=== PATIENT | male | born 1945 | race American Indian/Alaskan Native ===

== ENCOUNTER 2018-02-06 23:53 | Emergency (ER) | payer MEDICARE, OTHER ==
[~2018-02-06] VITALS: Ht 190.5 cm; Wt 108.9 kg
--- OUTSIDE RECORDS SUMMARY | ~2018-02-06 | XMS | Clinical Summary ---
Demographics + + + | Address | [id number] [place] [address] RD | | | [place] [address] | + + + | Home Phone | | + + + | Preferred Language | Unknown | + + + | Marital Status | Single | + + + | Scientology Affiliation | Unknown | + + + | Race | Unknown | + + + | Ethnic Group | Unknown | + + + Author + + + | Author | [employer] | + + + | Organization | [facility] [employer] | + + + | Address | Unknown | + + + | Phone | Unavailable | + + + Support + + +---------+ + | Name | Relationship | Address | Phone | + + +---------+ + | Lesli Garcia | ECON | Unknown | | + + +---------+ + Care Team Providers + +------+ + | Care Hot Knife Foxing Cutter Name | Role | Phone | + +------+ + | Clinic, [facility] | PP | Unavailable | | Community | | | + +------+ + Allergies Not on [...] | + + + Plan of Treatment Not on file Results Not on filefrom Last 3 Months"
--- OUTSIDE RECORDS SUMMARY | ~2018-02-06 | XMS | Clinical Summary ---
Demographics + + + | Address | [address] | | | [place] [address] | + + + | Home Phone | | + + + | Preferred Language | Unknown | + + + | Marital Status | Single | + + + | Pentecostal Affiliation | Unknown | + + + | Race | Unknown | + + + | Ethnic Group | Unknown | + + + Author + + + | Author | [facility] | | | and [facility] | + + + | Organization | [facility] | | | and [facility] | + + + | Address | Unknown | + + + | Phone | Unavailable | + + + Support + + + + + | Name | Relationship | Address | Phone | + + + + + | Maria T Vivas | ECON | [address] | | | | | [place], [place] | | | | | [address] | | + + + + + | Lesli Garcia | LAINA | [address] | | | | | [place], [place] | | | | | [address] | | + + + + + Care Team Providers + +------+ + | Care Asphalt Coater Name | Role | Phone | + [...] Eye Exam | | | | | (Bi-Annually) | 3 | | | + + [...] | + + + + + | COLON CANCER | | | | | SCREENING | 5 | | | | (COLONOSCOPY EVERY | | | | | 10 YEARS 50-75) | | | | + + + + + | Vaccine: | | | | | Pneumococcal 65+ | 0 | | | | Low/Medium Risk (1 | | | | | of 2 - PCV13) | | | | + + + + + | Vaccine: Influenza | | | | | (Season Ended) | 8 | | | + + [...] +--------+ +---------+ | MEDICARE | MEDICA | xxxxxxxxxx | Medica | [phone] | | | | RE | | re | [phone] | | | | PART A | | | | | | | AND B | | | | | + +--------+ +--------+ +---------+ | [facility] | IHS | xxxxxxxxx | Indemn | | | | SERVICE [...] | Self | [birth year] Home: | [address] | | | al/Fam | | 1946 | [phone] | [address] [place] | | | [place] | | | [phone] | [phone] | + +--------+ +--------+ + +
--- OUTSIDE RECORDS SUMMARY | ~2018-02-06 | XMS | Clinical Summary ---
Demographics + + + | Address | [address] | | | [place] [address] | + + + | Home Phone | | + + + | Preferred Language | Unknown | + + + | Marital Status | Single | + + + | Samaritan Affiliation | Unknown | + + + | Race | Unknown | + + + | Ethnic Group | Unknown | + + + Author + + + | Author | [facility] | | | and [facility] | + + + | Organization | [facility] | | | and [facility] | + + + | Address | Unknown | + + + | Phone | Unavailable | + + + Support + + + + + | Name | Relationship | Address | Phone | + + + + + | Maria T Vivas | ECON | [address] | | | | | [place], [place] | | | | | [address] | | + + + + + | Lesli Garcia | LAINA | [address] | | | | | [place], [place] | | | | | [address] | | + + + + + Care Team Providers + +------+ + | Care Grocery Carrier Name | Role | Phone | + [...] | | + +--------+ +--------+ +---------+ | [facility] | IHS | xxxxxxxxx | Indemn [...] | Self | [birth year] | Home: | [address] | | | al/Fam | | 1946 | [phone] | [address] [place] | | | [place] | | | [phone] | [phone] | + +--------+ +--------+ + +
--- OUTSIDE RECORDS SUMMARY | ~2018-02-06 | XMS | Clinical Summary ---
Demographics + + + | Address | [id number] [place] [address] RD | | | [place] [address] | + + + | Home Phone [...] + + + | Author | [employer] | + + + | Organization | [facility] [employer] | + + + | Address | Unknown | + + + | Phone | Unavailable | + + + Support + + +---------+ + | Name | Relationship | Address | Phone | + + +---------+ + | Lesli Garcia | ECON | Unknown | | + + +---------+ + Care Team Providers + +------+ + | Care Web Site Specialist Name | Role | Phone | + +------+ + | Clinic, [facility] | PP | Unavailable | | Community [...]
[~2018-02-06 23:53] MED LIST: AMARYL4 MG PO; ANUSOL-HC25 MG RC; ASPIR 8181 MG PO; CIALIS20 MG PO; CLINDAMYCIN HC300 MG PO; D-20002000 UNIT PO; DOXYCYCLINE HY100 MG PO; HYDROCHLOROTH12.5 M1 PO; IPRAT-ALBUT 0.5-3 ML INH; JANUMET XR 50-1 EAC1 PO; LANTUS SOL100 UNIT/1 SUB-Q; LANTUS100 UNITS/ SUB-Q; LISINOPRIL40 MG PO; METFORMIN HCL1000 MG PO; METOPROLOL SUC100 MG PO; METOPROLOL SUCC50 MG; MICRO AIR1 EACH MISC; NAPROSYN500 MG PO; PREDNISONE20 MG PO; ROSUVASTATIN CA20 MG PO; ZOFRAN ODT4 MG PO; [UNRECOGNIZED DRUG - OTHER] TOP; [UNRECOGNIZED DRUG - REMARK]
[2018-02-07] MEDS ORDERED: VITAMIN D-32000 UNIT PO (00:05)
[2018-02-07] MEDS ORDERED: JANUMET XR 50-1 EAC1 PO (00:06)
[2018-02-07] MEDS ORDERED: MEGA MULTI FOR1 EAC1 PO (00:07)
[2018-02-07] MEDS ORDERED: LANTUS SOL100 UNIT/1 SUB-Q (00:10)
== END 2018-02-07 01:27 | disposition home or self-care (01) ==
LOC: ED 23:53
DX: I10 Essential (primary) hypertension (principal); E11.9 Type 2 diabetes mellitus without complications; E78.00 Pure hypercholesterolemia, unspecified; Z87.891 Personal history of nicotine dependence; Z88.0 Allergy status to penicillin; Z88.8 Allergy status to other drugs, medicaments and biological substances; Z88.1 Allergy status to other antibiotic agents; Z79.4 Long term (current) use of insulin; Z79.82 Long term (current) use of aspirin; Z79.899 Other long term (current) drug therapy
CPT/HCPCS: 99281

== ENCOUNTER 2018-02-08 12:44 | Emergency (ER) | payer MEDICARE, OTHER ==
[~2018-02-08] VITALS: Ht 190.5 cm; Wt 108.9 kg
[~2018-02-08 12:44] MED LIST changes: +MEGA MULTI FOR1 EAC1 PO; +VITAMIN D-32000 UNIT PO
== END 2018-02-08 15:15 | disposition home or self-care (01) ==
LOC: ED 12:44
DX: I10 Essential (primary) hypertension (principal); E11.9 Type 2 diabetes mellitus without complications; E78.00 Pure hypercholesterolemia, unspecified; Z87.891 Personal history of nicotine dependence; Z88.0 Allergy status to penicillin; Z88.8 Allergy status to other drugs, medicaments and biological substances; Z88.1 Allergy status to other antibiotic agents; Z79.899 Other long term (current) drug therapy; Z79.4 Long term (current) use of insulin; Z79.82 Long term (current) use of aspirin
CPT/HCPCS: 99282

== ENCOUNTER 2018-12-23 15:55 | Emergency (ER) | payer MEDICARE, OTHER ==
[~2018-12-23] VITALS: Ht 190.5 cm; Wt 108.9 kg
--- OUTSIDE RECORDS SUMMARY | ~2018-12-23 | XMS | Clinical Summary ---
Demographics + + + | Address | [address] | | | [place] [address] | + + + | Home Phone | | + + + | Preferred Language | Unknown | + + + | Marital Status | Single | + + + | Sabianist Affiliation | Unknown | + + + | Race | Unknown | + + + | Ethnic Group | Unknown | + + + Author + + + | Author | [facility] | | | and [facility] | + + + | Organization | [facility] | | | and [facility] | + + + | Address | Unknown | + + + | Phone | Unavailable | + + + Support + + + + + | Name | Relationship | Address | Phone | + + + + + | Maria T Vivas | ECON | [address] | | | | | [place], [place] | | | | | [address] | | + + + + + | Lesli Garcia | LAINA | [address] | | | | | [place], [place] | | | | | [address] | | + + + + + Care Team Providers + +------+ + | Care River Guide Name | Role | Phone | + +------+ + | Maikol Birmingham DO | PP | | + +------+ + Allergies + + + + + + | Active Allergy | Reactions | Severity | Noted | Comments | | | | | Date | | + + + + + + | Penicillins | | | 10/01/20 | | | | | | 17 | | + + + + + + Current Medications + + +-------+---------+------+------+-------+ | Prescription | Sig. | Disp. | Refills | Star | End | Statu | | | | | | t | Date | s | | | | | | Date | | | + + +-------+---------+------+------+-------+ | aspirin 81 mg EC | Take 81 mg by mouth | | | | | Activ | | tablet | Daily. | | | | | e | + + +-------+---------+------+------+-------+ | cholecalciferol | Take 2,000 Units by | | | | | Activ | | (D3 HIGH POTENCY) | mouth Daily. | | | | | e | | 2,000 units capsule | | | | | | | + + +-------+---------+------+------+-------+ | insulin glargine | Inject under the | | | | | Activ | | (LANTUS) 100 | skin nightly. | | | | | e | | units/mL injection | | | | | | | | (vial) | | | | | | | + + +-------+---------+------+------+-------+ | glimepiride | Take 4 mg by mouth | | | | | Activ | | (AMARYL) 4 mg tablet | every morning | | | | | e | | | (before breakfast). | | | | | | + + +-------+---------+------+------+-------+ | | Take 5 mLs by mouth | | | | | Activ | | guaiFENesin-dextrome | 3 times daily as | | | | | e | | thorphan (ROBITUSSIN | needed for Cough. | | | | | | | DM) 100-10 mg/5 mL | | | | | | | | syrup | | | | | | | + + +-------+---------+------+------+-------+ | lisinopril | Take 40 mg by mouth | | | | | Activ | | (PRINIVIL,ZESTRIL) | Daily. | | | | | e | | 40 MG tablet | | | | | | | + + +-------+---------+------+------+-------+ | metoprolol | Take 100 mg by mouth | | | | | Activ | | succinate | Daily. | | | | | e | | (TOPROL-XL) 100 mg | | | | | | | | ER tablet | | | | | | | + + +-------+---------+------+------+-------+ | omeprazole | Take 20 mg by mouth | | | | | Activ | | (PRILOSEC) 20 mg | every morning | | | | | e | | capsule | (before breakfast). | | | | | | + + +-------+---------+------+------+-------+ | rosuvastatin | Take 20 mg by mouth | | | | | Activ | | (CRESTOR) 20 mg | nightly. | | | | | e | | tablet | | | | | | | + + +-------+---------+------+------+-------+ | | Take 1 tablet by | | | | | Activ | | sitagliptan-metFORMI | mouth 2 times daily | | | | | e | | N (JANUMET) 50-1000 | (with breakfast & | | | | | | | MG per tablet | dinner). | | | | | | + + +-------+---------+------+------+-------+ | tadalafil (CIALIS) | Take 20 mg by mouth | | | | | Activ | | 20 MG tablet | as needed for | | | | | e | | | Erectile | | | | | | | | Dysfunction. 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) | 10/01/2017 | + + + | Chronic hoarseness | 10/01/2017 | + + + | Cough | 10/01/2017 | + + + Social History + +-------+ [...] on file | | + + + Last Filed Vital Signs + + + + | Vital Sign | Reading | Time Taken | + + + + | Blood Pressure | 203/93 | 10/01/2017 0749 PST | + + + + | Pulse | 62 | 10/01/2017 1322 PST | + + + + | Temperature | 1 C (33.8 F) | 10/01/201749 PST | + + + [...] | Body Mass Index | 32.85 | 10/01/2017 1322 PST | + + + + Plan of Treatment + [...] + + + + | Hemoglobin A1c Q3 | | | | | Months | 3 | | | + + [...] | | | | | (#1) | 8 | | | + + + + + Results Not on filefrom Last 3 Months Insurance + +--------+ +--------+ +---------+ | Payer | Benefi | Subscriber | Type | Phone | Address | | | t Plan | ID | | | | | | / | | | | | | | Group | | | | | + +--------+ +--------+ +---------+ | MEDICARE | MEDICA | [id number] | Medica | [phone] | | | | RE | | re | [phone] | | | | PART A | | | | | | | AND B | | | | | + +--------+ +--------+ +---------+ | HEALTH | IHS | [id number] | Indemn | | | | SERVICE | YELLOW | | ity | | | | | [place] | | | | | + +--------+ +--------+ +---------+ + +--------+ +--------+ + + | Guarantor Name | Accoun | Relation to | Date | Phone | Billing Address | | | t Type | Patient | of | | | | | | | | | | + +--------+ +--------+ + + | PATRICIO VIVAS | Person | Self | [birth year] Home: | [address] | | | al/Fam | | 1946 | [phone] | [place] | | | [place] | | | [phone] | [phone] | + +--------+ +--------+ + +
--- OUTSIDE RECORDS SUMMARY | ~2018-12-23 | XMS | Clinical Summary ---
Demographics + + + | Address | [address] | | | [place] [address] | + + + | Home Phone | | + + + | Preferred Language | Unknown | + + + | Marital Status | Single | + + + | Gnosticism Affiliation | Unknown | + + + | Race | Unknown | + + + | Ethnic Group | Unknown | + + + Author + + + | Author | [facility] | | | and [facility] | + + + | Organization | [facility] | | | and [facility] | + + + | Address | Unknown | + + + | Phone | Unavailable | + + + Support + + + + + | Name | Relationship | Address | Phone | + + + + + | Maria T Vivas | ECON | [address] | | | | | [place], [place] | | | | | [address] | | + + + + + | Lesli Garcia | LAINA | [address] | | | | | [place], [place] | | | | | [address] | | + + + + + Care Team Providers + +------+ + | Care Christmas Tree Grower Name | Role | Phone | + [...] +--------+ +---------+ | MEDICARE | MEDICA | [id number] | Medica | [phone] | | | | RE | | re | [phone] | | | | PART A | | | | | | | AND B | | | | | + +--------+ +--------+ +---------+ | HEALTH | IHS | [id number] | Indemn | | | | SERVICE [...] | Self | [birth year] | Home: | [address] | | | al/Fam | | 1946 | [phone] | [place] | | | [place] | | | [phone] | [phone] | + +--------+ +--------+ + +
--- OUTSIDE RECORDS SUMMARY | ~2018-12-23 | XMS | Clinical Summary ---
Demographics + + + | Address | [address] [place] [address] RD | | | [place] [address] | + + + | Home Phone | | + + + | Preferred Language | Unknown | + + + | Marital Status | Single | + + + | Voodoo Affiliation | Unknown | + + + | Race | Unknown | + + + | Ethnic Group | Unknown | + + + Author + + + | Author | [employer] [employer] | + + + | Organization | [facility] [employer] [facility] | + + + | Address | Unknown | + + + | Phone | Unavailable | + + + Support + + +---------+ + | Name | Relationship | Address | Phone | + + +---------+ + | Lesli Garcia | ECON | Unknown | | + + +---------+ + Care Team Providers + +------+ + | Care Supervisor Phosphorus Processing Name | Role | Phone | + [...]
--- OUTSIDE RECORDS SUMMARY | ~2018-12-23 | XMS | Clinical Summary ---
Demographics + + + | Address | [address] [place] [address] RD | | | [place] [address] | + + + | Home Phone [...] + + + | Author | [employer] | + + + | Organization | [facility] [employer] | + + + | Address | Unknown | + + + | Phone | Unavailable | + + + Support + + +---------+ + | Name | Relationship | Address | Phone | + + +---------+ + | Lesli Garcia | ECON | Unknown | | + + +---------+ + Care Team Providers + +------+ + | Care Heel Scorer Name | Role | Phone | + [...]
== END 2018-12-23 17:11 | disposition home or self-care (01) ==
LOC: ED 15:55
DX: G43.109 Migraine with aura, not intractable, without status migrainosus (principal); E11.9 Type 2 diabetes mellitus without complications; I10 Essential (primary) hypertension; E78.00 Pure hypercholesterolemia, unspecified; F17.200 Nicotine dependence, unspecified, uncomplicated; Z90.49 Acquired absence of other specified parts of digestive tract; Z88.0 Allergy status to penicillin; Z88.1 Allergy status to other antibiotic agents; Z88.8 Allergy status to other drugs, medicaments and biological substances; Z79.82 Long term (current) use of aspirin; Z79.4 Long term (current) use of insulin; Z79.899 Other long term (current) drug therapy
CPT/HCPCS: 96372; 99283-25; J1885; J2550

== ENCOUNTER 2019-04-05 15:43 | Emergency (ER) | payer MEDICARE, OTHER ==
[~2019-04-05] VITALS: Ht 190.5 cm; Wt 109.8 kg
--- NOTE | 2019-04-07 11:37 | EKG ---
[facility] [address] [place], [place] [address] Signed Sinus bradycardia Right bundle branch block Abnormal ECG When compared with ECG of 13-AUG-2017 18:19, Right bundle branch block is now present Confirmed by COLT CISNEROS DO ([id number]) on 04/07/2019 11:37:21 AM Electronically Signed By: COLT CISNEROS DO 04/07/19 1137 PATIENT NAME: CLAUDETTE VIVASO [facility] Electrocardiogram DATE OF : 43 PHYSICIAN: COLT CISNEROS DO REPORT #: [id number] REPORT IS CONFIDENTIAL AND NOT TO BE RELEASED WITHOUT AUTHORIZATION
== END 2019-04-05 17:05 | disposition home or self-care (01) ==
LOC: ED 15:43
DX: I10 Essential (primary) hypertension (principal); E11.9 Type 2 diabetes mellitus without complications; Z87.891 Personal history of nicotine dependence; Z90.89 Acquired absence of other organs; Z88.0 Allergy status to penicillin; Z88.1 Allergy status to other antibiotic agents; Z88.8 Allergy status to other drugs, medicaments and biological substances; Z79.4 Long term (current) use of insulin; Z79.82 Long term (current) use of aspirin; Z79.899 Other long term (current) drug therapy
CPT/HCPCS: 80053; 85025; 93005; 93010; 99283-25

== ENCOUNTER 2019-07-13 22:23 | Emergency (ER) | payer MEDICARE, OTHER ==
[~2019-07-13] VITALS: Ht 190.5 cm; Wt 111.1 kg
--- OUTSIDE RECORDS SUMMARY | ~2019-07-13 | XMS | Clinical Summary ---
Demographics + + + | Address | [address] [place] [address] RD | | | [place] [address] | + + + | Home Phone | | + + + | Preferred Language | Unknown | + + + | Marital Status | Single | + + + | Mormonism Affiliation | Unknown | + + + | Race | Unknown | + + + | Ethnic Group | Unknown | + + + Author + + + | Author | [facility] (Historical as of | | | 05-21-19) | + + + | Organization | [facility] (Historical as of | | | 05-21-19) | + + + | Address | Unknown | + + + | Phone | Unavailable | + + + Support + + +---------+ + | Name | Relationship | Address | Phone | + + +---------+ + | Lesli Garcia | ECON | Unknown | | + + +---------+ + Care Team Providers + +------+ + | Care Health Care Law Specialist Name | Role | Phone | + +------+ + | Dr. 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; | | | | | | Chest pain, | | | | | | unspecified type | +--------+ + + + + | 04/12/ | Documentati | | Santo De La O, | | | 2019 | on Only | | MD | | +--------+ + + + + from Last 3 Months Social History + +-------+ +--------+------+ | Tobacco Use | Types | Packs/Day | Years | Date | | | | | Used | | + +-------+ +--------+------+ | Never Assessed | | | | | + +-------+ +--------+------+ + + + | Sex Assigned at | Date Recorded | | | | + + + | Not on file | | + + + Plan of Treatment + + + + + | Health Maintenance | Due Date | Last Done | Comments | + + + + + | Vaccine: | | | | | Dtap/Tdap/Td (1 - | 4 | | | | Tdap) | | | | + + + + + | Vaccine: Zoster (1 | | | | | of 2) | 5 | | | + + + + + | Vaccine: | | | | | Pneumococcal 65+ | 0 | | | | Low/Medium Risk (1 | | | | | of 2 - PCV13) | | | | + + + + + | Vaccine: Influenza | | | | | (#1) | 9 | | | + + + + + Procedures + +--------+ + + + | Procedure Name | Priori | Date/Time | Associated Diagnosis | Comments | | | ty | | | | + +--------+ + + + | ECHO OUTSIDE | Routin | 05/02/2019 | Hypertension, | Results for this | | INTERPRETATION | e | 4:47 PM | unspecified type | procedure are in the | | STANDARD | | PDT | Chest pain, | results section. | | | | | unspecified type | | + +--------+ + + + from Last 3 Months Results ECHO outside interpretation standard (05/02/2019 4:47 PM) + + + | Impressions | Performed At | + + + | 1. Overall left ventricular systolic function is normal with, an EF | [facility] | | between 60 - 65 %. 2. The right ventricle is normal in size and | [facility] | | function. 3. There is no evidence of pulmonary hypertension. 4. | | | There is no pericardial effusion. | | + + + + + + | Narrative | Performed At | + + + | Patient Name: Patricio Vivas Date of : 1945 | [facility] | | Performing Physician: Santo De La O | RADIOLOGY | | | | | INDICATIONS HTN, CP CONCLUSIONS 1. | | | Overall left ventricular systolic function is normal with, an EF | | | between 60 - 65 %. 2. The right ventricle is normal in size and | | | function. 3. There is no evidence of pulmonary hypertension. 4. | | | There is no pericardial effusion. FINDINGS -------- ECG rhythm: | | | Sinus rhythm. ECG rhythm: Resting bradycardia (HR<60bpm). Study: A | | | 2-dimensional transthoracic echocardiogram with m-mode, spectral and | | | color flow Doppler was perfomed. Study: This was a technically | | | adequate study. Left Ventricle: Overall left ventricular systolic | | | function is normal with, an EF between 60 - 65 %. Left Ventricle: | | | The left ventricle cavity size is normal. Left Ventricle: Left | | | ventricular wall thickness is normal. Left Ventricle: The diastolic | | | filling pattern indicates impaired relaxation consistent with mild | | | dysfunction (Grade I). Right Ventricle: The right ventricle is normal | | | in size and function. Left Atrium: The left atrium is mildly | | | enlarged. Right Atrium: The right atrium is mildly enlarged. Aortic | | | Valve: There is no evidence of aortic regurgitation. Aortic Valve: | | | There is no evidence of aortic stenosis. Aortic Valve: The aortic | | | valve appears to be trileaflet. Aortic Valve: Aortic valve is mildly | | | thickened. Mitral Valve: Normal appearing mitral valve. Mitral | | | Valve: There is trace mitral regurgitation. Tricuspid Valve: The | | | tricuspid valve appears structurally normal. Tricuspid Valve: Mild | | | tricuspid regurgitation present. Tricuspid Valve: There is no | | | evidence of pulmonary hypertension. Tricuspid Valve: The right | | | ventricular systolic pressure (pulmonary artery systolic pressure), as | | | measured by Doppler, is 30.33mmHg. Pulmonic Valve: Pulmonic valve | | | appears structurally normal. Pulmonic Valve: Mild pulmonic | | | regurgitation. Pericardium: There is no pericardial effusion. | | | Pericardium: No pleural effusion seen. IVC/Hepatic Veins: The | | | inferior vena cava is normal in size and collapses > 50 % with sniff, | | | indicating normal central venous pressures. 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 | | | MEASUREMENTS Ao asc: 3.81 cm Ao sinus: 3.91 | | | cm Ao st junct: 3.58 cm EDV(Teich): 93.92 ml IVSd: | | | 1.12 cm LVIDd: 4.53 cm LVPWd: 1.05 cm LVOT Area: 4.11 | | | cm2 LVOT Diam: 2.29 cm %FS: 36.56 % EF(Teich): 66.45 % | | | ESV(Teich): 31.50 ml LVIDs: 2.87 cm SV(Teich): 62.41 ml | | | RV Major: 7.28 cm RV Minor: 3.01 cm LVEF MOD A2C: | | | 63.36 % SV MOD A2C: 60.01 ml LVEF MOD A4C: 63.25 % SV MOD | | | A4C: 85.18 ml EF Biplane: 63.89 % LVEDV MOD BP: 116.54 | | | ml LVESV MOD BP: 42.07 ml LVEDV MOD A2C: 94.71 ml LVLd | | | A2C: 8.44 cm LVEDV MOD A4C: 134.67 ml LVLd A4C: 9.04 cm | | | LVESV MOD A2C: 34.69 ml LVLs A2C: 7.07 cm LVESV MOD | | | A4C: 49.48 ml LVLs A4C: 7.35 cm LAESV(A-L): 69.12 ml | | | LAESV Index (A-L): 29.41 ml/m2 LAAs A2C: 18.54 cm2 LAESV A-L | | | A2C: 55.59 ml LALs A2C: 5.24 cm LAAs A4C: 20.75 cm2 | | | LAESV A-L A4C: 77.37 ml LALs A4C: 4.72 cm RAAs: 15.78 | | | cm2 RAESV A-L: 37.51 ml RAESV MOD: 37.87 ml RALs: 5.63 | | | cm TAPSE: 2.87 cm AV maxP.33 mmHg AV meanP.31 | | | mmHg AV Vmax: 1.35 m/s AV Vmean: 0.85 m/s AV VTI: 29.14 | | | cm VICKY Vmax: 3.33 cm2 VICKY (VTI): 3.99 cm2 AVAI (Vmax): | | | 0.00 cm2/m2 AVAI (VTI): 0.00 cm2/m2 LVOT maxP.79 mmHg | | | LVOT meanP.61 mmHg LVSI Dopp: 49.56 ml/m2 LVSV Dopp: | | | 116.47 ml LVOT Vmax: 1.09 m/s LVOT Vmean: 0.75 m/s LVOT | | | VTI: 28.29 cm MV A Stephen: 1.12 m/s MV Dec [place]: 3.54 m/s2 | | | MV DecT: 268.22 ms MV E Stepehn: 0.95 m/s MV E/A Ratio: | | | 0.84 MV PHT: 77.78 ms MVA By PHT: 2.82 cm2 Septal e': | | | 0.05 m/s Septal E/e': 16.37 Lateral e': 0.06 m/s Lateral | | | E/e': 14.01 RAP: 5 mmHg RVSP: 30.32 mmHg TR maxPG: | | | 25.32 mmHg TR Vmax: 2.51 m/s RV s': 0.16 m/s | | | Line Supply: WENDY Authenticated by: Santo De La O Report | | | Date/Time: 05-02-2019 17:39:38 | | + + + + + | Procedure Note | + + | Denny Deleon Results In 05/02/2019 5:40 PM PDT Patient Name: Cassy Vivas of | | : 5Accession: [id number] Physician: Santo | | Jairon INDICATIONS------ | | -----HTN, CPCONCLUSIONS 1. Overall left ventricular systolic function is | | normal with, an EF between 60 - 65 %.2. The right ventricle is normal in size and | | function.3. There is no evidence of pulmonary hypertension.4. There is no pericardial | | effusion.FINDINGS--------ECG rhythm: Sinus rhythm. ECG rhythm: Resting bradycardia | | (HR<60bpm).Study: A 2-dimensional transthoracic echocardiogram with m-mode, spectral and | | color flow Doppler was perfomed. Study: This was a technically adequate study.Left | | Ventricle: Overall left ventricular systolic function is normal with, an EF between 60 - | | 65 %. Left Ventricle: The left ventricle cavity size is normal. Left Ventricle: Left | | ventricular wall thickness is normal. Left Ventricle: The diastolic filling pattern | | indicates impaired relaxation consistent with mild dysfunction (Grade I).Right | | Ventricle: The right ventricle is normal in size and function.Left Atrium: The left | | atrium is mildly enlarged.Right Atrium: The right atrium is mildly enlarged.Aortic | | Valve: There is no evidence of aortic regurgitation. Aortic Valve: There is no evidence | | of aortic stenosis. Aortic Valve: The aortic valve appears to be trileaflet. Aortic | | Valve: Aortic valve is mildly thickened.Mitral Valve: Normal appearing mitral valve. | | Mitral Valve: There is trace mitral regurgitation.Tricuspid Valve: The tricuspid valve | | appears structurally normal. Tricuspid Valve: Mild tricuspid regurgitation present. | | Tricuspid Valve: There is no evidence of pulmonary hypertension. Tricuspid Valve: The | | right ventricular systolic pressure (pulmonary artery systolic pressure), as measured by | | Doppler, is 30.33mmHg.Pulmonic Valve: Pulmonic valve appears structurally normal. | | Pulmonic Valve: Mild pulmonic regurgitation.Pericardium: There is no pericardial | | effusion. 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 of valsalva | | measuring up to 3.9cm.MEASUREMENTS Ao asc: 3.81 cmAo sinus: 3.[address] | | junct: 3.58 cmEDV(Teich): 93.92 mlIVSd: 1.12 cmLVIDd: 4.53 cmLVPWd: 1.05 | | cmLVOT Area: 4.11 hr9VOKA Diam: 2.29 cm%FS: 36.56 %EF(Teich): 66.45 %ESV(Teich): | | 31.50 mlLVIDs: 2.87 cmSV(Teich): 62.41 mlRV Major: 7.28 cmRV Minor: 3.01 | | cmLVEF MOD A2C: 63.36 %SV MOD A2C: 60.01 mlLVEF MOD A4C: 63.25 %SV MOD A4C: | | 85.18 mlEF Biplane: 63.89 %LVEDV MOD BP: 116.54 mlLVESV MOD BP: 42.07 mlLVEDV MOD | | A2C: 94.71 mlLVLd A2C: 8.44 cmLVEDV MOD A4C: 134.67 mlLVLd A4C: 9.04 cmLVESV MOD | | A2C: 34.69 mlLVLs A2C: 7.07 cmLVESV MOD A4C: 49.48 mlLVLs A4C: 7.35 | | cmLAESV(A-L): 69.12 mlLAESV Index (A-L): 29.41 ml/m2LAAs A2C: 18.54 [id number] A-L | | A2C: 55.59 mlLALs A2C: 5.24 cmLAAs A4C: 20.75 [id number] A-L A4C: 77.37 mlLALs | | A4C: 4.72 cmRAAs: 15.78 [id number] A-L: 37.51 mlRAESV MOD: 37.87 mlRALs: 5.63 | | cmTAPSE: 2.87 cmAV maxP.33 mmHgAV meanP.31 mmHgAV Vmax: 1.35 m/Roberto | | Vmean: 0.85 m/Roberto VTI: 29.14 cmAVA Vmax: 3.33 cm2AVA (VTI): 3.99 [id number] (Vmax): | | 0.00 cm2/m2AVAI (VTI): 0.00 cm2/m2LVOT maxP.79 mmHgLVOT meanP.61 | | mmHgLVSI Dopp: 49.56 ml/m2LVSV Dopp: 116.47 mlLVOT Vmax: 1.09 m/sLVOT Vmean: | | 0.75 m/sLVOT VTI: 28.29 cmMV A Stephen: 1.12 m/sMV Dec [place]: 3.54 m/s2MV DecT: | | 268.22 msMV E Stephen: 0.95 m/sMV E/A Ratio: 0.84 MV PHT: 77.78 msMVA By PHT: 2.82 | | [id number] e': 0.05 m/sSeptal E/e': 16.37 Lateral e': 0.06 m/sLateral E/e': 14.01 | | RAP: 5 mmHgRVSP: 30.32 mmHgTR maxP.32 mmHgTR Vmax: 2.51 m/sRV s': 0.16 | | m/sSonographer: DBSAuthenticated by: Santo [facility] Date/Time: 05-02-2019 | | 17:39:38IMPRESSION:1. Overall left ventricular systolic function is normal with, an EF | | between 60 - 65 %.2. The right ventricle is normal in size and function.3. There is no | | evidence of pulmonary hypertension.4. There is no pericardial effusion. | | | |Ao asc: 3.81 cm | |Ao sinus: 3.91 cm | |Ao st junct: 3.58 cm | |EDV(Teich): 93.92 ml | |IVSd: 1.12 cm | |LVIDd: 4.53 cm | |LVPWd: 1.05 cm | |LVOT Area: 4.11 cm2 | |LVOT Diam: 2.29 cm | |%FS: 36.56 % | |EF(Teich): 66.45 % | |ESV(Teich): 31.50 ml | |LVIDs: 2.87 cm | |SV(Teich): 62.41 ml | |RV Major: 7.28 cm | |RV Minor: 3.01 cm | |LVEF MOD A2C: 63.36 % | |SV MOD A2C: 60.01 ml | |LVEF MOD A4C: 63.25 % | |SV MOD A4C: 85.18 ml | |EF Biplane: 63.89 % | |LVEDV MOD BP: 116.54 ml | |LVESV MOD BP: 42.07 ml | |LVEDV MOD A2C: 94.71 ml | |LVLd A2C: 8.44 cm | |LVEDV MOD A4C: 134.67 ml | |LVLd A4C: 9.04 cm | |LVESV MOD A2C: 34.69 ml | |LVLs A2C: 7.07 cm | |LVESV MOD A4C: 49.48 ml | |LVLs A4C: 7.35 cm | |LAESV(A-L): 69.12 ml | |LAESV Index (A-L): 29.41 ml/m2 | |LAAs A2C: 18.54 cm2 | |LAESV A-L A2C: 55.59 ml | |LALs A2C: 5.24 cm | |LAAs A4C: 20.75 cm2 | |LAESV A-L A4C: 77.37 ml | |LALs A4C: 4.72 cm | |RAAs: 15.78 cm2 | |RAESV A-L: 37.51 ml | |RAESV MOD: 37.87 ml | |RALs: 5.63 cm | |TAPSE: 2.87 cm | |AV maxP.33 mmHg | |AV meanP.31 mmHg | |AV Vmax: 1.35 m/s | |AV Vmean: 0.85 m/s | |AV VTI: 29.14 cm | |VICKY Vmax: 3.33 cm2 | |VICKY (VTI): 3.99 cm2 | |AVAI (Vmax): 0.00 cm2/m2 | |AVAI (VTI): 0.00 cm2/m2 | |LVOT maxP.79 mmHg | |LVOT meanP.61 mmHg | |LVSI Dopp: 49.56 ml/m2 | |LVSV Dopp: 116.47 ml | |LVOT Vmax: 1.09 m/s | |LVOT Vmean: 0.75 m/s | |LVOT VTI: 28.29 cm | |MV A Stephen: 1.12 m/s | |MV Dec [place]: 3.54 m/s2 | |MV DecT: 268.22 ms | |MV E Stephen: 0.95 m/s | |MV E/A Ratio: 0.84 | |MV PHT: 77.78 ms | |MVA By PHT: 2.82 cm2 | |Septal e': 0.05 m/s | |Septal E/e': 16.37 | |Lateral e': 0.06 m/s | |Lateral E/e': 14.01 | |RAP: 5 mmHg | |RVSP: 30.32 mmHg | |TR maxP.32 mmHg | |TR Vmax: 2.51 m/s | |RV s': 0.16 m/s | | | |Line Supply: DBS | |Authenticated by: Santo De La O | |Report Date/Time: 05-02-2019 17:39:38 | | | |IMPRESSION: | |1. Overall left ventricular systolic function is normal with, an EF between 60 - 65 %. | |2. The right ventricle is normal in size and function. | |3. There is no evidence of pulmonary hypertension. | |4. There is no pericardial effusion. | + + + + + + + | Performing | Address | City/State/Zipcode | Phone Number | | Organization | | | | + + + + + | [facility] | [address] | [place] [address] | | + + + + + from Last 3 Months Insurance + +--------+ +------+-------+ + | Payer | Benefi | Subscriber | Type | Phone | Address | | | t Plan | ID | | | | | | / | | | | | | | Group | | | | | + +--------+ +------+-------+ + | MEDICARE | MEDICA | [id number] | | | [address] | | | RE | | | | [place] [phone] | | | IP-OP | | | | | + +--------+ +------+-------+ + | [employer] [facility] | YELLOW | [id number] | | | | | PLANS | [place] | | | | | + +--------+ +------+-------+ + + +--------+ +--------+ + + | Guarantor Name | Accoun | Relation to | Date | Phone | Billing Address | | | t Type | Patient | of | | | | | | | | | | + +--------+ +--------+ + + | PATRICIO VIVAS | Person | Self [birth year] Home: | [address] | | | al/Fam | | 1946 | [phone] [place] | | | [place] | | | [phone] | [phone] | + +--------+ +--------+ + +"
--- OUTSIDE RECORDS SUMMARY | ~2019-07-13 | XMS | Encounter Summary ---
Demographics + + + | Address | [address] [place] [address] RD | | | [place] [address] | + + + | Home Phone | | + + + | Preferred Language | Unknown | + + + | Marital Status | Single | + + + | Orthodox Affiliation | Unknown | + + + | Race | Unknown | + + + | Ethnic Group | Unknown | + + + Author + + + | Author | [facility] | | | and [place] | + + + | Organization | [facility] | | | and [place] | + + + | Address | Unknown | + + + | Phone | Unavailable | + + + Support + + +---------+ + | Name | Relationship | Address | Phone | + + +---------+ + | Garcia,Lesli | ECON | Unknown | | + + +---------+ + Care Team Providers + +------+ + | Care Hedis Registered Nurse Rn Name | Role | Phone | + +------+ + | Maikol Birmingham DO | PCP | | + +------+ + Encounter Details +--------+ + + + + | Date | Type | Department | Care Team | Description | +--------+ + + + + | 05/02/ | Orders Only | [facility] | Conversion | | | 2018 | | CONVERSION 888 | Transaction, | | | | | [place] | Provider Unknown | | | | | [place] | [phone] | | | | | [phone] | | | | | | [phone] | | | +--------+ + + + + Social History + +-------+ +--------+------+ | Tobacco Use | Types | Packs/Day | Years | Date | | | | | Used | | + +-------+ +--------+------+ | Smoker, Current | | | | | | Status Unknown | | | | | + +-------+ +--------+------+ + +---+---+---+ | Smokeless Tobacco: | | | | | Current User | | | | + +---+---+---+ + + + | Sex Assigned at [...] + + documented as of this encounter Plan of Treatment +--------+---------+ + + + | Date | Type | Specialty | Care Team | Description | +--------+---------+ + + + | 07/28/ | Office | Cardiology | Charlotte Lobato DO | | | 2019 | Visit | | [address] | | | | | | [place] | | | | | | [address] | | | | | | | | +--------+---------+ + + + documented as of this encounter Procedures + +--------+ + + + | Procedure Name | Priori | Date/Time | Associated Diagnosis | Comments | | | ty | | | | + +--------+ + + + | ECHO INTERPRETATION | Routin | 05/02/2019 | | Results for this | | OF OUTSIDE FILMS | e | 16:47 PDT | | procedure are in the | | | | | | results section. | + +--------+ + + + documented in this encounter Results ECHO Interpretation of Outside Films (05/02/2019 16:47 PDT) + + | Specimen | + + | | + + + + + | Impressions | Performed [...] | + + + | Patient Name: Yefri Moreno Date of : 1945 | | | Performing Physician: Santo De La O | | | | | | INDICATIONS HTN, [...] between 60 - 65 %. Left Ventricle: The | | | left ventricle cavity size is normal. Left [...] MV A Stephen: 1.12 m/s MV Dec Jackson: 3.54 m/s2 | | | MV DecT: 268.22 ms MV E Stephen: 0.95 m/s MV E/A Ratio: | | | 0.84 MV PHT: 77.78 ms MVA By PHT: 2.82 cm2 Septal e': | | | 0.05 m/s Septal E/e': 16.37 Lateral e': 0.06 m/s Lateral | | | E/e': 14.01 RAP: 5 mmHg RVSP: 30.32 mmHg TR maxPG: | | | 25.32 mmHg TR Vmax: 2.51 m/s RV s': 0.16 m/s | | | Nutritionist Public Health: WENDY Authenticated by: Santo eD La O Report | | | Date/Time: 05-02-2019 17:39:38 | | + + + + + | Procedure Note | + + | Pancho, Rad Conversion - 05/26/2019 1238 PDT Patient Name: Cassy Moreno of : | | 1945 Performing Physician: Santo | | Jairon INDICATIONS------ | | -----HTN, CP CONCLUSIONS 1. Overall left ventricular systolic function is | | normal with, an EF between 60 - 65 %.2. The right ventricle is normal in size and | | function.3. There is no evidence of pulmonary hypertension.4. There is no pericardial | | effusion. FINDINGS--------ECG rhythm: Sinus rhythm.ECG rhythm: Resting bradycardia | | (HR<60bpm).Study: A 2-dimensional transthoracic echocardiogram with m-mode, spectral and | | color flow Doppler was perfomed.Study: This was a technically adequate study.Left | | Ventricle: Overall left ventricular systolic function is normal with, an EF between 60 - | | 65 %.Left Ventricle: The left ventricle cavity size is normal.Left Ventricle: Left | | ventricular wall thickness is normal.Left Ventricle: The diastolic filling pattern | | indicates impaired relaxation consistent with mild dysfunction (Grade I).Right | | Ventricle: The right ventricle is normal in size and function.Left Atrium: The left | | atrium is mildly enlarged.Right Atrium: The right atrium is mildly enlarged.Aortic | | Valve: There is no evidence of aortic regurgitation.Aortic Valve: There is no evidence | | of aortic stenosis.Aortic Valve: The aortic valve appears to be trileaflet.Aortic Valve: | | Aortic valve is mildly thickened.Mitral Valve: Normal appearing mitral valve.Mitral | | Valve: There is trace mitral regurgitation.Tricuspid Valve: The tricuspid valve appears | | structurally normal.Tricuspid Valve: Mild tricuspid regurgitation present.Tricuspid | | Valve: There is no evidence of pulmonary hypertension.Tricuspid Valve: The right | | ventricular systolic pressure (pulmonary artery systolic pressure), as measured by | | Doppler, is 30.33mmHg.Pulmonic Valve: Pulmonic valve appears structurally | | normal.Pulmonic Valve: Mild pulmonic regurgitation.Pericardium: There is no pericardial | | effusion.Pericardium: No pleural effusion seen.IVC/Hepatic Veins: The inferior vena cava | | is normal in size and collapses > 50 % with sniff, indicating normal central venous | | pressures.Aorta: The aortic root is dilated, limited to the sinuses of valsalva | | measuring up to 3.9cm. MEASUREMENTS Ao asc: 3.81 cmAo sinus: 3.91 cmAo | | st junct: 3.58 cmEDV(Teich): 93.92 mlIVSd: 1.12 cmLVIDd: 4.53 cmLVPWd: 1.05 | | cmLVOT Area: 4.11 [id number] Diam: 2.29 cm%FS: 36.56 %EF(Teich): 66.45 %ESV(Teich): [...] mlLAESV Index (A-L): 29.41 ml/m2LAAs A2C: 18.54 [id number] A-L | | A2C: 55.59 mlLALs A2C: 5.24 cmLAAs A4C: 20.75 qf6CBOIF A-L A4C: 77.37 mlLALs | | A4C: 4.72 cmRAAs: 15.78 [id number] A-L: 37.51 mlRAESV MOD: 37.87 mlRALs: 5.63 | | cmTAPSE: 2.87 cmAV maxP.33 mmHgAV meanP.31 mmHgAV Vmax: 1.35 m/Roberto | | Vmean: 0.85 m/Roberto VTI: 29.14 cmAVA Vmax: 3.33 cm2AVA (VTI): 3.99 [id number] (Vmax): | | 0.00 cm2/m2AVAI (VTI): 0.00 cm2/m2LVOT maxP.79 mmHgLVOT meanP.61 | | mmHgLVSI Dopp: 49.56 ml/m2LVSV Dopp: 116.47 mlLVOT Vmax: 1.09 m/sLVOT Vmean: | | 0.75 m/sLVOT VTI: 28.29 cmMV A Stephen: 1.12 m/sMV Dec Jackson: 3.54 m/s2MV DecT: | | 268.22 msMV E Stephen: 0.95 m/sMV E/A Ratio: 0.84MV PHT: 77.78 msMVA By PHT: 2.82 | | [id number] e': 0.05 m/sSeptal E/e': 16.37Lateral e': 0.06 m/sLateral E/e': | | 14.01RAP: 5 mmHgRVSP: 30.32 mmHgTR maxP.32 mmHgTR Vmax: 2.51 m/sRV s': | | 0.16 m/s Nutritionist Public Health: DBSAuthenticated by: Santo Soliman Date/Time: 05-02-2019 | | 17:39:38 IMPRESSION: 1. Overall left ventricular systolic function is [...] A Stephen: 1.12 m/s | |MV Dec Jackson: 3.54 m/s2 | |MV DecT: 268.22 ms [...] |RV s': 0.16 m/s | | | |Nutritionist Public Health: DBS | |Authenticated by: Santo De La [...] is no pericardial effusion. | + + documented in this encounter Visit Diagnoses Not on filedocumented in this encounter"
--- OUTSIDE RECORDS SUMMARY | ~2019-07-13 | XMS | Encounter Summary ---
Demographics + + + | Address | [address] [place] [address] RD | | | [place] [address] | + + + | Home Phone | | + + + | Preferred Language | Unknown | + + + | Marital Status | Single | + + + | Jew Affiliation | Unknown | + + + | Race | Unknown | + + + | Ethnic Group | Unknown | + + + Author + + + | Author | [employer] (Historical as of | | | 05-21-19) | + + + | Organization | [facility] [employer] (Historical as of | | | 05-21-19) [...] Team Providers + +------+ + | Care Telecommunications Linesworker Name | Role | Phone | + +------+ + | Dr. Viktor | PCP | Unavailable | + +------+ + Encounter Details +--------+ + + + + | Date | Type | Department | Care Team | Description | +--------+ + + + + | 05/02/ | Ancillary | [facility] | Elidia Gray, | Hypertension, | | 2019 | Procedure | ECHO | CONFERENCE SERVICE COORDINATOR [address] | unspecified type; | | | | | [address] | Chest pain, | | | | | [place] [address] | unspecified type | | | | | [phone] | | | | | | | | +--------+ + + + [...] Treatment Not on fileas of this encounter Procedures + +--------+ + [...] | | + +--------+ + + + in this encounter Results ECHO outside interpretation standard (05/02/2019 4:47 [...] Yefri Moreno Date of : 1945 | [facility] | | Performing Physician: Santo De La [...] MV A Stephen: 1.12 m/s MV Dec [place]: 3.54 m/s2 | | | MV DecT: [...] RV s': 0.16 m/s | | | Laundry Agent: WENDY Authenticated by: Santo [place] Report | | | Date/Time: 05-02-2019 17:39:38 | | + + + + + | Procedure Note | + + | Pancho, Rad Results In - 05/02/2019 5:40 PM PDT Patient Name: Cassy Moreno of | | : 5Accession: [id number] Physician: Santo | | [place]sam[place] INDICATIONS------ | | -----HTN, CPCONCLUSIONS 1. Overall [...] cmLVPWd: 1.05 | | cmLVOT Area: 4.11 ce1YVCN Diam: 2.29 cm%FS: 36.56 %EF(Teich): 66.45 %ESV(Teich): [...] mlLAESV Index (A-L): 29.41 ml/m2LAAs A2C: 18.54 zh6YLNZW A-L | | A2C: 55.59 mlLALs A2C: 5.24 cmLAAs A4C: 20.75 ty8HEGFJ A-L A4C: 77.37 mlLALs | | A4C: 4.72 cmRAAs: 15.78 pr5TUKOO A-L: 37.51 mlRAESV MOD: 37.87 mlRALs: 5.63 | | cmTAPSE: 2.87 cmAV maxP.33 mmHgAV meanP.31 mmHgAV Vmax: 1.35 m/Roberto | | Vmean: 0.85 m/Roberto VTI: 29.14 cmAVA Vmax: 3.33 cm2AVA (VTI): 3.99 tz4ZHFV (Vmax): | | 0.00 cm2/m2AVAI (VTI): 0.00 cm2/m2LVOT maxP.79 mmHgLVOT meanP.61 | | mmHgLVSI Dopp: 49.56 ml/m2LVSV Dopp: 116.47 mlLVOT Vmax: 1.09 m/sLVOT Vmean: | | 0.75 m/sLVOT VTI: 28.29 cmMV A Stephen: 1.12 m/sMV Dec [place]: 3.54 m/s2MV DecT: | | 268.22 msMV E Stephen: 0.95 m/sMV E/A Ratio: 0.84 MV PHT: 77.78 msMVA By PHT: 2.82 | | ql4Yydgyv e': 0.05 m/sSeptal E/e': 16.37 Lateral e': 0.06 m/sLateral E/e': 14.01 | | RAP: 5 mmHgRVSP: 30.32 mmHgTR maxP.32 mmHgTR Vmax: 2.51 m/sRV s': 0.16 | | m/sSonographer: DBSAuthenticated by: Santo [facility] Date/Time: 05-02-2019 | | 17:39:38IMPRESSION:1. Overall left [...] A Stephen: 1.12 m/s | |MV Dec [place]: 3.54 m/s2 | |MV DecT: 268.22 ms [...] |RV s': 0.16 m/s | | | |Laundry Agent: DBS | |Authenticated by: Santo De La [...] | + + + + + | [facility] | [address] | [place] [address] | | + + + + + in this encounter Visit Diagnoses + + | Diagnosis | + + | Hypertension, unspecified type | + + | Chest pain, unspecified type | + +"
--- OUTSIDE RECORDS SUMMARY | ~2019-07-13 | XMS | Encounter Summary ---
Demographics + + + | Address | [address] [place] [address] RD | | | [place] [address] | + + + | Home Phone | | + + + | Preferred Language | Unknown | + + + | Marital Status | Single | + + + | Sikhism Affiliation | Unknown | + + + | Race | Unknown | + + + | Ethnic Group | Unknown | + + + Author + + + | Author | [employer] (Historical as of | | | 05-21-19) | + + + | Organization | [facility] [employer] (Historical as of | | | 05-21-19) [...] Team Providers + +------+ + | Care Self Propelled Hot Mix Roller Operator Name | Role | Phone | + [...] | 2019 | Procedure | ECHO | DIETARY AIDE TEACHER [address] | unspecified type; | | | | | WAY [address] | Chest pain, | | | | | [place] [address] | unspecified type | | | | | [phone] | | | | | | | [...] MV A Stephen: 1.12 m/s MV Dec [place]: 3.54 m/s2 | | | MV DecT: [...] RV s': 0.16 m/s | | | Client Service Supervisor: WENDY Authenticated by: Santo [place] Report | | | Date/Time: 05-02-2019 17:39:38 | | + + + + + | Procedure Note | + + | Pancho, Rad Results In - 05/02/2019 5:40 PM PDT Patient Name: Cassy Moreno of | | : 5Accession: [id number] Physician: Santo | | Alsamara INDICATIONS------ | [...] cmLVPWd: 1.05 | | cmLVOT Area: 4.11 [id number] Diam: 2.29 cm%FS: 36.56 %EF(Teich): 66.45 %ESV(Teich): [...] mlLAESV Index (A-L): 29.41 ml/m2LAAs A2C: 18.54 nj2BTTYR A-L | | A2C: 55.59 mlLALs A2C: 5.24 cmLAAs A4C: 20.75 kz1RTFHR A-L A4C: 77.37 mlLALs | | A4C: 4.72 cmRAAs: 15.78 pi1EBZQP A-L: 37.51 mlRAESV MOD: 37.87 mlRALs: 5.63 | | cmTAPSE: 2.87 cmAV maxP.33 mmHgAV meanP.31 mmHgAV Vmax: 1.35 m/Roberto | | Vmean: 0.85 m/Roberto VTI: 29.14 cmAVA Vmax: 3.33 cm2AVA (VTI): 3.99 sq0QIIO (Vmax): | | 0.00 cm2/m2AVAI (VTI): 0.00 cm2/m2LVOT maxP.79 mmHgLVOT meanP.61 | | mmHgLVSI Dopp: 49.56 ml/m2LVSV Dopp: 116.47 mlLVOT Vmax: 1.09 m/sLVOT Vmean: | | 0.75 m/sLVOT VTI: 28.29 cmMV A Stephen: 1.12 m/sMV Dec [place]: 3.54 m/s2MV DecT: | | 268.22 msMV E Stephen: 0.95 m/sMV E/A Ratio: 0.84 MV PHT: 77.78 msMVA By PHT: 2.82 | | vt7Hzhgid e': 0.05 m/sSeptal E/e': 16.37 Lateral e': 0.06 m/sLateral E/e': 14.01 | | RAP: 5 mmHgRVSP: 30.32 mmHgTR maxP.32 mmHgTR Vmax: 2.51 m/sRV s': 0.16 | | m/sSonographer: DBSAuthenticated by: Santo [facility] Date/Time: 05-02-2019 | | 17:39:38IMPRESSION:1. Overall left [...] A Stephen: 1.12 m/s | |MV Dec [place]: 3.54 m/s2 | |MV DecT: 268.22 ms [...] |RV s': 0.16 m/s | | | |Client Service Supervisor: DBS | |Authenticated by: Santo De La [...] HOSPITAL RADIOLOGY | [address] | [place] [address] | | + + + + + in this encounter Visit Diagnoses + + | Diagnosis | + + | Hypertension, unspecified type | + + | Chest pain, unspecified type | + +"
--- OUTSIDE RECORDS SUMMARY | ~2019-07-13 | XMS | Encounter Summary ---
Demographics + + + | Address | [address] [place] [address] RD | | | [place] [address] | + + + | Home Phone | | + + + | Preferred Language | Unknown | + + + | Marital Status | Single | + + + | Scientologist Affiliation | Unknown | + + + | Race | Unknown | + + + | Ethnic Group | Unknown | + + + Author + + + | Author | [facility] | | | and [place] | + + + | Organization | [facility] | | [...] Team Providers + +------+ + | Care Rug Renovator Name | Role | Phone | + [...] | | | | [place] | [phone] | | | | | [address] | | | | | | [phone] | | | +--------+ + + + [...] [place] | | | | | | [address] | | | | | | | [...] MV A Stephen: 1.12 m/s MV Dec [place]: 3.54 m/s2 | | | MV DecT: [...] RV s': 0.16 m/s | | | Steel Box Toe Inserter: WENDY Authenticated by: Santo De La O [...] cmLVPWd: 1.05 | | cmLVOT Area: 4.11 my9SFTM Diam: 2.29 cm%FS: 36.56 %EF(Teich): 66.45 %ESV(Teich): [...] mlLAESV Index (A-L): 29.41 ml/m2LAAs A2C: 18.54 am7KTECA A-L | | A2C: 55.59 mlLALs A2C: 5.24 cmLAAs A4C: 20.75 oy5LRXGS A-L A4C: 77.37 mlLALs | | A4C: 4.72 cmRAAs: 15.78 kj4GKJJO A-L: 37.51 mlRAESV MOD: 37.87 mlRALs: 5.63 | | cmTAPSE: 2.87 cmAV maxP.33 mmHgAV meanP.31 mmHgAV Vmax: 1.35 m/Roberto | | Vmean: 0.85 m/Roberto VTI: 29.14 cmAVA Vmax: 3.33 cm2AVA (VTI): 3.99 gs2ENYD (Vmax): | | 0.00 cm2/m2AVAI (VTI): 0.00 cm2/m2LVOT maxP.79 mmHgLVOT meanP.61 | | mmHgLVSI Dopp: 49.56 ml/m2LVSV Dopp: 116.47 mlLVOT Vmax: 1.09 m/sLVOT Vmean: | | 0.75 m/sLVOT VTI: 28.29 cmMV A Stephen: 1.12 m/sMV Dec [place]: 3.54 m/s2MV DecT: | | 268.22 msMV E Stephen: 0.95 m/sMV E/A Ratio: 0.84MV PHT: 77.78 msMVA By PHT: 2.82 | | fm1Vqgfhy e': 0.05 m/sSeptal E/e': 16.37Lateral e': 0.06 m/sLateral E/e': | | 14.01RAP: 5 mmHgRVSP: 30.32 mmHgTR maxP.32 mmHgTR Vmax: 2.51 m/sRV s': | | 0.16 m/s Steel Box Toe Inserter: DBSAuthenticated by: Santo Soliman Date/Time: 05-02-2019 | [...] A Stephen: 1.12 m/s | |MV Dec [place]: 3.54 m/s2 | |MV DecT: 268.22 ms [...] |RV s': 0.16 m/s | | | |Steel Box Toe Inserter: DBS | |Authenticated by: Santo De La [...]
--- OUTSIDE RECORDS SUMMARY | ~2019-07-13 | XMS | Clinical Summary ---
Demographics + + + | Address | [address] [place] [address] RD | | | [place] [address] | + + + | Home Phone | | + + + | Preferred Language | Unknown | + + + | Marital Status | Single | + + + | Episcopalian Affiliation | Unknown | + + + | Race | Unknown | + + + | Ethnic Group | Unknown | + + + Author + + + | Author | [facility] | | | and [place] | + + + | Organization | [facility] | | | [...] Team Providers + +------+ + | Care Collection Officer Name | Role | Phone | + [...] | | | | | [place] | | | | | | [address] | | | | | | | [...] MV A Stephen: 1.12 m/s MV Dec Emery: 3.54 m/s2 | | | MV DecT: [...] RV s': 0.16 m/s | | | Production Tech: WENDY Authenticated by: Santo De La O Report | | | Date/Time: 05-02-2019 17:39:38 | | + + + + + | Procedure Note | + + | Denny Deleon Conversion - 05/26/2019 1238 PDT Patient Name: Cassy Moreno of : | | 1945 Performing Physician: Santo | | [facility] INDICATIONS------ | | -----HTN, CP CONCLUSIONS 1. [...] cmLVPWd: 1.05 | | cmLVOT Area: 4.11 tj3UHLC Diam: 2.29 cm%FS: 36.56 %EF(Teich): 66.45 %ESV(Teich): [...] mlLAESV Index (A-L): 29.41 ml/m2LAAs A2C: 18.54 vy2UEMHV A-L | | A2C: 55.59 mlLALs A2C: 5.24 cmLAAs A4C: 20.75 lb5XXWBC A-L A4C: 77.37 mlLALs | | A4C: 4.72 cmRAAs: 15.78 mc0VCGFU A-L: 37.51 mlRAESV MOD: 37.87 mlRALs: 5.63 | | cmTAPSE: 2.87 cmAV maxP.33 mmHgAV meanP.31 mmHgAV Vmax: 1.35 m/Roberto | | Vmean: 0.85 m/Roberto VTI: 29.14 cmAVA Vmax: 3.33 cm2AVA (VTI): 3.99 ez9GXXR (Vmax): | | 0.00 cm2/m2AVAI (VTI): 0.00 cm2/m2LVOT maxP.79 mmHgLVOT meanP.61 | | mmHgLVSI Dopp: 49.56 ml/m2LVSV Dopp: 116.47 mlLVOT Vmax: 1.09 m/sLVOT Vmean: | | 0.75 m/sLVOT VTI: 28.29 cmMV A Stephen: 1.12 m/sMV Dec Emery: 3.54 m/s2MV DecT: | | 268.22 msMV E Stephen: 0.95 m/sMV E/A Ratio: 0.84MV PHT: 77.78 msMVA By PHT: 2.82 | | gj6Kftssj e': 0.05 m/sSeptal E/e': 16.37Lateral e': 0.06 m/sLateral E/e': | | 14.01RAP: 5 mmHgRVSP: 30.32 mmHgTR maxP.32 mmHgTR Vmax: 2.51 m/sRV s': | | 0.16 m/s Production Tech: DBSAuthenticated by: Santo [facility] Date/Time: 05-02-2019 | | 17:39:38 IMPRESSION: [...] A Stephen: 1.12 m/s | |MV Dec Emery: 3.54 m/s2 | |MV DecT: 268.22 ms [...] |RV s': 0.16 m/s | | | |Production Tech: DBS | |Authenticated by: Santo De La [...] +--------+ +---------+--------+ | MEDICARE | MEDICA | [id number] | 11/05/19 | [phone] | | Medica | | | RE | | 16-Pre | 5 | | re | | | PART A | | sent | | | | | | AND B | | | | | | + +--------+ +--------+ +---------+--------+ | MEDICARE | MEDICA | [id number] | 11/05/19 | [phone] | | Medica | | | RE | | 16-Pre | 5 | | re | | | PART A | | sent | | | | | | AND B | | | | | | + +--------+ +--------+ +---------+--------+ | [facility] | IHS | [id number] | | | | Indemn | | SERVICE | YELLOW | | 014-Pr | | | ity | | | HAWK | | esent | | | | + +--------+ +--------+ +---------+--------+ | [facility] | IHS | [id number] | 10/05/19 | | | Indemn | [...] Person | Self | [birth year] | [address] | | | al/Fam | | 1946 | [phone] | [place], [place] | | | [place] | | | [address] (Home) | [address] | + +--------+ +--------+ + + | Yefri Moreno | Person | Self | [birth year] | [address] | | | al/Fam | | 1946 | [phone] | [place] | | | [place] | | | [address] (Home) | [address] | + +--------+ +--------+ + + Advance Directives Patient has advance care planning documents on file. For more information, please contact:[facility] [place] [address]
--- OUTSIDE RECORDS SUMMARY | ~2019-07-13 | XMS | Encounter Summary ---
Demographics + + + | Address | [address] [place] [address] RD | | | [place] [address] | + + + | Home Phone | | + + + | Preferred Language | Unknown | + + + | Marital Status | Single | + + + | Rastafari Affiliation | Unknown | + + + | Race | Unknown | + + + | Ethnic Group | Unknown | + + + Author + + + | Author | [employer] (Historical as of | | | 05-21-19) | + + + | Organization | [facility] (Historical as of | | | 05-21-19) [...] Team Providers + +------+ + | Care Management Accounts Manager Name | Role | Phone | [...] | 2019 | Orders | ECHO | MCAT INSTRUCTOR [address] | unspecified type; | | | | | WAY [address] | Chest pain, | | | | | [place] [address] | unspecified type | | | | | [phone] | | | | | | | [...] Yefri Moreno Date of : 1945 | [facility] | | Performing Physician: Santo De La [...] MV A Stephen: 1.12 m/s MV Dec [place]: 3.54 m/s2 | | | MV DecT: [...] RV s': 0.16 m/s | | | Piston Maker: DBS Authenticated by: Santo De [place] O Report | | | Date/Time: 05-02-2019 17:39:38 | | + + + + + | Procedure Note | + + | Pancho, Rad Results In - 05/02/2019 5:40 PM PDT Patient Name: Cassy Moreno of | | : 5Accession: [id number] Physician: Santo | | [place] INDICATIONS------ | [...] cmLVPWd: 1.05 | | cmLVOT Area: 4.11 hp8HMQF Diam: 2.29 cm%FS: 36.56 %EF(Teich): 66.45 %ESV(Teich): [...] mlLAESV Index (A-L): 29.41 ml/m2LAAs A2C: 18.54 rc3MMGKK A-L | | A2C: 55.59 mlLALs A2C: 5.24 cmLAAs A4C: 20.75 fw5TUBGD A-L A4C: 77.37 mlLALs | | A4C: 4.72 cmRAAs: 15.78 yy7MXSWO A-L: 37.51 mlRAESV MOD: 37.87 mlRALs: 5.63 | | cmTAPSE: 2.87 cmAV maxP.33 mmHgAV meanP.31 mmHgAV Vmax: 1.35 m/Roberto | | Vmean: 0.85 m/Roberto VTI: 29.14 cmAVA Vmax: 3.33 cm2AVA (VTI): 3.99 bm8VCQW (Vmax): | | 0.00 cm2/m2AVAI (VTI): 0.00 cm2/m2LVOT maxP.79 mmHgLVOT meanP.61 | | mmHgLVSI Dopp: 49.56 ml/m2LVSV Dopp: 116.47 mlLVOT Vmax: 1.09 m/sLVOT Vmean: | | 0.75 m/sLVOT VTI: 28.29 cmMV A Stephen: 1.12 m/sMV Dec [place]: 3.54 m/s2MV DecT: | | 268.22 msMV E Stephen: 0.95 m/sMV E/A Ratio: 0.84 MV PHT: 77.78 msMVA By PHT: 2.82 | | xz1Elosyl e': 0.05 m/sSeptal E/e': 16.37 Lateral e': [...] A Stephen: 1.12 m/s | |MV Dec [place]: 3.54 m/s2 | |MV DecT: 268.22 ms [...] |RV s': 0.16 m/s | | | |Piston Maker: DBS | |Authenticated by: Santo De La [...] | + + + + + | [facility] | [address] | [place] [address] | | + + + + + in this encounter Visit Diagnoses + + | Diagnosis | + + | Hypertension, unspecified type | + + | Chest pain, unspecified type | + +"
--- OUTSIDE RECORDS SUMMARY | ~2019-07-13 | XMS | Encounter Summary ---
Demographics + + + | Address | [address] [place] [address] RD | | | [place] [address] | + + + | Home Phone | | + + + | Preferred Language | Unknown | + + + | Marital Status | Single | + + + | Holiness Affiliation | Unknown | + + + | Race | Unknown | + + + | Ethnic Group | Unknown | + + + Author + + + | Author | [employer] (Historical as of | | | 05-21-19) | + + + | Organization | [facility] [employer] (Historical as of | | | 05-21-19) [...] Team Providers + +------+ + | Care Driver Messenger Name | Role | Phone | + +------+ + | Dr. Viktor | PCP | Unavailable | + +------+ + Encounter Details +--------+ + + + + | Date | Type | Department | Care Team | Description | +--------+ + + + + | 04/12/ | Documentati | [facility] | Santo De La O, | | | 2019 | on Only | Cardiology David | [address] | | | | | [address] | [address] Noel, | | | | | [place] | [place] [address] | | | | | [address] | [phone] | | | | | [phone] | | | +--------+ + + + [...]
--- OUTSIDE RECORDS SUMMARY | ~2019-07-13 | XMS | Clinical Summary ---
Demographics + + + | Address | [address] [place] [address] RD | | | [place] [address] | + + + | Home Phone | | + + + | Preferred Language | Unknown | + + + | Marital Status | Single | + + + | Jew Affiliation | Unknown | + + + | Race | Unknown | + + + | Ethnic Group | Unknown | + + + Author + + + | Author | [facility] | | | and [place] | + + + | Organization | [facility] | | [...] Team Providers + +------+ + | Care Meter Repairer Name | Role | Phone | + [...] | | | | | [place] | | | | | | [address] | | | | | | | [...] | | cm VICKY Vmax: 3.33 cm2 IVCKY (VTI): 3.99 cm2 AVAI (Vmax): | | | 0.00 cm2/m2 AVAI (VTI): 0.00 cm2/m2 LVOT maxP.79 mmHg | | | LVOT meanP.61 mmHg LVSI Dopp: 49.56 ml/m2 LVSV Dopp: | | | 116.47 ml LVOT Vmax: 1.09 m/s LVOT Vmean: 0.75 m/s LVOT | | | VTI: 28.29 cm MV A Stephen: 1.12 m/s MV Dec [place]: 3.54 m/s2 | | | MV DecT: [...] RV s': 0.16 m/s | | | Pocket Operator: WENDY Authenticated by: Santo De La O Report | | | Date/Time: 05-02-2019 17:39:38 | | + + + + + | Procedure Note | + + | Denny Deleon Conversion - 05/26/2019 1238 PDT Patient Name: Cassy Moreno of : | | 1945 Performing Physician: Santo | | [facility] INDICATIONS------ | | -----HTN, CP CONCLUSIONS [...] cmLVPWd: 1.05 | | cmLVOT Area: 4.11 wj7UFNY Diam: 2.29 cm%FS: 36.56 %EF(Teich): 66.45 %ESV(Teich): [...] mlLAESV Index (A-L): 29.41 ml/m2LAAs A2C: 18.54 iu7MFVGN A-L | | A2C: 55.59 mlLALs A2C: 5.24 cmLAAs A4C: 20.75 ct6SQGUX A-L A4C: 77.37 mlLALs | | A4C: 4.72 cmRAAs: 15.78 ao6SPUDA A-L: 37.51 mlRAESV MOD: 37.87 mlRALs: 5.63 | | cmTAPSE: 2.87 cmAV maxP.33 mmHgAV meanP.31 mmHgAV Vmax: 1.35 m/Roberto | | Vmean: 0.85 m/Roberto VTI: 29.14 cmAVA Vmax: 3.33 cm2AVA (VTI): 3.99 hx6CSZJ (Vmax): | | 0.00 cm2/m2AVAI (VTI): 0.00 cm2/m2LVOT maxP.79 mmHgLVOT meanP.61 | | mmHgLVSI Dopp: 49.56 ml/m2LVSV Dopp: 116.47 mlLVOT Vmax: 1.09 m/sLVOT Vmean: | | 0.75 m/sLVOT VTI: 28.29 cmMV A Stephen: 1.12 m/sMV Dec [place]: 3.54 m/s2MV DecT: | | 268.22 msMV E Stephen: 0.95 m/sMV E/A Ratio: 0.84MV PHT: 77.78 msMVA By PHT: 2.82 | | jm8Qkupst e': 0.05 m/sSeptal E/e': 16.37Lateral e': 0.06 m/sLateral E/e': | | 14.01RAP: 5 mmHgRVSP: 30.32 mmHgTR maxP.32 mmHgTR Vmax: 2.51 m/sRV s': | | 0.16 m/s Pocket Operator: DBSAuthenticated by: Santo [facility] Date/Time: 05-02-2019 | | 17:39:38 IMPRESSION: 1. [...] A Stephen: 1.12 m/s | |MV Dec [place]: 3.54 m/s2 | |MV DecT: 268.22 ms [...] |RV s': 0.16 m/s | | | |Pocket Operator: DBS | |Authenticated by: Santo De La [...] +--------+ +---------+--------+ | MEDICARE | MEDICA | [id number] | 11/05/19 | [phone] | | Medica | | | RE | | 16-Pre | 5 | | re | | | PART A | | sent | | | | | | AND B | | | | | | + +--------+ +--------+ +---------+--------+ | MEDICARE | MEDICA | [id number] | 11/05/19 | [phone] | | Medica | | | RE | | 16-Pre | 5 | | re | | | PART A | | sent | | | | | | AND B | | | | | | + +--------+ +--------+ +---------+--------+ | [facility] | IHS | [id number] | | | | Indemn | | SERVICE | YELLOW | | 014-Pr | | | ity | | | HAWK | | esent | | | | + +--------+ +--------+ +---------+--------+ | [facility] | [facility] | [id number] | 10/05/19 | | | Indemn | [...] Person | Self | [birth year] | [address] | | | al/Fam | | 1946 | [phone] | [place], [place] | | | [place] | | | 8 (Home) | [address] | + +--------+ +--------+ + + | Yefri Moreno | Person | Self [birth year] | [address] | | | al/Fam | | 1946 | [phone] | [place] | | | [place] | | | [address] (Home) | [address] | + +--------+ +--------+ + + Advance Directives Patient has advance care planning documents on file. For more information, please contact:[facility] and [facility] [address]
--- OUTSIDE RECORDS SUMMARY | ~2019-07-13 | XMS | Encounter Summary ---
Demographics + + + | Address | [address] [place] [address] RD | | | [place] [address] | + + + | Home Phone | | + + + | Preferred Language | Unknown | + + + | Marital Status | Single | + + + | Amish Affiliation | Unknown | + + + | Race | Unknown | + + + | Ethnic Group | Unknown | + + + Author + + + | Author | [employer] (Historical as of | | | 05-21-19) | + + + | Organization | [facility] (Historical as of | | | 05-21-19) [...] Team Providers + +------+ + | Care Pinion And Wheel Truer Name | Role | Phone | + [...] | | | [place] | [place] [address] | | | | | [address] | [phone] | | | | | [phone] | | | +--------+ + + + [...]
--- OUTSIDE RECORDS SUMMARY | ~2019-07-13 | XMS | Clinical Summary ---
Demographics + + + | Address | [address] [place] [address] [address] | | | [place] [address] | + + + | Home Phone | | + + + | Preferred Language | Unknown | + + + | Marital Status | Single | + + + | Restorationism Affiliation | Unknown | + + + | Race | Unknown | + + + | Ethnic Group | Unknown | + + + Author + + + | Author | [facility] (Historical as of | | | 05-21-19) | + + + | Organization | [facility] (Historical as of | | | 05-21-19) [...] Team Providers + +------+ + | Care Die Cutter Apprentice Name | Role | Phone | + [...] | | 2019 | Procedure | | LIQUOR ESTABLISHMENT MANAGER | unspecified type; | | | | | | Chest pain, | | | | | | unspecified type | +--------+ + + + + | 05/02/ | Ancillary | | Elidia Gray, | Hypertension, | | 2019 | Orders | | LIQUOR ESTABLISHMENT MANAGER | unspecified type; | | | | [...] | + + + | Patient Name: Ptaricio Vivas Date of : 1945 | [facility] | | Performing Physician: Santo De [...] | | VTI: 28.29 cm MV A Steh[place]: 1.12 m/s MV Dec [place]: 3.54 m/s2 | | | MV DecT: [...] RV s': 0.16 m/s | | | Artificial Insemination Technician: WENDY Authenticated by: Santo De La O Report | | | Date/Time: 05-02-2019 17:39:38 | | + + + + + | Procedure Note | + + | Denny Deleon Results In 05/02/2019 5:40 PM PDT Patient Name: Cassy Vivas of | | : 5Accession: [id number] Physician: Santo | | Jairon INDICATIONS------ | [...] cmLVPWd: 1.05 | | cmLVOT Area: 4.11 [id number] Diam: 2.29 cm%FS: 36.56 %EF(Teich): 66.45 %ESV(Teich): [...] mlLAESV Index (A-L): 29.41 ml/m2LAAs A2C: 18.54 [id number] A-L | | A2C: 55.59 mlLALs A2C: 5.24 cmLAAs A4C: 20.75 [id number] A-L A4C: 77.37 mlLALs | | A4C: 4.72 cmRAAs: 15.78 [id number] A-L: 37.51 mlRAESV MOD: 37.87 mlRALs: 5.63 | | cmTAPSE: 2.87 cmAV maxP.33 mmHgAV meanP.31 mmHgAV Vmax: 1.35 m/Roberto | | Vmean: 0.85 m/Roberto VTI: 29.14 cmAVA Vmax: 3.33 cm2AVA (VTI): 3.99 tc0RTGY (Vmax): | | 0.00 cm2/m2AVAI (VTI): 0.00 cm2/m2LVOT maxP.79 mmHgLVOT meanP.61 | | mmHgLVSI Dopp: 49.56 ml/m2LVSV Dopp: 116.47 mlLVOT Vmax: 1.09 m/sLVOT Vmean: | | 0.75 m/sLVOT VTI: 28.29 cmMV A Stephen: 1.12 m/sMV Dec [place]: 3.54 m/s2MV DecT: | | 268.22 msMV E Stephen: 0.95 m/sMV E/A Ratio: 0.84 MV PHT: 77.78 msMVA By PHT: 2.82 | | [id number] e': 0.05 m/sSeptal E/e': 16.37 Lateral e': 0.06 m/sLateral E/e': 14.01 | | RAP: 5 mmHgRVSP: 30.32 mmHgTR maxP.32 mmHgTR Vmax: 2.51 m/sRV s': 0.16 | | m/sSonographer: DBSAuthenticated by: [facility]anto [facility] Date/Time: 05-02-2019 | | 17:39:38IMPRESSION:1. Overall left [...] A Stephen: 1.12 m/s | |MV Dec [place]: 3.54 m/s2 | |MV DecT: 268.22 ms [...] |RV s': 0.16 m/s | | | |Artificial Insemination Technician: DBS | |Authenticated by: Santo De La [...] | [address] | [place] [address] | | + + + + + [...] +------+-------+ + | MEDICARE | MEDICA | [id number] | | | [address] | | | RE | | | | [place] [phone] | | | IP-OP | | | | | + +--------+ +------+-------+ + | [facility] | YELLOW | [id number] | | | | | PLANS | [...] | Self [birth year] Home: | [address] | | | al/Fam | | 1946 | [phone] [place] | | | [place] | | | [phone] | + +--------+ +--------+ + +"
--- OUTSIDE RECORDS SUMMARY | ~2019-07-13 | XMS | Encounter Summary ---
Demographics + + + | Address | [address] [place] [address] RD | | | [place] [address] | + + + | Home Phone | | + + + | Preferred Language | Unknown | + + + | Marital Status | Single | + + + | Hoahaoism Affiliation | Unknown | + + + | Race | Unknown | + + + | Ethnic Group | Unknown | + + + Author + + + | Author | [employer] (Historical as of | | | 05-21-19) | + + + | Organization | [facility] [employer] (Historical as of | | | 05-21-19) [...] Team Providers + +------+ + | Care Center Line Cutter Operator Name | Role | Phone | [...] | 2019 | Orders | ECHO | [address] | unspecified type; | | | | | [address] | Chest pain, | | | | | [place] [address] | unspecified type | | | | | [phone] | | | | | | | [...] Yefri Moreno Date of : 1945 | [facility] | | Performing Physician: Santo De [...] MV A Stephen: 1.12 m/s MV Dec [place]: 3.54 m/s2 | | | MV DecT: [...] RV s': 0.16 m/s | | | Chief Quality Officer: DBS Authenticated by: Santo De La O Report | | | Date/Time: 05-02-2019 17:39:38 | | + + + + + | Procedure Note | + + | Pancho, Rad Results In - 05/02/2019 5:40 PM PDT Patient Name: Cassy Moreno of | | : 5Accession: [id number] Physician: Santo | | Alsamara INDICATIONS------ | [...] cmLVPWd: 1.05 | | cmLVOT Area: 4.11 gc2PGRK Diam: 2.29 cm%FS: 36.56 %EF(Teich): 66.45 %ESV(Teich): [...] mlLAESV Index (A-L): 29.41 ml/m2LAAs A2C: 18.54 rb4WIAKC A-L | | A2C: 55.59 mlLALs A2C: 5.24 cmLAAs A4C: 20.75 fq9ZHKNE A-L A4C: 77.37 mlLALs | | A4C: 4.72 cmRAAs: 15.78 mv8IMYPD A-L: 37.51 mlRAESV MOD: 37.87 mlRALs: 5.63 | | cmTAPSE: 2.87 cmAV maxP.33 mmHgAV meanP.31 mmHgAV Vmax: 1.35 m/Roberto | | Vmean: 0.85 m/Roberto VTI: 29.14 cmAVA Vmax: 3.33 cm2AVA (VTI): 3.99 bk6QCNT (Vmax): | | 0.00 cm2/m2AVAI (VTI): 0.00 cm2/m2LVOT maxP.79 mmHgLVOT meanP.61 | | mmHgLVSI Dopp: 49.56 ml/m2LVSV Dopp: 116.47 mlLVOT Vmax: 1.09 m/sLVOT Vmean: | | 0.75 m/sLVOT VTI: 28.29 cmMV A Stephen: 1.12 m/sMV Dec [place]: 3.54 m/s2MV DecT: | | 268.22 msMV E Stephen: 0.95 m/sMV E/A Ratio: 0.84 MV PHT: 77.78 msMVA By PHT: 2.82 | | cw3Rgxdpi e': 0.05 m/sSeptal E/e': 16.37 Lateral e': [...] A Stephen: 1.12 m/s | |MV Dec [place]: 3.54 m/s2 | |MV DecT: 268.22 ms [...] |RV s': 0.16 m/s | | | |Chief Quality Officer: DBS | |Authenticated by: Santo De La [...] | + + + + + | [facility] | [address] | [place] [address] | | + + + + + in this encounter Visit Diagnoses + + | Diagnosis | + + | Hypertension, unspecified type | + + | Chest pain, unspecified type | + +"
--- OUTSIDE RECORDS SUMMARY | ~2019-07-13 | XMS | Encounter Summary ---
Demographics + + + | Address | [address] [place] [address] RD | | | [place] [address] | + + + | Home Phone | | + + + | Preferred Language | Unknown | + + + | Marital Status | Single | + + + | Judaism Affiliation | Unknown | + + + | Race | Unknown | + + + | Ethnic Group | Unknown | + + + Author + + + | Author | [employer] (Historical as of | | | 05-21-19) | + + + | Organization | [facility] [employer] (Historical as of | | | 05-21-19) [...] Team Providers + +------+ + | Care Abrasive Mixer Name | Role | Phone | + [...] | | | [place] | [place] [address] | | | | | [address] | [phone] | | | | | [phone] | | | +--------+ + + + [...]
--- OUTSIDE RECORDS SUMMARY | ~2019-07-13 | XMS | Encounter Summary ---
Demographics + + + | Address | [address] [place] [address] RD | | | [place] [address] | + + + | Home Phone | | + + + | Preferred Language | Unknown | + + + | Marital Status | Single | + + + | Holiness Affiliation | Unknown | + + + | Race | Unknown | + + + | Ethnic Group | Unknown | + + + Author + + + | Author | [employer] (Historical as of | | | 05-21-19) | + + + | Organization | [facility] [employer] (Historical as of | | | 05-21-19) [...] Team Providers + +------+ + | Care Radiation Physicist Name | Role | Phone | + [...] | | | [place] | [place] [address] | | | | | [address] | [phone] | | | | | [phone] | | | +--------+ + + + [...]
== END 2019-07-14 00:21 | disposition home or self-care (01) ==
LOC: ED 22:23
DX: S76.012A Strain of muscle, fascia and tendon of left hip, initial encounter (principal); S90.512A Abrasion, left ankle, initial encounter; I10 Essential (primary) hypertension; E11.9 Type 2 diabetes mellitus without complications; Z88.0 Allergy status to penicillin; Z88.1 Allergy status to other antibiotic agents; Z88.8 Allergy status to other drugs, medicaments and biological substances; Z79.4 Long term (current) use of insulin; Z79.899 Other long term (current) drug therapy; Z79.82 Long term (current) use of aspirin; X50.1XXA Overexertion from prolonged static or awkward postures, initial encounter
CPT/HCPCS: 73502; 99283-25

== ENCOUNTER 2019-07-17 20:53 | Emergency (ER) | payer MEDICARE, OTHER ==
[~2019-07-17] VITALS: Ht 190.5 cm; Wt 111.1 kg
--- OUTSIDE RECORDS SUMMARY | ~2019-07-17 | XMS | Encounter Summary ---
Demographics + + + | Address | [address] [place] [address] RD | | | [place] [address] | + + + | Home Phone | | + + + | Preferred Language | Unknown | + + + | Marital Status | Single | + + + | Catholic Affiliation | Unknown | + + + | Race | Unknown | + + + | Ethnic Group | Unknown | + + + Author + + + | Author | [employer] (Historical as of | | | 05-21-19) | + + + | Organization | [facility] [employer] (Historical as of | | | 05-21-19) [...] Team Providers + +------+ + | Care Medical Billing And Coding Instructor Name | Role | Phone | + +------+ + | Dr. Viktor | PCP | Unavailable | + +------+ + Encounter Details +--------+ + + + + | Date | Type | Department | Care Team | Description | +--------+ + + + + | 05/10/ | Documentati | [facility] | Santo De La O, | | | 2019 | on Only | Cardiology David | [address] | | | | | [address] | Dr Noel, | | | | | [place] | [place] [address] | | | | | [address] | [phone] | | | | | [phone] | | | +--------+ + + + + Social History + +-------+ [...] on file | | + + + as of this encounter Plan of Treatment Not on fileas of this encounter Visit Diagnoses Not on filein this encounter"
--- OUTSIDE RECORDS SUMMARY | ~2019-07-17 | XMS | Encounter Summary ---
Demographics + + + | Address | [address] [place] [address] RD | | | [place] [address] | + + + | Home Phone | | + + + | Preferred Language | Unknown | + + + | Marital Status | Single | + + + | Adventism Affiliation | Unknown | + + + | Race | Unknown | + + + | Ethnic Group | Unknown | + + + Author + + + | Author | [employer] (Historical as of | | | 05-21-19) | + + + | Organization | [facility] [employer] (Historical as of | | | 05-21-19) [...] Team Providers + +------+ + | Care Funeral Director Name | Role | Phone | + [...] | 2019 | Procedure | ECHO | [address] | unspecified type; | | | | | WAY [address] | Chest pain, | | | | | [place] [address] | unspecified type | | | | | [phone] | | | | | | | [...] Yefri Moreno Date of : 1945 | [facility] | | Performing Physician: Santo [...] MV A Stephen: 1.12 m/s MV Dec Chambers: 3.54 m/s2 | | | MV DecT: [...] RV s': 0.16 m/s | | | Coil Winding Machines Set Up Mechanic: WENDY Authenticated by: Santo Kinglowell Report | | | Date/Time: 05-02-2019 17:39:38 | | + + + + + | Procedure Note | + + | Pancho, Rad Results In - 05/02/2019 5:40 PM PDT Patient Name: Cassy Moreno of | | : 5Accession: [id number] Physician: Santo | | Alsamara INDICATIONS------ | [...] cmLVPWd: 1.05 | | cmLVOT Area: 4.11 op5SMMR Diam: 2.29 cm%FS: 36.56 %EF(Teich): 66.45 %ESV(Teich): [...] mlLAESV Index (A-L): 29.41 ml/m2LAAs A2C: 18.54 zh4DGXKX A-L | | A2C: 55.59 mlLALs A2C: 5.24 cmLAAs A4C: 20.75 yk7HAPPD A-L A4C: 77.37 mlLALs | | A4C: 4.72 cmRAAs: 15.78 ay7ZTQKU A-L: 37.51 mlRAESV MOD: 37.87 mlRALs: 5.63 | | cmTAPSE: 2.87 cmAV maxP.33 mmHgAV meanP.31 mmHgAV Vmax: 1.35 m/Roberto | | Vmean: 0.85 m/Roberto VTI: 29.14 cmAVA Vmax: 3.33 cm2AVA (VTI): 3.99 db7IXBL (Vmax): | | 0.00 cm2/m2AVAI (VTI): 0.00 cm2/m2LVOT maxP.79 mmHgLVOT meanP.61 | | mmHgLVSI Dopp: 49.56 ml/m2LVSV Dopp: 116.47 mlLVOT Vmax: 1.09 m/sLVOT Vmean: | | 0.75 m/sLVOT VTI: 28.29 cmMV A Stephen: 1.12 m/sMV Dec [place]: 3.54 m/s2MV DecT: | | 268.22 msMV E Stephen: 0.95 m/sMV E/A Ratio: 0.84 MV PHT: 77.78 msMVA By PHT: 2.82 | | ku4Erjzzo e': 0.05 m/sSeptal E/e': 16.37 Lateral e': 0.06 m/sLateral E/e': 14.01 | | RAP: 5 mmHgRVSP: 30.32 mmHgTR maxP.32 mmHgTR Vmax: 2.51 m/sRV s': 0.16 | | m/sSonographer: DBSAuthenticated by: Santo [facility] Date/Time: 05-02-2019 | | 17:39:38IMPRESSION:1. Overall left [...] A Stephen: 1.12 m/s | |MV Dec [place]: 3.54 m/s2 | |MV DecT: 268.22 ms [...] |RV s': 0.16 m/s | | | |Coil Winding Machines Set Up Mechanic: DBS | |Authenticated by: Santo De La [...] | + + + + + | [facility] | [address] | [place] [address] | | + + + + + in this encounter Visit Diagnoses + + | Diagnosis | + + | Hypertension, unspecified type | + + | Chest pain, unspecified type | + +"
--- OUTSIDE RECORDS SUMMARY | ~2019-07-17 | XMS | Encounter Summary ---
Demographics + + + | Address | [id number] [place] [address] RD | | | [place] [address] | + + + | Home Phone | | + + + | Preferred Language | Unknown | + + + | Marital Status | Single | + + + | Holiness Affiliation | Unknown | + + + | Race | Unknown | + + + | Ethnic Group | Unknown | + + + Author + + + | Author | [employer] (Historical as of | | | 05-21-19) | + + + | Organization | [facility] [employer] (Historical as of | | | 05-21-19) [...] Team Providers + +------+ + | Care Technical Support Manager Name | Role | Phone | + [...] Hypertension, | | 2019 | Orders | ECHO | [address] | unspecified type; | | | | | WAY [address] | Chest pain, | | | | | [place] [address] | unspecified type | | | | | [phone] | | | | | | | [...] Treatment Not on fileas of this encounter Results ECHO outside interpretation standard [...] Yefri Moreno Date of : 1945 | [facility] | | Performing Physician: Santo De [...] MV A Stephen: 1.12 m/s MV Dec [place]: 3.54 m/s2 | | | MV DecT: [...] RV s': 0.16 m/s | | | Preparation Supervisor Canning: DBS Authenticated by: Santo De La O Report | | | Date/Time: 05-02-2019 17:39:38 | | + + + + + | Procedure Note | + + | Pancho, Rad Results In - 05/02/2019 5:40 PM PDT Patient Name: Cassy Moreno of | | : 5Accession: [id number] Physician: Santo | | Alsamara INDICATIONS------ | [...] cmLVPWd: 1.05 | | cmLVOT Area: 4.11 hp1KXCP Diam: 2.29 cm%FS: 36.56 %EF(Teich): 66.45 %ESV(Teich): [...] mlLAESV Index (A-L): 29.41 ml/m2LAAs A2C: 18.54 ji4LPAUJ A-L | | A2C: 55.59 mlLALs A2C: 5.24 cmLAAs A4C: 20.75 jx5RRAQR A-L A4C: 77.37 mlLALs | | A4C: 4.72 cmRAAs: 15.78 dr8SKDOK A-L: 37.51 mlRAESV MOD: 37.87 mlRALs: 5.63 | | cmTAPSE: 2.87 cmAV maxP.33 mmHgAV meanP.31 mmHgAV Vmax: 1.35 m/Roberto | | Vmean: 0.85 m/Roberto VTI: 29.14 cmAVA Vmax: 3.33 cm2AVA (VTI): 3.99 hy0ZIHE (Vmax): | | 0.00 cm2/m2AVAI (VTI): 0.00 cm2/m2LVOT maxP.79 mmHgLVOT meanP.61 | | mmHgLVSI Dopp: 49.56 ml/m2LVSV Dopp: 116.47 mlLVOT Vmax: 1.09 m/sLVOT Vmean: | | 0.75 m/sLVOT VTI: 28.29 cmMV A Stephen: 1.12 m/sMV Dec [place]: 3.54 m/s2MV DecT: | | 268.22 msMV E Stephen: 0.95 m/sMV E/A Ratio: 0.84 MV PHT: 77.78 msMVA By PHT: 2.82 | | qa6Helauh e': 0.05 m/sSeptal E/e': 16.37 Lateral e': 0.06 m/sLateral E/e': 14.01 | | RAP: 5 mmHgRVSP: 30.32 mmHgTR maxP.32 mmHgTR Vmax: 2.51 m/sRV s': 0.16 | | m/sSonographer: DBSAuthenticated by: Santo De La OReport Date/Time: 05-02-2019 | | 17:39:38IMPRESSION:1. Overall left [...] A Stephen: 1.12 m/s | |MV Dec [place]: 3.54 m/s2 | |MV DecT: 268.22 ms [...] |RV s': 0.16 m/s | | | |Preparation Supervisor Canning: DBS | |Authenticated by: Santo De La [...] | + + + + + | [facility] | [address] | [place] [address] | | + + + + + in this encounter Visit Diagnoses + + | Diagnosis | + + | Hypertension, unspecified type | + + | Chest pain, unspecified type | + +"
--- OUTSIDE RECORDS SUMMARY | ~2019-07-17 | XMS | Clinical Summary ---
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 | | Performing Physician: Santo De [...] MV A Stephen: 1.12 m/s MV Dec [place]: 3.54 m/s2 | | | MV DecT: [...] RV s': 0.16 m/s | | | Car Repairer: DBS Authenticated by: Santo De La O Report | | | Date/Time: 05-02-2019 17:39:38 | | + + + + + | Procedure Note | + + | Pancho, Rad Results In - 05/02/2019 5:40 PM PDT Patient Name: Cassy Vivas of | | : 5Accession: [id number] Physician: Santo | | Christineamara INDICATIONS------ | | -----HTN, CPCONCLUSIONS 1. Overall [...] cmLVPWd: 1.05 | | cmLVOT Area: 4.11 ws6ABAR Diam: 2.29 cm%FS: 36.56 %EF(Teich): 66.45 %ESV(Teich): [...] mlLAESV Index (A-L): 29.41 ml/m2LAAs A2C: 18.54 ka2AYVQM A-L | | A2C: 55.59 mlLALs A2C: 5.24 cmLAAs A4C: 20.75 px1QVAOG A-L A4C: 77.37 mlLALs | | A4C: 4.72 cmRAAs: 15.78 lh7JDLOG A-L: 37.51 mlRAESV MOD: 37.87 mlRALs: 5.63 | | cmTAPSE: 2.87 cmAV maxP.33 mmHgAV meanP.31 mmHgAV Vmax: 1.35 m/Roberto | | Vmean: 0.85 m/Roberto VTI: 29.14 cmAVA Vmax: 3.33 cm2AVA (VTI): 3.99 fv3BQWF (Vmax): | | 0.00 cm2/m2AVAI (VTI): 0.00 cm2/m2LVOT maxP.79 mmHgLVOT meanP.61 | | mmHgLVSI Dopp: 49.56 ml/m2LVSV Dopp: 116.47 mlLVOT Vmax: 1.09 m/sLVOT Vmean: | | 0.75 m/sLVOT VTI: 28.29 cmMV A Stephen: 1.12 m/sMV Dec [place]: 3.54 m/s2MV DecT: | | 268.22 msMV E Stephen: 0.95 m/sMV E/A Ratio: 0.84 MV PHT: 77.78 msMVA By PHT: 2.82 | | ez2Piyrck e': 0.05 m/sSeptal E/e': 16.37 Lateral e': [...] A Stephen: 1.12 m/s | |MV Dec [place]: 3.54 m/s2 | |MV DecT: 268.22 ms [...] |RV s': 0.16 m/s | | | |Car Repairer: WENDY | |Authenticated by: Santo Christinemariajose | |Report Date/Time: 05-02-2019 17:39:38 | | [...] | + + + + + | [facility] | [address] | [place] [address] | | + + + + + [...] +------+-------+ + | MEDICARE | MEDICA | [id number] | | | [address] | | | RE | | | | [place] [address] | | | IP-OP | | | | | + +--------+ +------+-------+ + | [employer] | YELLOW | [id number] | | | | | PLANS | [...] | Self [birth year] Home: | [address] | | | al/Fam | | 1946 | [phone] | [place] | | | [address] | | | [address] | [address] | + +--------+ +--------+ + +"
--- OUTSIDE RECORDS SUMMARY | ~2019-07-17 | XMS | Encounter Summary ---
Demographics + + + | Address | [address] [place] [address] RD | | | [place] [address] | + + + | Home Phone | | + + + | Preferred Language | Unknown | + + + | Marital Status | Single | + + + | Mandaeism Affiliation | Unknown | + + + | Race | Unknown | + + + | Ethnic Group | Unknown | + + + Author + + + | Author | [facility] | | | and [place] | + + + | Organization | [facility] | | | [...] Team Providers + +------+ + | Care Maintenance Department Manager Name | Role | Phone | [...] | | | | [place] | [phone] | | | | | [address] | | | | | | [phone] | | | +--------+ + + + [...] [place] | | | | | | [address] | | | | | | | [...] MV A Stephen: 1.12 m/s MV Dec [place]: 3.54 m/s2 | | | MV DecT: [...] RV s': 0.16 m/s | | | Headwaiter/Headwaitress: WENDY Authenticated by: Santo De La O [...] cmLVPWd: 1.05 | | cmLVOT Area: 4.11 cc1ETPO Diam: 2.29 cm%FS: 36.56 %EF(Teich): 66.45 %ESV(Teich): [...] mlLAESV Index (A-L): 29.41 ml/m2LAAs A2C: 18.54 lq7ODSSK A-L | | A2C: 55.59 mlLALs A2C: 5.24 cmLAAs A4C: 20.75 cz5AGWQY A-L A4C: 77.37 mlLALs | | A4C: 4.72 cmRAAs: 15.78 dx3FXMLT A-L: 37.51 mlRAESV MOD: 37.87 mlRALs: 5.63 | | cmTAPSE: 2.87 cmAV maxP.33 mmHgAV meanP.31 mmHgAV Vmax: 1.35 m/Roberto | | Vmean: 0.85 m/Roberto VTI: 29.14 cmAVA Vmax: 3.33 cm2AVA (VTI): 3.99 vt7ITKK (Vmax): | | 0.00 cm2/m2AVAI (VTI): 0.00 cm2/m2LVOT maxP.79 mmHgLVOT meanP.61 | | mmHgLVSI Dopp: 49.56 ml/m2LVSV Dopp: 116.47 mlLVOT Vmax: 1.09 m/sLVOT Vmean: | | 0.75 m/sLVOT VTI: 28.29 cmMV A Stephen: 1.12 m/sMV Dec [place]: 3.54 m/s2MV DecT: | | 268.22 msMV E Stephen: 0.95 m/sMV E/A Ratio: 0.84MV PHT: 77.78 msMVA By PHT: 2.82 | | ag3Bfhhyq e': 0.05 m/sSeptal E/e': 16.37Lateral e': 0.06 m/sLateral E/e': | | 14.01RAP: 5 mmHgRVSP: 30.32 mmHgTR maxP.32 mmHgTR Vmax: 2.51 m/sRV s': | | 0.16 m/s Headwaiter/Headwaitress: DBSAuthenticated by: Santo Soliman Date/Time: 05-02-2019 | [...] A Stephen: 1.12 m/s | |MV Dec [place]: 3.54 m/s2 | |MV DecT: 268.22 ms [...] |RV s': 0.16 m/s | | | |Headwaiter/Headwaitress: DBS | |Authenticated by: Santo De La [...]
--- OUTSIDE RECORDS SUMMARY | ~2019-07-17 | XMS | Clinical Summary ---
Demographics + + + | Address | [address] [place] [address] RD | | | [place] [address] | + + + | Home Phone | | + + + | Preferred Language | Unknown | + + + | Marital Status | Single | + + + | Church Affiliation | Unknown | + + + | Race | Unknown | + + + | Ethnic Group | Unknown | + + + Author + + + | Author | [facility] | | | and [place] | + + + | Organization | [facility] | | | and [...] Team Providers + +------+ + | Care It Risk And Assurance Senior Manager Name | Role | Phone | [...] + + + +---------+------+------+-------+ | | Take 5 mLs by mouth | | 0 | | | Activ | | guaiFENesin-dextrome | 3 times daily as | | | | | e | | thorphan (ROBITUSSIN | needed for Cough. | | | | | | | DM) 100-10 mg/5 mL | | | | | | | | syrup | | | | | | | [...] | | | e | | N (ALYSSIAEaston) 50-1000 | (with breakfast & | | | | | | | MG per tablet | dinner). | | | | | | + + + +---------+------+------+-------+ | tadalafil (CIALIS) | Take 20 mg by mouth | | 0 | | | Activ | | 20 MG tablet | as needed for | | | | | e | | | Erectile | | | | | | | | Dysfunction. | | | | | | + [...] | 10/01/2017 | + + + Encounters +--------+ + + + + | Date | Type | Specialty | Care Team | Description | +--------+ + + + + | 05/02/ | Orders Only | | Conversion | | | 2019 | | | Transaction, | | | | | | Provider Unknown | | +--------+ + + + + [...] Filed Vital Signs + + + + | Vital Sign | Reading | Time Taken | + + + + | Blood Pressure | 203/93 | 10/01/201749 PST | + + + + | Pulse | 62 | 10/01/2017 1322 PST | + + + + | Temperature | 1 C (33.8 F) | 10/01/2017748 PST | + + + + | Respiratory Rate | 16 | 10/01/20171321 PST | + + + + | Oxygen Saturation | 96% | 10/01/20171321 PST | + + + + | Inhaled Oxygen | - | - | | Concentration | | | + + + + | Weight | 112.9 kg (249 lb) | 10/01/20171321 PST | + + + + | Height | 185.4 cm (6' 1") | 10/01/20171321 PST | + + + + | Body Mass Index | 32.85 | 10/01/20171321 PST | + + + + Plan of Treatment +--------+---------+ + + + | Date | Type | Specialty | Care Team | Description | +--------+---------+ + + + | 07/28/ | Office | Cardiology | Charlotte Lobato DO | | | 2019 | Visit | | [address] | | | | | | [place] | | | | | | [address] | | | | | | | [...] + from Last 3 Months Results ECHO Interpretation of Outside Films (05/02/2019 [...] MV A Stephen: 1.12 m/s MV Dec [place]: 3.54 m/s2 | | | MV DecT: [...] RV s': 0.16 m/s | | | Costume Specialist: WENDY Authenticated by: Santo De La O Report | | | Date/Time: 05-02-2019 17:39:38 | | + + + + + | Procedure Note | + + | Denny Deleon Conversion - 05/26/2019 1238 PDT Patient Name: Cassy Moreno of : | | 1945 Performing Physician: Santo | | [facility] INDICATIONS------ | | -----HTN, CP CONCLUSIONS 1. [...] cmLVPWd: 1.05 | | cmLVOT Area: 4.11 ou8JORL Diam: 2.29 cm%FS: 36.56 %EF(Teich): 66.45 %ESV(Teich): [...] mlLAESV Index (A-L): 29.41 ml/m2LAAs A2C: 18.54 sq2IKWIL A-L | | A2C: 55.59 mlLALs A2C: 5.24 cmLAAs A4C: 20.75 yy5ACDGR A-L A4C: 77.37 mlLALs | | A4C: 4.72 cmRAAs: 15.78 ec8HYFID A-L: 37.51 mlRAESV MOD: 37.87 mlRALs: 5.63 | | cmTAPSE: 2.87 cmAV maxP.33 mmHgAV meanP.31 mmHgAV Vmax: 1.35 m/Roberto | | Vmean: 0.85 m/Roberto VTI: 29.14 cmAVA Vmax: 3.33 cm2AVA (VTI): 3.99 wn6OKKF (Vmax): | | 0.00 cm2/m2AVAI (VTI): 0.00 cm2/m2LVOT maxP.79 mmHgLVOT meanP.61 | | mmHgLVSI Dopp: 49.56 ml/m2LVSV Dopp: 116.47 mlLVOT Vmax: 1.09 m/sLVOT Vmean: | | 0.75 m/sLVOT VTI: 28.29 cmMV A Stephen: 1.12 m/sMV Dec [place]: 3.54 m/s2MV DecT: | | 268.22 msMV E Stephen: 0.95 m/sMV E/A Ratio: 0.84MV PHT: 77.78 msMVA By PHT: 2.82 | | op8Uwmbsf e': 0.05 m/sSeptal E/e': 16.37Lateral e': 0.06 m/sLateral E/e': | | 14.01RAP: 5 mmHgRVSP: 30.32 mmHgTR maxP.32 mmHgTR Vmax: 2.51 m/sRV s': | | 0.16 m/s Costume Specialist: DBSAuthenticated by: Santo [facility] Date/Time: 05-02-2019 | | 17:39:38 IMPRESSION: 1. [...] A Stephen: 1.12 m/s | |MV Dec [place]: 3.54 m/s2 | |MV DecT: 268.22 ms [...] |RV s': 0.16 m/s | | | |Costume Specialist: DBS | |Authenticated by: Santo De La [...] is no pericardial effusion. | + + from Last 3 Months Insurance [...] +--------+ +---------+--------+ | MEDICARE | MEDICA | [id number] | 11/05/19 | [phone] | | Medica | | | RE | | 16-Pre | 5 | | re | | | PART A | | sent | | | | | | AND B | | | | | | + +--------+ +--------+ +---------+--------+ | MEDICARE | MEDICA | [id number] | 11/05/19 | [phone] | | Medica | | | RE | | 16-Pre | 5 | | re | | | PART A | | sent | | | | | | AND B | | | | | | + +--------+ +--------+ +---------+--------+ | [facility] | IHS | [id number] | | | | Indemn | | SERVICE | YELLOW | | 014-Pr | | | ity | | | HAWK | | esent | | | | + +--------+ +--------+ +---------+--------+ | [facility] | IHS | [id number] | 10/05/19 | | | Indemn | [...] +--------+ +--------+ + + | Yefri Moreno S | Person | Self [birth year] | [address] | | | al/Fam | | 1946 | [phone] | [place], [place] | | | [place] | | | 8 (Home) | [address] | + +--------+ +--------+ + + | Yefri Moreno | Person | Self | [birth year] | | [address] | | | al/Fam | | 1946 | [phone] | [place] | | | [place] | | | 8 (Home) | [address] | + +--------+ +--------+ + + Advance Directives Patient has advance care planning documents on file. For more information, please contact:[facility] [place] [address]
--- OUTSIDE RECORDS SUMMARY | ~2019-07-17 | XMS | Clinical Summary ---
Demographics + + + | Address | [address] [place] [address] RD | | | [place] [address] | + + + | Home Phone | | + + + | Preferred Language | Unknown | + + + | Marital Status | Single | + + + | Uatsdin Affiliation | Unknown | + + + | Race | Unknown | + + + | Ethnic Group | Unknown | + + + Author + + + | Author | [facility] | | | and [place] | + + + | Organization | [facility] | | | [...] Team Providers + +------+ + | Care Supervisor Plate Forming Name | Role | Phone | + [...] | | | | | [place] | | | | | | [address] | | | | | | | [...] MV A Stephen: 1.12 m/s MV Dec [place]: 3.54 m/s2 | | | MV DecT: [...] RV s': 0.16 m/s | | | Soda Dispenser: WENDY Authenticated by: Santo De La O Report | | | Date/Time: 05-02-2019 17:39:38 | | + + + + + | Procedure Note | + + | Denny Deleon Conversion - 05/26/2019 1238 PDT Patient Name: Cassy Moreno of : | | 1945 Performing Physician: Santo | | [facility] INDICATIONS------ | | -----HTN, CP CONCLUSIONS [...] cmLVPWd: 1.05 | | cmLVOT Area: 4.11 uo0SDJZ Diam: 2.29 cm%FS: 36.56 %EF(Teich): 66.45 %ESV(Teich): [...] mlLAESV Index (A-L): 29.41 ml/m2LAAs A2C: 18.54 uf2DKSKR A-L | | A2C: 55.59 mlLALs A2C: 5.24 cmLAAs A4C: 20.75 hf1VVDDF A-L A4C: 77.37 mlLALs | | A4C: 4.72 cmRAAs: 15.78 ie6IVFVT A-L: 37.51 mlRAESV MOD: 37.87 mlRALs: 5.63 | | cmTAPSE: 2.87 cmAV maxP.33 mmHgAV meanP.31 mmHgAV Vmax: 1.35 m/Roberto | | Vmean: 0.85 m/Roberto VTI: 29.14 cmAVA Vmax: 3.33 cm2AVA (VTI): 3.99 sn3LGDO (Vmax): | | 0.00 cm2/m2AVAI (VTI): 0.00 cm2/m2LVOT maxP.79 mmHgLVOT meanP.61 | | mmHgLVSI Dopp: 49.56 ml/m2LVSV Dopp: 116.47 mlLVOT Vmax: 1.09 m/sLVOT Vmean: | | 0.75 m/sLVOT VTI: 28.29 cmMV A Stephen: 1.12 m/sMV Dec [place]: 3.54 m/s2MV DecT: | | 268.22 msMV E Stephen: 0.95 m/sMV E/A Ratio: 0.84MV PHT: 77.78 msMVA By PHT: 2.82 | | nm9Ehjtpn e': 0.05 m/sSeptal E/e': 16.37Lateral e': 0.06 m/sLateral E/e': | | 14.01RAP: 5 mmHgRVSP: 30.32 mmHgTR maxP.32 mmHgTR Vmax: 2.51 m/sRV s': | | 0.16 m/s Soda Dispenser: DBSAuthenticated by: Santo [facility] Date/Time: 05-02-2019 | | 17:39:38 IMPRESSION: [...] A Stephen: 1.12 m/s | |MV Dec [place]: 3.54 m/s2 | |MV DecT: 268.22 ms [...] |RV s': 0.16 m/s | | | |Soda Dispenser: DBS | |Authenticated by: Santo De La [...] +--------+ +---------+--------+ | MEDICARE | MEDICA | [id number] | 11/05/19 | [phone] | | Medica | | | RE | | 16-Pre | 5 | | re | | | PART A | | sent | | | | | | AND B | | | | | | + +--------+ +--------+ +---------+--------+ | MEDICARE | MEDICA | [id number] | 11/05/19 | [phone] | | Medica | | | RE | | 16-Pre | 5 | | re | | | PART A | | sent | | | | | | AND B | | | | | | + +--------+ +--------+ +---------+--------+ | [facility] | IHS | [id number] | | | | Indemn | | SERVICE | YELLOW | | 014-Pr | | | ity | | | HAWK | | esent | | | | + +--------+ +--------+ +---------+--------+ | [employer] | IHS | [id number] | 10/05/19 | | | Indemn | [...] Person | Self | [birth year] | | [address] | | | al/Fam | | 1946 | [phone] | [place], [place] | | | [place] | | | 8 (Home) | [address] | + +--------+ +--------+ + + | Yefri Moreno | Person | Self | [birth year] | | [address] | | | al/Fam | | 1946 | [phone] | [place] | | | [place] | | | 8 (Home) | [address] | + +--------+ +--------+ + + Advance Directives Patient has advance care planning documents on file. For more information, please contact:[facility] [place] [address]
--- OUTSIDE RECORDS SUMMARY | ~2019-07-17 | XMS | Encounter Summary ---
Demographics + + + | Address | [address] [place] [address] RD | | | [place] [address] | + + + | Home Phone | | + + + | Preferred Language | Unknown | + + + | Marital Status | Single | + + + | Advent Affiliation | Unknown | + + + | Race | Unknown | + + + | Ethnic Group | Unknown | + + + Author + + + | Author | [facility] | | | and [place] | + + + | Organization | [facility] | | | [...] Team Providers + +------+ + | Care Assistant Professor Of English Name | Role | Phone | + [...] | | | | [place] | [phone] | | | | | [address] | | | | | | [phone] | | | +--------+ + + + [...] [place] | | | | | | [address] | | | | | | | [...] MV A Stephen: 1.12 m/s MV Dec [place]: 3.54 m/s2 | | | MV DecT: [...] RV s': 0.16 m/s | | | Aws Developer: WENDY Authenticated by: Santo De La O [...] cmLVPWd: 1.05 | | cmLVOT Area: 4.11 vj2FDDZ Diam: 2.29 cm%FS: 36.56 %EF(Teich): 66.45 %ESV(Teich): [...] mlLAESV Index (A-L): 29.41 ml/m2LAAs A2C: 18.54 xl2NAESE A-L | | A2C: 55.59 mlLALs A2C: 5.24 cmLAAs A4C: 20.75 pf6FIQSP A-L A4C: 77.37 mlLALs | | A4C: 4.72 cmRAAs: 15.78 jg4FHGJU A-L: 37.51 mlRAESV MOD: 37.87 mlRALs: 5.63 | | cmTAPSE: 2.87 cmAV maxP.33 mmHgAV meanP.31 mmHgAV Vmax: 1.35 m/Roberto | | Vmean: 0.85 m/Roberto VTI: 29.14 cmAVA Vmax: 3.33 cm2AVA (VTI): 3.99 nf4DLVX (Vmax): | | 0.00 cm2/m2AVAI (VTI): 0.00 cm2/m2LVOT maxP.79 mmHgLVOT meanP.61 | | mmHgLVSI Dopp: 49.56 ml/m2LVSV Dopp: 116.47 mlLVOT Vmax: 1.09 m/sLVOT Vmean: | | 0.75 m/sLVOT VTI: 28.29 cmMV A Stephen: 1.12 m/sMV Dec [place]: 3.54 m/s2MV DecT: | | 268.22 msMV E Stephen: 0.95 m/sMV E/A Ratio: 0.84MV PHT: 77.78 msMVA By PHT: 2.82 | | sw2Zbgomb e': 0.05 m/sSeptal E/e': 16.37Lateral e': 0.06 m/sLateral E/e': | | 14.01RAP: 5 mmHgRVSP: 30.32 mmHgTR maxP.32 mmHgTR Vmax: 2.51 m/sRV s': | | 0.16 m/s Aws Developer: DBSAuthenticated by: Santo Soliman Date/Time: 05-02-2019 | [...] A Stephen: 1.12 m/s | |MV Dec [place]: 3.54 m/s2 | |MV DecT: 268.22 ms [...] |RV s': 0.16 m/s | | | |Aws Developer: DBS | |Authenticated by: Santo De La [...]
--- OUTSIDE RECORDS SUMMARY | ~2019-07-17 | XMS | Encounter Summary ---
Demographics + + + | Address | [address] [place] [address] RD | | | [place] [address] | + + + | Home Phone | | + + + | Preferred Language | Unknown | + + + | Marital Status | Single | + + + | Sabianism Affiliation | Unknown | + + + | Race | Unknown | + + + | Ethnic Group | Unknown | + + + Author + + + | Author | [facility] (Historical as of | | | 05-21-19) | + + + | Organization | [facility] (Historical as of | | | 05-21-19) [...] Team Providers + +------+ + | Care Senior Bi Developer Name | Role | Phone | + [...] | 2019 | Procedure | ECHO | [address] | unspecified type; | | | | | [address] | Chest pain, | | | | | [place] [address] | unspecified type | | | | | [phone] | | | | | | | [...] Yefri Moreno Date of : 1945 | [facility] | | Performing Physician: Santo De La [...] MV A Stephen: 1.12 m/s MV Dec [place]: 3.54 m/s2 | | | MV DecT: [...] RV s': 0.16 m/s | | | Rolfer: WENDY Authenticated by: Santo [place] Report | | | Date/Time: 05-02-2019 17:39:38 | | + + + + + | Procedure Note | + + | Pancho, Rad Results In - 05/02/2019 5:40 PM PDT Patient Name: Cassy Moreno of | | : 5Accession: [id number] Physician: Santo | | [place] INDICATIONS------ | [...] cmLVPWd: 1.05 | | cmLVOT Area: 4.11 nc1HPCS Diam: 2.29 cm%FS: 36.56 %EF(Teich): 66.45 %ESV(Teich): [...] mlLAESV Index (A-L): 29.41 ml/m2LAAs A2C: 18.54 tn6IIOBR A-L | | A2C: 55.59 mlLALs A2C: 5.24 cmLAAs A4C: 20.75 dd7RYKRF A-L A4C: 77.37 mlLALs | | A4C: 4.72 cmRAAs: 15.78 sa7LMJGS A-L: 37.51 mlRAESV MOD: 37.87 mlRALs: 5.63 | | cmTAPSE: 2.87 cmAV maxP.33 mmHgAV meanP.31 mmHgAV Vmax: 1.35 m/Roberto | | Vmean: 0.85 m/Roberto VTI: 29.14 cmAVA Vmax: 3.33 cm2AVA (VTI): 3.99 zt2YSUJ (Vmax): | | 0.00 cm2/m2AVAI (VTI): 0.00 cm2/m2LVOT maxP.79 mmHgLVOT meanP.61 | | mmHgLVSI Dopp: 49.56 ml/m2LVSV Dopp: 116.47 mlLVOT Vmax: 1.09 m/sLVOT Vmean: | | 0.75 m/sLVOT VTI: 28.29 cmMV A Stephen: 1.12 m/sMV Dec [place]: 3.54 m/s2MV DecT: | | 268.22 msMV E Stephen: 0.95 m/sMV E/A Ratio: 0.84 MV PHT: 77.78 msMVA By PHT: 2.82 | | ad4Hgbqfp e': 0.05 m/sSeptal E/e': 16.37 Lateral e': 0.06 m/sLateral E/e': 14.01 | | RAP: 5 mmHgRVSP: 30.32 mmHgTR maxP.32 mmHgTR Vmax: 2.51 m/sRV s': 0.16 | | m/sSonographer: DBSAuthenticated by: Santo [facility] Date/Time: 05-02-2019 | | 17:39:38IMPRESSION:1. [...] A Stephen: 1.12 m/s | |MV Dec [place]: 3.54 m/s2 | |MV DecT: 268.22 ms [...] |RV s': 0.16 m/s | | | |Rolfer: DBS | |Authenticated by: Santo De La [...] | + + + + + | [facility] | [address] | [place] [address] | | + + + + + in this encounter Visit Diagnoses + + | Diagnosis | + + | Hypertension, unspecified type | + + | Chest pain, unspecified type | + +"
--- OUTSIDE RECORDS SUMMARY | ~2019-07-17 | XMS | Encounter Summary ---
Demographics + + + | Address | [address] [place] [address] RD | | | [place] [address] | + + + | Home Phone | | + + + | Preferred Language | Unknown | + + + | Marital Status | Single | + + + | Temple Affiliation | Unknown | + + + | Race | Unknown | + + + | Ethnic Group | Unknown | + + + Author + + + | Author | [facility] (Historical as of | | | 05-21-19) | + + + | Organization | [facility] (Historical as of | | | 05-21-19) [...] Team Providers + +------+ + | Care Crocodile Farmer Name | Role | Phone | + [...] | 2019 | Orders | ECHO | BATTERY ENGINE[address] | unspecified type; | | | | | [address] | Chest pain, | | | | | [place] [address] | unspecified type | | | | | [phone] | | | | | | | [...] Yefri Moreno Date of : 1945 | [facility] | | Performing Physician: Santo [...] MV A Stephen: 1.12 m/s MV Dec [place]: 3.54 m/s2 | | | MV DecT: [...] RV s': 0.16 m/s | | | Senior Backup Administrator: DBS Authenticated by: Santo De La O Report | | | Date/Time: 05-02-2019 17:39:38 | | + + + + + | Procedure Note | + + | Pancho, Rad Results In - 05/02/2019 5:40 PM PDT Patient Name: Cassy Moreno of | | : 5Accession: [id number] Physician: Santo | | [place] INDICATIONS------ | [...] cmLVPWd: 1.05 | | cmLVOT Area: 4.11 vw3SKJY Diam: 2.29 cm%FS: 36.56 %EF(Teich): 66.45 %ESV(Teich): [...] mlLAESV Index (A-L): 29.41 ml/m2LAAs A2C: 18.54 tz3PZUUU A-L | | A2C: 55.59 mlLALs A2C: 5.24 cmLAAs A4C: 20.75 cx3YNZCH A-L A4C: 77.37 mlLALs | | A4C: 4.72 cmRAAs: 15.78 dw0DQKPW A-L: 37.51 mlRAESV MOD: 37.87 mlRALs: 5.63 | | cmTAPSE: 2.87 cmAV maxP.33 mmHgAV meanP.31 mmHgAV Vmax: 1.35 m/Roberto | | Vmean: 0.85 m/Roberto VTI: 29.14 cmAVA Vmax: 3.33 cm2AVA (VTI): 3.99 gd5KIEX (Vmax): | | 0.00 cm2/m2AVAI (VTI): 0.00 cm2/m2LVOT maxP.79 mmHgLVOT meanP.61 | | mmHgLVSI Dopp: 49.56 ml/m2LVSV Dopp: 116.47 mlLVOT Vmax: 1.09 m/sLVOT Vmean: | | 0.75 m/sLVOT VTI: 28.29 cmMV A Stephen: 1.12 m/sMV Dec [place]: 3.54 m/s2MV DecT: | | 268.22 msMV E Stephen: 0.95 m/sMV E/A Ratio: 0.84 MV PHT: 77.78 msMVA By PHT: 2.82 | | oc3Jkwikz e': 0.05 m/sSeptal E/e': 16.37 Lateral e': [...] A Stephen: 1.12 m/s | |MV Dec [place]: 3.54 m/s2 | |MV DecT: 268.22 ms [...] |RV s': 0.16 m/s | | | |Senior Backup Administrator: DBS | |Authenticated by: Santo De La [...] | + + + + + | [facility] | [address] | [place] [address] | | + + + + + in this encounter Visit Diagnoses + + | Diagnosis | + + | Hypertension, unspecified type | + + | Chest pain, unspecified type | + +"
--- OUTSIDE RECORDS SUMMARY | ~2019-07-17 | XMS | Encounter Summary ---
Demographics + + + | Address | [address] [place] [address] RD | | | [place] [address] | + + + | Home Phone | | + + + | Preferred Language | Unknown | + + + | Marital Status | Single | + + + | Adventism Affiliation | Unknown | + + + | Race | Unknown | + + + | Ethnic Group | Unknown | + + + Author + + + | Author | [facility] (Historical as of | | | 05-21-19) | + + + | Organization | [facility] (Historical as of | | | 05-21-19) [...] Providers + +------+ + | Care Supervisor Fabrication And Assembly Name | Role | Phone | + +------+ + | Dr. Viktor | PCP | Unavailable | + +------+ + Encounter Details +--------+ + + + + | Date | Type | Department | Care Team | Description | +--------+ + + + + | 05/10/ | Documentati | [facility] | Santo De La O, | | | 2019 | on Only | Cardiology David | [address] | | | | | [address] | [address], | | | | | [place] | [place] [address] | | | | | [address] | [phone] | | | | | [phone] | | | +--------+ + + + [...]
--- OUTSIDE RECORDS SUMMARY | ~2019-07-17 | XMS | Clinical Summary ---
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; | | | | | | Chest pain, | | | | | | unspecified type | +--------+ + + + + | 05/02/ | Ancillary | | Elidia Gray, | Hypertension, | | 2019 | Orders | | INSIDE BARREL LATHE OPERATOR | unspecified type; | | | [...] Patricio Vivas Date of : 1945 | [facility] | | Performing Physician: Santo [...] MV A Stephen: 1.12 m/s MV Dec [place]: 3.54 m/s2 | | | MV DecT: [...] RV s': 0.16 m/s | | | Media Sales Representative: DBS Authenticated by: Santo De La O Report | | | Date/Time: 05-02-2019 17:39:38 | | + + + + + | Procedure Note | + + | Pancho, Rad Results In - 05/02/2019 5:40 PM PDT Patient Name: Cassy Vivas of | | : 5Accession: [id number] Physician: Santo | | [place]am[place] INDICATIONS------ | [...] cmLVPWd: 1.05 | | cmLVOT Area: 4.11 cz5HMHE Diam: 2.29 cm%FS: 36.56 %EF(Teich): 66.45 %ESV(Teich): [...] mlLAESV Index (A-L): 29.41 ml/m2LAAs A2C: 18.54 mp0IXICB A-L | | A2C: 55.59 mlLALs A2C: 5.24 cmLAAs A4C: 20.75 ng7ETGTJ A-L A4C: 77.37 mlLALs | | A4C: 4.72 cmRAAs: 15.78 ia9TSNXI A-L: 37.51 mlRAESV MOD: 37.87 mlRALs: 5.63 | | cmTAPSE: 2.87 cmAV maxP.33 mmHgAV meanP.31 mmHgAV Vmax: 1.35 m/Roberto | | Vmean: 0.85 m/Roberto VTI: 29.14 cmAVA Vmax: 3.33 cm2AVA (VTI): 3.99 og7ELRN (Vmax): | | 0.00 cm2/m2AVAI (VTI): 0.00 cm2/m2LVOT maxP.79 mmHgLVOT meanP.61 | | mmHgLVSI Dopp: 49.56 ml/m2LVSV Dopp: 116.47 mlLVOT Vmax: 1.09 m/sLVOT Vmean: | | 0.75 m/sLVOT VTI: 28.29 cmMV A Stephen: 1.12 m/sMV Dec [place]: 3.54 m/s2MV DecT: | | 268.22 msMV E Stephen: 0.95 m/sMV E/A Ratio: 0.84 MV PHT: 77.78 msMVA By PHT: 2.82 | | hx2Yonojx e': 0.05 m/sSeptal E/e': 16.37 Lateral e': [...] A Stephen: 1.12 m/s | |MV Dec [place]: 3.54 m/s2 | |MV DecT: 268.22 ms [...] |RV s': 0.16 m/s | | | |Media Sales Representative: WENDY | |Authenticated by: Santo Christinemariajose | [...] | + + + + + | [facility] | [address] | [place] [address] | | + + + + + [...] +------+-------+ + | MEDICARE | MEDICA | [id number] | | | [address] | | | RE | | | | [place] [address] | | | IP-OP | | | | | + +--------+ +------+-------+ + | [facility] | YELLOW | [id number] | | | | | PLANS | [...] | Self [birth year] Home: | [id number] | | | al/Fam | | 1946 | [phone] | [place]TI[place] | | | [place] | | | [phone] | [phone] | + +--------+ +--------+ + +"
--- OUTSIDE RECORDS SUMMARY | 2019-07-17 20:56 | XMS ---
PreManage Notification: PATRICIO VIVAS Security Plaster Pattern Caster Events No recent Security Events currently on file CRITERIA MET - [facility] - 2 Visits in [address] ANTONETTE HORAN Primary Care Current PHONE: [phone] Perla has no Care Guidelines for this patient. E.DLake VISIT COUNT (12 MO.) [address] [place] [address] TOTAL 4 NOTE: Visits indicate total known visits. 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 - Allergy status to other antibiotic agents status - Allergy status to oth drug/meds/biol subst status 04/05/2019 15:43 [facility] [place] TYPE: Emergency COMPLAINT: - HIGH BLOOD PRESSURE DIAGNOSES: - Allergy status to penicillin - Personal history of nicotine dependence - Allergy status to other antibiotic agents status - Essential (primary) hypertension - Allergy status to oth drug/meds/biol subst status - Acquired absence of other organs - 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
[2019-07-17] MEDS ORDERED: BACTRIM DS TAB1 EACH PO (22:29)
== END 2019-07-17 22:44 | disposition home or self-care (01) ==
LOC: ED 20:53
DX: E11.622 Type 2 diabetes mellitus with other skin ulcer (principal); L97.321 Non-pressure chronic ulcer of left ankle limited to breakdown of skin; I10 Essential (primary) hypertension; Z88.0 Allergy status to penicillin; Z88.1 Allergy status to other antibiotic agents; Z88.8 Allergy status to other drugs, medicaments and biological substances; Z79.4 Long term (current) use of insulin; Z79.899 Other long term (current) drug therapy
CPT/HCPCS: 73610; 80053; 85025; 99283

== ENCOUNTER 2019-10-19 14:07 | Emergency (ER) | payer MEDICARE, OTHER ==
[~2019-10-19] VITALS: Ht 190.5 cm; Wt 111.1 kg
--- OUTSIDE RECORDS SUMMARY | ~2019-10-19 | XMS | Encounter Summary ---
Demographics + + + | Address | [id number] [place] [address] RD | | | [place] [address] | + + + | Home Phone | | + + + | Preferred Language | Unknown | + + + | Marital Status | Single | + + + | Taoist Affiliation | Unknown | + + + | Race | Unknown | + + + | Ethnic Group | Unknown | + + + Author + + + | Author | [facility] | | | and [place] | + + + | Organization | [facility] | | | and [place] | + + + | Address | Unknown | + + + | Phone | Unavailable | + + + Support + + +---------+ + | Name | Relationship | Address | Phone | + + +---------+ + | Leslijeff Garcia | ECON | Unknown | | + + +---------+ + Care Team Providers + +------+ + | Care Lisw Name | Role | Phone | + +------+ + | Maikol Birmingham DO | PCP | | + +------+ + Reason for Visit + + + | Reason | Comments | + + + | New Patient | NEW PATIENT | + + + Evaluate & Treat +--------+--------+ + + + + | Status | Reason | Specialty | Diagnoses / | Referred By | Referred To | | | | | Procedures | Contact | Contact | +--------+--------+ + + + + | Closed | | Cardiology | Diagnoses | Quaempts, | Lobato, | | | | | chest pain | Maikol M, DO | Charlotte, DO | | | | | & | [address] | [address] | | | | | [address] | [address] | [address] | | | | | htn | [place], | [place], [place] | | | | | Procedures | [place] [address] | [address] Phone: | | | | | Consult | Phone: | [phone] | | | | | | [phone] | Fax: | | | | | | Fax: | [phone] | | | | | | [phone] | | +--------+--------+ + + + + Encounter Details +--------+---------+ + + + | Date | Type | Department | Care Team | Description | +--------+---------+ + + + | 07/28/ | Office | [facility] | Charlotte Lobato DO | Chest pain, | | 2019 | Visit | CARDIOLOGY [facility] | [address] | unspecified type | | | | [address] | [place] | (Primary Dx); Benign | | | | [address] | [address] | hypertension; | | | | [place] | | Hyperlipidemia, | | | | [address] | | unspecified | | | | [phone] | | hyperlipidemia type | +--------+---------+ + + + Social History + +-------+ +--------+------+ | Tobacco Use | Types | Packs/Day | Years | Date | | | | | Used | | + +-------+ +--------+------+ | Former Smoker | | | | | + +-------+ +--------+------+ + +---+---+---+ | Smokeless Tobacco: | | | | | Never Used | | | | + +---+---+---+ + + +---------+ + | Alcohol Use | Drinks/Week | oz/Week | Comments | + + +---------+ + | Not Currently | | | | + + +---------+ + + + + | Sex Assigned at | Date Recorded | | | | + + + | Not on file | | + + + + + + + | Job Start Date | Occupation | Industry | + + + + | Not on file | Not on file | Not on file | + + + + + + + + | Travel History | Travel Start | Travel End | + + + + + + | No recent travel history available. | + + documented as of this encounter Last Filed Vital Signs + + + + + | Vital Sign | Reading | Time Taken | Comments | + + + + + | Blood Pressure | 118/66 | 07/28/2019 9:03 AM | | | | | PDT | | + + + + + | Pulse | 58 | 07/28/2019 9:03 AM | | | | | PDT | | + + + + + | Temperature | - | - | | + + + + + | Respiratory Rate | - | - | | + + + + + | Oxygen Saturation | 99% | 07/28/2019 9:03 AM | | | | | PDT | | + + + + + | Inhaled Oxygen | - | - | | | Concentration | | | | + + + + + | Weight | 114.3 kg (252 lb) | 07/28/2019 9:03 AM | | | | | PDT | | + + + + + | Height | 190.5 cm (6' 3") | 07/28/2019 9:03 AM | | | | | PDT | | + + + + + | Body Mass Index | 31.5 | 07/28/2019 9:03 AM | | | | | PDT | | + + + + + documented in this encounter Progress Notes Charlotte Lobato DO - 07/28/2019 9:00 AM PDT [facility] Cardiology Cardiology Consult Note Reason for Consultation: chest pain Requesting Physician: Provider Not, In System History Obtained From: patient HISTORY OF PRESENT ILLNESS: Cardiac Problem List Hypertension Hyperlipidemia Non Cardiac Problem List Type 2 diabetes GERD Prior tobacco habituation The patient is a very pleasant 73-year-old male, who presents to the Cardiology office for initial consultation regarding episodes of chest discomfort and hypertension. The patient r eports that he has had intermittent episodes of chest discomfort for the past year. At firs t, he thought that these were related to him quitting smoking. The chest pain is substernal and described as sharp and intermittent. It typically lasts about 1-2 minutes. He is uns ure if the pain has never radiated. It occurs primarily when he is sitting and resting. It was previously occurring maybe once every week to once every 2 weeks. He has not experienc ed an episode in the past month. The symptoms are associated with some fatigue. The pain i s rated at 5/10 in intensity when it occurs. He denies any specific triggers. He notes lucas t the pain is not associated with exertion. He is unsure if it is aggravated by inspiratio n or position. He describes himself as an active individual. He plays golf twice a week an d rides his bike and lifts weights. The last bike ride that he went on was last week when rosangela loaiza rode for 5 miles including hills. He had no replication of the pain with any of this acti vity and again has never noticed the pain when he is being physically active. He denies any recent shortness of breath, lower extremity swelling, orthopnea, PND. He denies any episo beverly of syncope, presyncope or palpitations. He recently underwent an EKG exercise stress te st, which was done on 04/20/2019, which demonstrated average exercise capacity for age and g cortez. No chest pain. He was noted to have T-wave inversions in the inferior and lateral l severiano at peak exertion, which were nondiagnostic of ischemia. His Vega treadmill score was + 6 and overall the study was felt to be a low risk. He was noted to have a hypertensive res ponse to exercise. He has not been checking his blood pressures at home. Today, his blood pressures appeared to be well controlled. He also underwent an echocardiogram on 05/02/2019 , which demonstrated an overall normal left ventricular ejection fraction at 60-65 percent. No regional wall motion, no pericardial effusion. Review of Systems Constitutional: Negative for fatigue. HENT: Negative for nosebleeds. Eyes: Negative for visual disturbance. Respiratory: Negative for cough and shortness of breath. Cardiovascular: see HPI Gastrointestinal: Negative for nausea, vomiting, abdominal pain and blood in stool. Genitourinary: Negative for hematuria or dysuria. Musculoskeletal: Negative for myalgias, back pain and arthralgias. Skin: Negative for color change. Neurological: Negative for dizziness, syncope and numbness. Hematological: Does not bruise/bleed easily. Psychiatric/Behavioral: The patient is not nervous/anxious. PAST MEDICAL & SURGICAL HISTORY Past Medical History: Diagnosis Date Angina pectoris (HCC) Diabetes mellitus (HCC) Hyperlipidemia Hypertension History reviewed. No pertinent surgical history. MEDICATIONS Home Medications Outpatient Encounter Medications as of 07/28/2019 Medication Sig Dispense Refill amLODIPine (NORVASC) 5 mg tablet Take 5 mg by mouth Daily. aspirin 81 mg EC tablet Take 81 mg by mouth Daily. cholecalciferol (D3 HIGH POTENCY) 2,000 units capsule Take 2,000 Units by mouth Daily. glimepiride (AMARYL) 4 mg tablet Take 4 mg by mouth every morning (before breakfast). [DISCONTINUED] guaiFENesin-dextromethorphan (ROBITUSSIN DM) 100-10 mg/5 mL syrup Take 5 mLs by mouth 3 times daily as needed for Cough. insulin glargine (LANTUS) 100 units/mL injection (vial) Inject under the skin nightly. lisinopril (PRINIVIL,ZESTRIL) 40 MG tablet Take 40 mg by mouth Daily. [DISCONTINUED] lisinopril (PRINIVIL,ZESTRIL) 40 MG tablet Take 40 mg by mouth Daily. metoprolol succinate (TOPROL-XL) 100 mg ER tablet Take 100 mg by mouth Daily. omeprazole (PRILOSEC) 20 mg capsule Take 20 mg by mouth every morning (before breakfast ). rosuvastatin (CRESTOR) 20 mg tablet Take 20 mg by mouth nightly. sitagliptan-metFORMIN (JANUMET) 50-1000 MG per tablet Take 1 tablet by mouth 2 times da bernard (with breakfast & dinner). [DISCONTINUED] tadalafil (CIALIS) 20 MG tablet Take 20 mg by mouth as needed for Erecti le Dysfunction. No facility-administered encounter medications on file as of 07/28/2019. Allergies Allergies Allergen Reactions Penicillins FAMILY HISTORY History reviewed. No pertinent family history. SOCIAL HISTORY Social History Socioeconomic History Marital status: Single Spouse name: Not on file Number of children: Not on file Years of education: Not on file Highest education level: Not on file Social Needs Financial resource strain: Not on file Food insecurity - worry: Not on file Food insecurity - inability: Not on file Transportation needs - medical: Not on file Transportation needs - non-medical: Not on file Occupational History Not on file Tobacco Use Smoking status: Former Smoker Smokeless tobacco: Never Used Substance and Sexual Activity Alcohol use: Not Currently Drug use: Never Sexual activity: Not on file Other Topics Concern Not on file Social History Narrative Not on file quit smoking 7 months ago PHYSICAL EXAM Vital Signs: BP 118/66 | Pulse 58 | Ht 1.905 m (6' 3") | Wt 114.3 kg (252 lb) | SpO2 99 % | BMI 31.50 kg/m Physical Exam GENERAL: Well developed, well nourished, in no distress. Appears approximately stated age . HEENT: Normocephalic, atraumatic. EYES: PERRL, sclerae anicteric, no xanthelsasmas NECK: No JVD, lymphadenopathy, thyromegaly, bruits. Carotid pulses are 2+ bilaterally LUNGS: Clear bilaterally, with no rales, rhonchi or wheezing noted, respirations unlabored HEART: Nondisplaced PMI, regular rate and rhythm, S1, S2 normal. ABDOMEN: Soft, nontender, no organomegaly, masses or bruits. Bowel sounds are normal in a ll 4 quadrants. The abdominal aortic pulsation is not palpable. EXTREMITIES: No edema. Radial pulses 2+ bilaterally. DP and PT pulses are 2+ bilaterally. SKIN: Warm and dry, capillary refill is normal, no lesions. NEUROLOGIC: Awake, alert and oriented x 3. No focal motor deficits. PSYCHIATRIC: Appropriate, affect appears normal DATA Lab Results Component Value Date WBC 5.3 09/28/2013 HGB 13.5 09/28/2013 HCT 38.5 (L) 09/28/2013 PLT 201 09/28/2013 No results found for: INR, PTT Lab Results Component Value Date NA 134 (L) 09/28/2013 K 3.8 09/28/2013 CL 100 09/28/2013 CO2 27 09/28/2013 BUN 14 09/28/2013 CREA 1.37 (H) 09/28/2013 AST 22 09/28/2013 ALT 36 09/28/2013 No results found for: CHOL, TRIG, HDL, LDL, TSH Blood work from 03/30/2019 reviewed including hemoglobin A1c 9.3, white blood cell count 6.3 , hemoglobin 14.4, hematocrit 41.1, platelet count 202, sodium 138, potassium 4.1, chloride 100, carbon dioxide 30, total protein 7.1, total bilirubin 0.7, AST 22, ALT 31, alkaline alejandrina sphatase 67, total cholesterol 115, HDL 30, LDL 40, triglycerides 233 EK07/28/2019 ordered and reviewed by myself sinus bradycardia 58 bpm, right bundle branc h block. Last Echo: 05/02/19 CONCLUSIONS 1. Overall left ventricular systolic function is normal with, an EF between 60 - 65 %. 2. The right ventricle is normal in size and function. 3. There is no evidence of pulmonary hypertension. 4. There is no pericardial effusion. Last stress test: 04/20/2019-EKG exercise stress test -Borderline EKG exercise stress test -Average exercise capacity for age and gender -No chest pain -T wave inversions in the inferior and lateral leads at peak exertion which were suggestive but nondiagnostic of ischemia - Vega Treadmill score is +6 - hypertensive response to exercise Last cath: 2007 CORONARY ANGIOGRAPHY 1. Left main was normal. 2. Left anterior descending (LAD) was normal. 3. Left circumflex was normal. 4. Right coronary artery (RCA) was nondominant and angiographically normal. Carotid US: 05/02/2019 1 to 15% diameter reduction bilaterally AAA screening: Lower extremity US: OTHERS: ASSESSMENT & PLAN 1. Atypical Chest Pain 2. Hypertension 3. Hyperlipidemia 4. Type 2 diabetes 5. GERD - The patient is a 73-year-old male, who presents to the Cardiology office for initial cons ultation regarding episodes of atypical chest pain. His chest pains are described as sharp in nature and are not associated with exertion. He had a recent EKG exercise stress test on 04/20/2019, during which the patient had average exercise capacity for age and gender. No chest pain reported. There were T-wave inversions noted in the inferior and lateral leads at peak exertion, which were suggestive, but nondiagnostic of ischemia. All in all, his Duk e treadmill score was +6 inferring a low risk stress test, he also had a hypertensive respon se to exercise. Recently, he has had no recurrence of the chest pain over the past month. He describes himself as an active individual and rode his bike up to 5 miles last week, incl uding up hills without any replication of these symptoms. At this point, I do not believe that any further cardiac testing is warranted. He was encouraged to stay physically active and to call us if any increase in the frequency of the chest pain occurs. His blood pressur e currently appears to be well controlled. -Continue amlodipine 5 mg by mouth daily, continue aspirin 81 mg by mouth daily, continue l isinopril 40 mg by mouth daily, continue metoprolol succinate 100 mg by mouth daily, continu e Crestor 20 mg by mouth daily. -Follow-up with cardiology in 3 months Thank you for allowing me to participate in the care of this patient. Primary Care Physician: DO Charlotte Gill DO 07/28/2019 documented in this enco unter Plan of Treatment +--------+---------+ + + + | Date | Type | Specialty | Care Team | Description | +--------+---------+ + + + | 12/01/ | Office | Cardiology | Charlotte Lobato DO | | | 2019 | Visit | | [address] | | | | | | [place] | | | | | | [address] | | | | | | | | +--------+---------+ + + + documented as of this encounter Procedures + +--------+ + + + | Procedure Name | Priori | Date/Time | Associated Diagnosis | Comments | | | ty | | | | + +--------+ + + + | ECG 12 LEAD | Routin | 07/28/2019 | Chest pain, | Results for this | | | e | 9:08 AM | unspecified type | procedure are in the | | | | PDT | | results section. | + +--------+ + + + documented in this encounter Results ECG 12 lead (07/28/2019 9:08 AM PDT) + + + + + + | Component | Value | Ref Range | Performed | Pathologist | | | | | At | Signature | + + + + + + | VENTRICULAR | 58 | BPM | [facility] | | | RATE EKG | | | | | + + + + + + | ATRIAL RATE | 58 | BPM | [facility] | | + + + + + + | P-R | 156 | ms | [facility] | | | INTERVAL | | | | | + + + + + + | QRS | 130 | ms | [facility] | | | DURATION | | | | | + + + + + + | Q-T | 446 | ms | [facility] | | | INTERVAL | | | | | + + + + + + | Q-T | 437 | ms | [facility] | | | INTERVAL | | | | | | (CORRECTED) | | | | | + + + + + + | P WAVE AXIS | 42 | degrees | [facility] | | + + + + + + | QRS AXIS | 87 | degrees | [facility] | | + + + + + + | T AXIS | 45 | degrees | [facility] | | + + + + + + | INTERPRETAT | Please refer to | | [facility] | | | ION TEXT | Providers office visit | | | | | | note for Providers | | | | | | Interpretation.Confirmed | | | | | | by [facility] Read Only, | | | | | | [facility]CA Anthony ([id number]), | | | | | | order editor Sinan Mo | | | | | | ([id number]) on 07/28/2019 | | | | | | 9:14:36 AM | | | | + + + + + + + + | Specimen | + + | | + + + + + | Narrative | Performed At | + + + | | | + + + + +---------+ + + | Performing | Address | City/State/Zipcode | Phone Number | | Organization | | | | + +---------+ + + | [facility] | | | | + +---------+ + + documented in this encounter Visit Diagnoses + + | Diagnosis | + + | Chest pain, unspecified type - Primary | + + | Benign hypertension Essential hypertension, benign | + + | Hyperlipidemia, unspecified hyperlipidemia type | + + documented in this encounter
--- OUTSIDE RECORDS SUMMARY | ~2019-10-19 | XMS | Clinical Summary ---
Demographics + + + | Address | [address] [place] [address] RD | | | [place] [address] | + + + | Home Phone | | + + + | Preferred Language | Unknown | + + + | Marital Status | Single | + + + | Mormon Affiliation | Unknown | + + + | Race | Unknown | + + + | Ethnic Group | Unknown | + + + Author + + + | Author | [facility] (Historical as of | | | 05-21-19) | + + + | Organization | [facility] (Historical as of | | | 05-21-19) [...] Team Providers + +------+ + | Care Central Office Worker Name | Role | Phone | + +------+ + | Dr. Viktor | PP | Unavailable | + +------+ + Allergies Not on File Current Medications Not on file Active Problems Not on file Social History + +-------+ +--------+------+ | Tobacco [...] | | + + + + + Results Not on filefrom Last 3 Months Insurance + +--------+ +------+-------+ + | Payer | Benefi | Subscriber | Type | Phone | Address | | | t Plan | ID | | | | | | / | | | | | | | Group | | | | | + +--------+ +------+-------+ + | MEDICARE | MEDICA | [id number] | | | [address] | | | RE | | | | [place] [address] | | | IP-OP | | | | | + +--------+ +------+-------+ + | [employer] | YELLOW | [id number] | | | | | PLANS | [...] | Self [birth year] Home: | [address] [facility] | | | al/Fam | | 1946 | [phone] | [place] | | | [place] | | | [phone] | [phone] | + +--------+ +--------+ + +"
--- OUTSIDE RECORDS SUMMARY | ~2019-10-19 | XMS | Clinical Summary ---
Demographics + + + | Address | [address] [place] [address] RD | | | [place] [address] | + + + | Home Phone | | + + + | Preferred Language | Unknown | + + + | Marital Status | Single | + + + | Mandaen Affiliation | Unknown | + + + | Race | Unknown | + + + | Ethnic Group | Unknown | + + + Author + + + | Author | [facility] | | | and [place] | + + + | Organization | [facility] | | | and [place] | + + + | Address | Unknown | + + + | Phone | Unavailable | + + + Support + + +---------+ + | Name | Relationship | Address | Phone | + + +---------+ + | Leslijfef Garcia | ECON | Unknown | | + + +---------+ + Care Team Providers + +------+ + | Care Procurement Forester Name | Role | Phone | + +------+ + | Maikol Birmingham DO | PCP | | + +------+ + Allergies + + + + + + | Active Allergy | Reactions | Severity | Noted | Comments | | | | | Date | | + + + + + + | Penicillins | | | 10/01/20 | | | | | | 17 | | + + + + + + Medications + + + +---------+------+------+-------+ | Medication | Sig | Dispensed | Refills | Star | End | Statu | | | | | | t | Date | s | | | | | | Date | | | + + + +---------+------+------+-------+ | aspirin 81 mg EC | Take 81 mg by mouth | | 0 | | | Activ | | tablet | Daily. | | | | | e | + + + +---------+------+------+-------+ | cholecalciferol | Take 2,000 Units by | | 0 | | | Activ | | (D3 HIGH POTENCY) | mouth Daily. | | | | | e | | 2,000 units capsule | | | | | | | + + + +---------+------+------+-------+ | insulin glargine | Inject under the | | 0 | | | Activ | | (LANTUS) 100 | skin nightly. | | | | | e | | units/mL injection | | | | | | | | (vial) | | | | | | | + + + +---------+------+------+-------+ | glimepiride | Take 4 mg by mouth | | 0 | | | Activ | | (AMARYL) 4 mg tablet | every morning | | | | | e | | | (before breakfast). | | | | | | + + + +---------+------+------+-------+ | metoprolol | Take 100 mg by mouth | | 0 | | | Activ | | succinate | Daily. | | | | | e | | (TOPROL-XL) 100 mg | | | | | | | | ER tablet | | | | | | | + + + +---------+------+------+-------+ | omeprazole | Take 20 mg by mouth | | 0 | | | Activ | | (PRILOSEC) 20 mg | every morning | | | | | e | | capsule | (before breakfast). | | | | | | + + + +---------+------+------+-------+ | rosuvastatin | Take 20 mg by mouth | | 0 | | | Activ | | (CRESTOR) 20 mg | nightly. | | | | | e | | tablet | | | | | | | + + + +---------+------+------+-------+ | | Take 1 tablet by | | 0 | | | Activ | | sitagliptan-metFORMI | mouth 2 times daily | | | | | e | | N (BHAVYA) 50-1000 | (with breakfast & | | | | | | | MG per tablet | dinner). | | | | | | + + + +---------+------+------+-------+ | amLODIPine | Take 5 mg by mouth | | 0 | | | Activ | | (NORVASC) 5 mg | Daily. | | | | | e | | tablet | | | | | | | + + + +---------+------+------+-------+ | lisinopril | Take 40 mg by mouth | | 0 | | | Activ | | (PRINIVIL,ZESTRIL) | Daily. | | | | | e | | 40 MG tablet | | | | | | | + + + +---------+------+------+-------+ Active Problems + + + | Problem | Noted Date | + + + | Dysphonia | 10/12/2017 | + + + | Fatigue | 10/01/2017 | + + + | Memory impairment | 10/01/2017 | + + + | Benign hypertension | 10/01/2017 | + + + | Vitamin D deficiency | 10/01/2017 | + + + | Hypertriglyceridemia | 10/01/2017 | + + + | Smoker | 10/01/2017 | + + + | Diabetes | 10/01/2017 | + + + | Chronic alcoholism | 10/01/2017 | + + + | Cocaine dependence in remission | 10/01/2017 | + + + | Chronic hoarseness | 10/01/2017 | + + + | Cough | 10/01/2017 | + + + Encounters +--------+---------+ + + + | Date | Type | Specialty | Care Team | Description | +--------+---------+ + + + | 07/28/ | Office | Cardiology | Charlotte Lobato DO | Chest pain, | | 2018 | Visit | | | unspecified type | | | | | | (Primary Dx); Benign | | | | | | hypertension; | | | | | | Hyperlipidemia, | | | | | | unspecified | | | | | | hyperlipidemia type | +--------+---------+ + + + from Last 3 Months Family History + +------+ + + | Relation | Name | Status | Comments | + +------+ + + | Father | | | | + +------+ + + | Mother | | | | + +------+ + + Social History + +-------+ +--------+------+ [...] recent travel history available. | + + Last Filed Vital Signs + + + [...] + + + + | Temperature | 1 C (33.8 F) | 10/01/2017 7:49 AM | | | | | PST | | + + + + + | Respiratory Rate | 16 | 10/01/2017 1:22 PM | | | | | PST | | + + + + + [...] | | + + + + + Plan of Treatment +--------+---------+ + + + | Date | Type | Specialty | Care Team | Description | +--------+---------+ + + + | 12/01/ | Office | Cardiology | Charlotte Lobato DO | | | 2019 | Visit | | [address] | | | | | | [place] | | | | | | [address] | | | | | | | | +--------+---------+ + + + + + + + + | Health Maintenance | Due Date | Last Done | Comments | + + + + + | Hepatitis C | | | | | Screening | 5 | | | + + + + + | Vaccine: | | | | | Dtap/Tdap/Td (1 - | 6 | | | | Tdap) | | | | + + + + + | Diabetic Eye Exam | | | | | | 3 | | | + + + + + | Diabetic Foot Exam | | | | | | 3 | | | + + + + + | Hemoglobin A1c | | | | | Screening | 3 | | | + + + + + | Colorectal Cancer | | | | | Screening | 5 | | | | (Colonoscopy) | | | | + + + + + | Vaccine: Zoster (1 | | | | | of 2) | 5 | | | + + + + + | AAA Screening | | | | | | 0 | | | + + + + + | Vaccine: | | | | | Pneumococcal 65+ (1 | 0 | | | | of 2 - PCV13) | | | | + + + + + | Adult Annual | | | | | Wellness Visit | 5 | | | + + [...] section. | + +--------+ + + + from Last 3 Months Results ECG 12 lead (07/28/2019 9:08 AM [...] | | | | | by [employer] Lucan Read Only, | | | | | | [employer] Kris ([id number]), | | | | | | avid editor Sinan Mo | | | | | | (088) on 07/28/2019 | | | | | [...] | | | + +---------+ + + from Last 3 Months Insurance + +--------+ +--------+ +---------+--------+ | Payer | Benefi | Subscriber | Effect | Phone | Address | Type | | | t Plan | ID | adrien | | | | | | / | | Dates | | | | | | Group | | | | | | + +--------+ +--------+ +---------+--------+ | MEDICARE | MEDICA | [id number] | 11/05/19 | [phone] | | Medica | | | RE | | 16-Pre | 5 | | re | | | PART A | | sent | | | | | | AND B | | | | | | + +--------+ +--------+ +---------+--------+ | MEDICARE | MEDICA | [id number] | 11/05/19 | [phone] | | Medica | | | RE | | 16-Pre | 5 | | re | | | PART A | | sent | | | | | | AND B | | | | | | + +--------+ +--------+ +---------+--------+ | [employer] | IHS | [id number] | | | | Indemn | | SERVICE | YELLOW | | 014-Pr | | | ity | | | HAWK | | esent | | | | + +--------+ +--------+ +---------+--------+ | [employer] | IHS | [id number] | 10/05/19 | | | Indemn | | SERVICE | YELLOW | | 19-Pre | | | ity | | | HAWK | | sent | | | | + +--------+ +--------+ +---------+--------+ + +--------+ +--------+ + + | Guarantor Name | Accoun | Relation to | Date | Phone | Billing Address | | | t Type | Patient | of | | | | | | | | | | + +--------+ +--------+ + + | Yefri Moreno | Person | Self | [birth year] | [address] | | | al/Fam | | 1946 | [phone] | [address] [place] | | | [place] | | | [address] (Home) | [address] | + +--------+ +--------+ + + | Yefri Moerno | Person | Self | [birth year] | [address] | | | al/Fam | | 1946 | [phone] | [address] [place] | | | [place] | | | [address] (Home) | [address] | + +--------+ +--------+ + + Advance Directives + + + + + | Type | Date Recorded | Patient | Explanation | | | | Financial Aid Manager | | + + + + + | Power of | | | refused | | Tree Driller | | | | + + + + + | Advance | 04/05/2014 9:29 | | | | Directive | AM | | | + + + + +
--- OUTSIDE RECORDS SUMMARY | ~2019-10-19 | XMS | Encounter Summary ---
Demographics + + + | Address | [address] [place] [address] RD | | | [place] [address] | + + + | Home Phone | | + + + | Preferred Language | Unknown | + + + | Marital Status | Single | + + + | Congregation Affiliation | Unknown | + + + | Race | Unknown | + + + | Ethnic Group | Unknown | + + + Author + + + | Author | [facility] | | | and [place] | + + + | Organization | [facility] | | [...] Team Providers + +------+ + | Care Suspect Artist Name | Role | Phone | + [...] | | | htn | [place], | [place], [place] | | | | | Procedures | [place] [address] | [address] Phone: | | | | | Consult | Phone: | [phone] | | | | | | [phone] | Fax: | | | | | | Fax: | [phone] | | | | | | [phone] | | +--------+--------+ + + + + Encounter Details +--------+---------+ + + + | Date | Type | Department | Care Team | Description | +--------+---------+ + + + | 07/28/ | Office | [facility] | Charlotte Lobato DO | Chest pain, | | 2019 | Visit | CARDIOLOGY [place] | [address] | unspecified type | | | | [address] | [place] | (Primary Dx); Benign | | | | [address] | [address] | hypertension; | | | | [place] | | Hyperlipidemia, | | | | [address] | | unspecified | | | | [phone] | | hyperlipidemia type | +--------+---------+ + [...] Lobato DO - 07/28/2019 9:00 AM PDT [facility] Cardiology Cardiology Consult Note Reason for [...] | | | | | [place] | | | | | | [address] | | | | | | | [...] | | | | | by [employer] Tebbetts Read Only, | | | | | | ICA Anthony ([id number]), | | | | | | acquisition editor Sinan Mo | | | | | | ([phone]) on 07/28/2019 | | | | | [...]
--- OUTSIDE RECORDS SUMMARY | ~2019-10-19 | XMS | Encounter Summary ---
Demographics + + + | Address | [address] [place] [address] RD | | | [place] [address] | + + + | Home Phone | | + + + | Preferred Language | Unknown | + + + | Marital Status | Single | + + + | Restorationist Affiliation | Unknown | + + + | Race | Unknown | + + + | Ethnic Group | Unknown | + + + Author + + + | Author | [facility] | | | and [place] | + + + | Organization | [facility] | | | [...] Team Providers + +------+ + | Care Tower Supervisor Name | Role | Phone | + +------+ + | Rachele Patel MD | PCP | | + +------+ + Encounter Details +--------+ + + + + | Date | Type | Department | Care Team | Description | +--------+ + + + + | 04/04/ | Transcribed | [facility] [place] | Rachele Patel MD | Other chest pain | | 2014 | Orders | CARDIOLOGY [address] | (Primary Dx); | | | | [place], | [place], [place] | Diabetes (HCC) | | | | [place] [address] | [address] | | | | | [phone] | | | +--------+ + + + [...] 12/01/ | Office | Cardiology | Charlotte Lobato, DO | | | 2020 | Visit | | [address] | | | | | | [place] | | | | | | [address] | | | | | | | | +--------+---------+ + + + documented as of this encounter Results Stress ECG (04/05/2014 4:14 PM PDT) + + + | Narrative | Performed At | + + + | Chente Medrano MD 04/05/2014 16:14 | | | TREADMILL STRESS TEST REPORT Patient Name: Yefri Moreno | | | Study Date: 04/05/2014 Primary Care Provider: Rachele Patel MD | | | : 1945 Age: 68 y.o. Gender: male | | | CLINICAL HISTORY/DIAGNOSIS: Chest pain EXERCISE TREADMILL | | | STRESS TEST Indication: chest Procedure: The patient | | | exercised using a standard Sg protocol and walked for 2 minute 0 | | | seconds into stage III achieving 10.1 METS. Total exercise | | | duration was 8 minutes 0 seconds. Heart rate increased from 67 | | | beats per minute to 135 beats per minute which is 89 % of the | | | maximal predicted heart rate. Blood pressure ping from 149/89 mmHg | | | to 193/79 mmHg. The test was stopped because of achievement of | | | targeted heart rate. Baseline EKG showed a sinus rhythm, normal | | | EKG. IMPRESSION: 1. Exercise EKG is negative. | | | 2. Blood pressure response is normal. 3. The patient | | | had Shortness of breath during the procedure. 4. There | | | is rare PVCs during procedure. 5. Exercise tolerance | | | is average for age. Signed by: Chente Medrano MD [facility] | | | 04/05/2014, 16:11 | | + + + + + | Procedure Note | + + | Chente Medrano MD - 04/05/2014 4:11 PM PDT Formatting of this note might be | | different from the original. TREADMILL STRESS TEST REPORT Patient Name: Yefri Woodward | Josh Study Date: 04/05/2014 Primary Care Provider: Rachele Patel MD MRN: | | [id number] : 1945 Age: 68 y.o. Gender: male CLINICAL HISTORY/DIAGNOSIS: | | Chest pain EXERCISE TREADMILL STRESS TESTIndication: chest Procedure: The patient | | exercised using a standard Sg protocol and walked for 2 minute 0 seconds into stage | | III achieving 10.1 METS. Total exercise duration was 8 minutes 0 seconds. Heart rate | | increased from 67 beats per minute to 135 beats per minute which is 89 % of the maximal | | predicted heart rate. Blood pressure ping from 149/89 mmHg to 193/79 mmHg. The test was | | stopped because of achievement of targeted heart rate. Baseline EKG showed a sinus | | rhythm, normal EKG. IMPRESSION: 1. Exercise EKG is negative. 2. Blood pressure | | response is normal. 3. The patient had Shortness of breath during the procedure. | | 4. There is rare PVCs during procedure. 5. Exercise tolerance is average | | for age. Signed by: Chente Medrano MD [facility] 04/05/2014, 16:11 | |Indication: | | chest | | | |Procedure: | |The patient exercised using a standard Sg protocol and walked for 2 minute 0 seconds int o stage III achieving 10.1 METS. Total exercise duration was 8 minutes 0 seconds. Heart ra te increased from 67 beats per | |minute to 135 beats per minute which is 89 % of the maximal predicted heart rate. Blood pr essure ping from 149/89 mmHg to 193/79 mmHg. The test was stopped because of achievement of targeted heart rate. Baseline EKG | |showed a sinus rhythm, normal EKG. | | | |IMPRESSION: | | | | 1. Exercise EKG is negative. | | | | 2. Blood pressure response is normal. | | | | 3. The patient had Shortness of breath during the procedure. | | | | 4. There is rare PVCs during procedure. | | | | 5. Exercise tolerance is average for age. | | | | | |Signed by: Chente Medrano MD [facility] | | 04/05/2014, 16:11 | + + documented in this encounter Visit Diagnoses + + | Diagnosis | + + | Other chest pain - Primary | + + | Diabetes (HCC) | + + documented in this encounter"
--- OUTSIDE RECORDS SUMMARY | ~2019-10-19 | XMS | Encounter Summary ---
Demographics + + + | Address | [address] [place] [address] RD | | | [place] [address] | + + + | Home Phone | | + + + | Preferred Language | Unknown | + + + | Marital Status | Single | + + + | Zoroastrian Affiliation | Unknown | + + + | Race | Unknown | + + + | Ethnic Group | Unknown | + + + Author + + + | Author | [facility] | | | and [place] | + + + | Organization | [facility] | | | [...] Team Providers + +------+ + | Care Group Underwriter Name | Role | Phone | + +------+ + | Maikol Birmingham DO | PCP | | + +------+ + Encounter Details +--------+ + + + + | Date | Type | Department | Care Team | Description | +--------+ + + + + | 10/01/ | Abstract | [facility] [place] | Feliciano Zapata MD | Memory impairment; | | 2017 | | OTOLARYNGOLOGY [address] | [address] [place] | Benign hypertension; | | | | [address] | [address] [place], | Vitamin D | | | | [place], [place] | [place] [address] | deficiency; | | | | [address] | [phone] | Hypertriglyceridemia | | | | [phone] | | ; Smoker; Chronic | | | | | | alcoholism (HCC); | | | | | | Cocaine dependence | | | | | | in remission (HCC); | | | | | | Chronic hoarseness; | | | | | | Cough | +--------+ + + + + Social [...] + | Blood Pressure | 203/93 | 10/01/2017 7:49 AM | | | | | PST | | + + + + + | Pulse | 60 | 10/01/2017 7:49 AM | | | | | PST | | + + + + + | Temperature | 1 C (33.8 F) | 10/01/2017 7:49 AM | | | | | PST | | + + + + + | Respiratory Rate | 16 | 10/01/2017 7:49 AM | | | | | PST | | + + + + + | Oxygen Saturation | 96% | 10/01/2017 7:49 AM | | | | | PST | | + + + + + | Inhaled Oxygen | - | - | | | Concentration | | | | + + + + + | Weight | 113.3 kg (249 lb | 10/01/2017 7:49 AM | | | | 13.2 oz) | PST | | + + + + + | Height | 185.4 cm (6' 1") | 10/01/2017 7:49 AM | | | | | PST | | + + + + + | Body Mass Index | 32.96 | 10/01/2017 7:49 AM | | | | | PST | | + + + + + documented in this encounter Plan of Treatment +--------+---------+ + + + | Date | Type | Specialty | Care Team | Description | +--------+---------+ + + + | 12/01/ | Office | Cardiology | Charlotte Lobato DO | | | 2019 | Visit | | [address] | | | | | | [place] | | | | | | [address] | | | | | | | | +--------+---------+ + + + documented as of this encounter Visit Diagnoses + + | Diagnosis | + + | Memory impairment Memory loss | + + | Benign hypertension Essential hypertension, benign | + + | Vitamin D deficiency Unspecified vitamin D deficiency | + + | Hypertriglyceridemia Pure hyperglyceridemia | + + | Smoker Tobacco use disorder | + + | Chronic alcoholism (HCC) Other and unspecified alcohol dependence, unspecified | | drinking behavior | + + | Cocaine dependence in remission (HCC) Cocaine dependence, in remission | + + | Chronic hoarseness Dysphonia | + + | Cough | + + documented in this encounter
--- OUTSIDE RECORDS SUMMARY | ~2019-10-19 | XMS | Encounter Summary ---
Demographics + + + | Address | [address] [place] [address] RD | | | [place] [address] | + + + | Home Phone [...] + + + | Author | [facility] | | | and [place] | + + + | Organization | [facility] | | | [...] Team Providers + +------+ + | Care Sample Selector Name | Role | Phone | + +------+ + | Rachele Patel MD | PCP | | + +------+ + Reason for Visit Diagnostic/Screening (Routine) +--------+--------+ + + + + | Status | Reason | Specialty | Diagnoses / | Referred By | Referred To | | | | | Procedures | Contact | Contact | +--------+--------+ + + + + | Closed | | Nuclear | Diagnoses | Amanda | | | | | Medicine | Other chest | MD Rachele | | | | | | pain | [address] | | | | | | Procedures | [address] [place] | | | | | | [place] CV STRS | [place] | | | | | | TST XERS&/OR | [address] | | | | | | RX CONT ECG | Phone: | | | | | | W/SI&R [place] | [phone] | | | | | | CV STRS TST | Fax: | | | | | | XERS&/OR RX | [phone] | | | | | | CONT ECG W/O | | | | | | | I&R [place] | | | | | | | CARDIAC | | | | | | | STRESS | | | | | | | TST,TRACING | | | | | | | ONLY [place] | | | | | | | CARDIAC | | | | | | | STRESS | | | | | | | TST,INTERP/R | | | | | | | EPT ONLY | | | +--------+--------+ + + + + Encounter Details +--------+ + + + + | Date | Type | Department | Care Team | Description | +--------+ + + + + | 04/05/ | Hospital | [facility] | Rachele Patel MD | Other chest pain | | 2014 | Encounter | [facility] | [address] | (Primary Dx) | | | | MEDICINE [address] | [place], [place] | | | | | [place], | [address] | | | | | [place] [address] | | | | | | [phone] | | | +--------+ + + + [...] Description | +--------+---------+ + + + | Office | Cardiology | LobatoCharlotte hui | | | 2019 | Visit | | [address] | | | | | | [place] | | | | | | [address] | | | | | | | | +--------+---------+ + + + documented as of this encounter Procedures + +--------+ + + + | Procedure Name | Priori | Date/Time | Associated Diagnosis | Comments | | | ty | | | | + +--------+ + + + | STRESS ECG | Routin | 04/05/2014 | Other chest pain | Results for this | | | e | 4:14 PM | Diabetes (HCC) | procedure are in the | | | | PDT | | results section. | + +--------+ + + + documented in this encounter Results Stress ECG (04/05/2014 4:14 [...] for age. Signed by: Chente Medrano MD [facility] | | | 04/05/2014, 16:11 | | + + + + + | Procedure Note | + + | Chente Medrano MD - 04/05/2014 4:11 PM PDT Formatting of this note might be | | different from the original. TREADMILL STRESS TEST REPORT Patient Name: Yefri Moreno Study Date: 04/05/2014 Primary Care Provider: Rachele Patel MD MRN: | | [id number] : 1945 Age: 68 y.o. Gender: male [...] for age. Signed by: Chente Medrano MD [facility] 04/05/2014, 16:11 | |Indication: | | [...] | | |Signed by: Chente Medrano MD [facility] | | 04/05/2014, 16:11 | + + documented in this encounter Visit Diagnoses + + | Diagnosis | + + | Other chest pain - Primary | + + documented in this encounter"
--- OUTSIDE RECORDS SUMMARY | ~2019-10-19 | XMS | Encounter Summary ---
Demographics + + + | Address | [address] [place] [address] RD | | | [place] [address] | + + + | Home Phone | | + + + | Preferred Language | Unknown | + + + | Marital Status | Single | + + + | Episcopalian Affiliation | Unknown | + + + | Race | Unknown | + + + | Ethnic Group | Unknown | + + + Author + + + | Author | [facility] | | | and [place] | + + + | Organization | [facility] | | | [...] Team Providers + +------+ + | Care Circus Rider Name | Role | Phone | + +------+ + | Maikol Birmingham DO | PCP | | + +------+ + Encounter Details +--------+ + + + + | Date | Type | Department | Care Team | Description | +--------+ + + + + | 05/02/ | Orders Only | [facility] | Conversion | | | 2019 | | CONVERSION 888 | Transaction, | | | | | CARTER SUTHERLAND | Provider Unknown | | | | | [place] | [phone] | | | | | [address] | | | | | | [phone] | | | +--------+ + + + [...] [place] | | | | | | [address] | | | | | | | [...] | OF OUTSIDE FILMS | e | 4:47 PM | | procedure are in the | | | | PDT | | results section. | + +--------+ + + + documented in this encounter Results ECHO Interpretation of Outside Films (05/02/2019 4:47 PM PDT) + + | Specimen | + [...] junct: 3.58 cm EDV(Teich): 93.92 ml IVSd: 1.12 cm | | | LVIDd: 4.53 cm LVPWd: 1.05 cm LVOT Area: 4.11 cm2 LVOT | | | Diam: 2.29 cm %FS: 36.56 % EF(Teich): 66.45 % ESV(Teich): | | | 31.50 ml LVIDs: 2.87 cm SV(Teich): 62.41 ml RV Major: | | | 7.28 cm RV Minor: 3.01 cm LVEF MOD A2C: 63.36 % SV MOD A2C: | | | 60.01 ml LVEF MOD A4C: 63.25 % SV MOD A4C: 85.18 ml EF | | | Biplane: 63.89 % LVEDV MOD BP: 116.54 ml LVESV MOD BP: | | | 42.07 ml LVEDV MOD A2C: 94.71 ml LVLd A2C: 8.44 cm LVEDV MOD | | | A4C: 134.67 ml LVLd A4C: 9.04 cm LVESV MOD A2C: 34.69 ml | | | LVLs A2C: 7.07 cm LVESV MOD A4C: 49.48 ml LVLs A4C: 7.35 cm | | | LAESV(A-L): 69.12 ml LAESV Index (A-L): 29.41 ml/m2 LAAs | | | A2C: 18.54 cm2 LAESV A-L A2C: 55.59 ml LALs A2C: 5.24 cm | | | LAAs A4C: 20.75 cm2 LAESV A-L A4C: 77.37 ml LALs A4C: 4.72 | | | cm RAAs: 15.78 cm2 RAESV A-L: 37.51 ml RAESV MOD: 37.87 ml | | | RALs: 5.63 cm TAPSE: 2.87 cm AV maxP.33 mmHg AV | | | meanP.31 mmHg AV Vmax: 1.35 m/s AV Vmean: 0.85 m/s AV | | | VTI: 29.14 cm VICKY Vmax: 3.33 cm2 VICKY (VTI): 3.99 cm2 AVAI | | | (Vmax): 0.00 cm2/m2 AVAI (VTI): 0.00 cm2/m2 LVOT maxPG: | | | 4.79 mmHg LVOT meanP.61 mmHg LVSI Dopp: 49.56 ml/m2 LVSV | | | Dopp: 116.47 ml LVOT Vmax: 1.09 m/s LVOT Vmean: 0.75 m/s | | | LVOT VTI: 28.29 cm MV A Stephen: 1.12 m/s MV Dec [place]: 3.54 | | | m/s2 MV DecT: 268.22 ms MV E Stephen: 0.95 m/s MV E/A Ratio: | | | 0.84 MV PHT: 77.78 ms MVA By PHT: 2.82 cm2 Septal e': 0.05 | | | m/s Septal E/e': 16.37 Lateral e': 0.06 m/s Lateral E/e': | | | 14.01 RAP: 5 mmHg RVSP: 30.32 mmHg TR maxP.32 mmHg | | | TR Vmax: 2.51 m/s RV s': 0.16 m/s Associate Professor Computer Science: WENDY | | | Authenticated by: Santo De La O Report Date/Time: 05-02-2019 | | | 17:39:38 | | + + + + + | Procedure Note | + + | Pancho, Rad Conversion - 05/26/2019 12:38 PM PDT Patient Name: Cassy Moreno of | | : 1945 Performing Physician: Santo | | Jairon [...] cmLVPWd: 1.05 | | cmLVOT Area: 4.11 [id number] Diam: 2.29 cm%FS: 36.56 %EF(Teich): 66.45 %ESV(Teich): [...] mlLAESV Index (A-L): 29.41 ml/m2LAAs A2C: 18.54 [id number] A-L | | A2C: 55.59 mlLALs A2C: 5.24 cmLAAs A4C: 20.75 xz5HNPUM A-L A4C: 77.37 mlLALs | | A4C: 4.72 cmRAAs: 15.78 [id number] A-L: 37.51 mlRAESV MOD: 37.87 mlRALs: 5.63 | | cmTAPSE: 2.87 cmAV maxP.33 mmHgAV meanP.31 mmHgAV Vmax: 1.35 m/Roberto | | Vmean: 0.85 m/Roberto VTI: 29.14 cmAVA Vmax: 3.33 cm2AVA (VTI): 3.99 [id number] (Vmax): | | 0.00 cm2/m2AVAI (VTI): 0.00 cm2/m2LVOT maxP.79 mmHgLVOT meanP.61 | | mmHgLVSI Dopp: 49.56 ml/m2LVSV Dopp: 116.47 mlLVOT Vmax: 1.09 m/sLVOT Vmean: | | 0.75 m/sLVOT VTI: 28.29 cmMV A Stephen: 1.12 m/sMV Dec [place]: 3.54 m/s2MV DecT: | | 268.22 msMV E Stephen: 0.95 m/sMV E/A Ratio: 0.84MV PHT: 77.78 msMVA By PHT: 2.82 | | aa6Waxhlr e': 0.05 m/sSeptal E/e': 16.37Lateral e': 0.06 m/sLateral E/e': | | 14.01RAP: 5 mmHgRVSP: 30.32 mmHgTR maxP.32 mmHgTR Vmax: 2.51 m/sRV s': | | 0.16 m/s Associate Professor Computer Science: DBSAuthenticated by: Santo Soliman Date/Time: 05-02-2019 | [...] A Stephen: 1.12 m/s | |MV Dec [place]: 3.54 m/s2 | |MV DecT: 268.22 ms [...] |RV s': 0.16 m/s | | | |Associate Professor Computer Science: DBS | |Authenticated by: Santo De La [...]
--- OUTSIDE RECORDS SUMMARY | ~2019-10-19 | XMS | Encounter Summary ---
Demographics + + + | Address | [id number] [place] [address] RD | | | [place] [address] | + + + | Home Phone | | + + + | Preferred Language | Unknown | + + + | Marital Status | Single | + + + | Lutheran Affiliation | Unknown | + + + | Race | Unknown | + + + | Ethnic Group | Unknown | + + + Author + + + | Author | [facility] | | | and [place] | + + + | Organization | [facility] | | | [...] Providers + +------+ + | Care Assistant Sales Director Name | Role | Phone | + +------+ + | Maikol Birmingham DO | PCP | | + +------+ + Reason for Visit + + + | Reason | Comments | + + + | New Patient | hoarseness,throat buring | + + + Evaluate & Treat (Routine) +--------+--------+ + + + + | Status | Reason | Specialty | Diagnoses / | Referred By | Referred To | | | | | Procedures | Contact | Contact | +--------+--------+ + + + + | Closed | | Otolaryngolog | Diagnoses | Qua[place], | Zapata, Feliciano | | | | y | history of | Maikol M, DO | E, MD [address] | | | | | smoking, | [address] | | | | | note | [address] | [address] | | | | | increase | [place], | [place], | | | | | hoarseness, | [place] [address] | [place] [address] | | | | | throat | Phone: | Phone: | | | | | burning | [phone] | [phone] | | | | | | Fax: | Fax: | | | | | | [phone] | [phone] | +--------+--------+ + + + + Encounter Details +--------+---------+ + + + | Date | Type | Department | Care Team | Description | +--------+---------+ + + + | 10/01/ | Office | [facility] | Feliciano Zapata MD | Dysphonia (Primary | | 2017 | Visit | OTOLARYNGOLOGY [address] | [address] | Dx) | | | | [address] | [address] [place], | | | | | [place], [place] | [place] [address] | | | | | [address] | [phone] | | | | | [phone] | | | +--------+---------+ + + + Social History [...] + + + | Blood Pressure | - | - | | + + + + + | Pulse | 62 | 10/01/2017 1:22 PM | | | | | PST | | + + + + + | Temperature | - | - | | + + + + + | Respiratory Rate | 16 | 10/01/2017 1:22 PM | | | | | PST | | + + + + + | Oxygen Saturation | 96% | 10/01/2017 1:22 PM | | | | | PST | | + + + + + | Inhaled Oxygen | - | - | | | Concentration | | | | + + + + + | Weight | 112.9 kg (249 lb) | 10/01/2017 1:22 PM | | | | | PST | | + + + + + | Height | 185.4 cm (6' 1") | 10/01/2017 1:22 PM | | | | | PST | | + + + + + | Body Mass Index | 32.85 | 10/01/2017 1:22 PM | | | | | PST | | + + + + + documented in this encounter Plan of Treatment +--------+---------+ + + + | Date | Type | Specialty | Care Team | Description | +--------+---------+ + + + | 12/01/ | Office | Cardiology | Charlotte Lobato DO | | | 2020 | Visit | | [address] | | | | | | [place] | | | | | | [address] | | | | | | | | +--------+---------+ + + + documented as of this encounter Visit Diagnoses + + | Diagnosis | + + | Dysphonia - Primary | + + documented in this encounter
--- OUTSIDE RECORDS SUMMARY | ~2019-10-19 | XMS | Encounter Summary ---
Demographics + + + | Address | [address] [place] [address] RD | | | [place] [address] | + + + | Home Phone | | + + + | Preferred Language | Unknown | + + + | Marital Status | Single | + + + | Jainism Affiliation | Unknown | + + + | Race | Unknown | + + + | Ethnic Group | Unknown | + + + Author + + + | Author | [facility] | | | and [place] | + + + | Organization | [facility] | | | [...] Team Providers + +------+ + | Care Director Transportation Name | Role | Phone | + +------+ + PCP | Unavailable | + +------+ + Encounter Details +--------+ + + + + | Date | Type | Department | Care Team | Description | +--------+ + + + + | 12/06/ | Hospital | [facility] | | | | 2009 | Encounter | MED CTR XRAY [address] | | | | | | [place] | | | | | | [place] [address] | | | | | | [phone] | | | +--------+ + + + [...] [place] | | | | | | [address] | | | | | | | | +--------+---------+ + + + documented as of this encounter Visit Diagnoses Not on filedocumented in this encounter"
--- OUTSIDE RECORDS SUMMARY | ~2019-10-19 | XMS | Encounter Summary ---
Demographics + + + | Address | [address] [place] [address] RD | | | [place] [address] | + + + | Home Phone | | + + + | Preferred Language | Unknown | + + + | Marital Status | Single | + + + | Confucianism Affiliation | Unknown | + + + | Race | Unknown | + + + | Ethnic Group | Unknown | + + + Author + + + | Author | [facility] | | | and [place] | + + + | Organization | [facility] | | | [...] Team Providers + +------+ + | Care Pasta Maker Name | Role | Phone | + [...] | Vitamin D | | | | [place], [place] | [place] [address] | deficiency; | | | | [address] | [phone] | Hypertriglyceridemia | | | | [phone] | | ; Smoker; Chronic | | [...] [place] | | | | | | [address] | | | | | | | [...]
--- OUTSIDE RECORDS SUMMARY | ~2019-10-19 | XMS | Encounter Summary ---
Demographics + + + | Address | [id number] [place] [address] RD | | | [place] [address] | + + + | Home Phone | | + + + | Preferred Language | Unknown | + + + | Marital Status | Single | + + + | Mandaen Affiliation | Unknown | + + + | Race | Unknown | + + + | Ethnic Group | Unknown | + + + Author + + + | Author | [facility] | | | and [place] | + + + | Organization | [facility] | | | and [...] Team Providers + +------+ + | Care Uniform Patrol Police Officer Name | Role | Phone | + +------+ + PCP | Unavailable | + +------+ + Encounter Details +--------+ + + + + | Date | Type | Department | Care Team | Description | +--------+ + + + + | 11/06/ | [facility] | [facility] | Gaurav Arteaga MD | | | 2005 - | Encounter | MED CTR GENERIC IP | [address] | | | | | CONV DEPT [address] | [place], [place] | | | 11/09/ | | [place], | [address] | | | 2005 | | [place] [address] | | | | | | [phone] | | | +--------+ + + + [...] | | | | | [place] [facility] | | | | | | [address] | | | | | | | | +--------+---------+ + + + documented as of this encounter Visit Diagnoses Not on filedocumented in this encounter"
--- OUTSIDE RECORDS SUMMARY | ~2019-10-19 | XMS | Encounter Summary ---
Demographics + + + | Address | [address] [place] [address] RD | | | [place] [address] | + + + | Home Phone | | + + + | Preferred Language | Unknown | + + + | Marital Status | Single | + + + | Buddhism Affiliation | Unknown | + + + | Race | Unknown | + + + | Ethnic Group | Unknown | + + + Author + + + | Author | [facility] | | | and [place] | + + + | Organization | [facility] | | [...] Team Providers + +------+ + | Care Compressor Station Engineer Name | Role | Phone | + [...] | (Primary Dx); | | | | [place], | [place], [place] | Diabetes (HCC) | | | | [place] [address] | [address] | | | | | [phone] | | | +--------+ + + + [...] [place] | | | | | | [address] | | | | | | | [...] for age. Signed by: Chente Medrano MD [facility] | | | 04/05/2014, 16:11 | | + + + + + | Procedure Note | + + | Chente Medrano MD - 04/05/2014 4:11 PM PDT Formatting of this note might be | | different from the original. TREADMILL STRESS TEST REPORT Patient Name: Yefri Woodward | Josh Study Date: 04/05/2014 Primary Care Provider: Rachele Patel MD MRN: | | [id number] : 1945 Age: 68 y.o. Gender: male [...] for age. Signed by: Chente Medrano MD [facility] 04/05/2014, 16:11 | |Indication: | | chest [...] | | |Signed by: Chente Medrano MD [facility] | | 04/05/2014, 16:11 | + + documented in this encounter Visit Diagnoses + + | Diagnosis | + + | Other chest pain - Primary | + + | Diabetes (HCC) | + + documented in this encounter"
--- OUTSIDE RECORDS SUMMARY | ~2019-10-19 | XMS | Encounter Summary ---
Demographics + + + | Address | [address] [place] [address] RD | | | [place] [address] | + + + | Home Phone | | + + + | Preferred Language | Unknown | + + + | Marital Status | Single | + + + | Yazdanism Affiliation | Unknown | + + + | Race | Unknown | + + + | Ethnic Group | Unknown | + + + Author + + + | Author | [facility] | | | and [place] | + + + | Organization | [facility] | | [...] Team Providers + +------+ + | Care Domestic Maid Name | Role | Phone | + [...] | | | | [place] | [phone] | | | | | [address] | | | | | | [phone] | | | +--------+ + + + [...] [place] | | | | | | [address] | | | | | | | [...] MV A Stephen: 1.12 m/s MV Dec [place]: 3.54 | | | m/s2 MV DecT: [...] Vmax: 2.51 m/s RV s': 0.16 m/s Human Resources Receptionist: WENDY | | | Authenticated by: Santo [...] cmLVPWd: 1.05 | | cmLVOT Area: 4.11 [id number] Diam: 2.29 cm%FS: 36.56 %EF(Teich): 66.45 %ESV(Teich): [...] mlLAESV Index (A-L): 29.41 ml/m2LAAs A2C: 18.54 [id number] A-L | | A2C: 55.59 mlLALs A2C: 5.24 cmLAAs A4C: 20.75 ax1UVNFX A-L A4C: 77.37 mlLALs | | A4C: 4.72 cmRAAs: 15.78 [id number] A-L: 37.51 mlRAESV MOD: 37.87 mlRALs: 5.63 | | cmTAPSE: 2.87 cmAV maxP.33 mmHgAV meanP.31 mmHgAV Vmax: 1.35 m/Roberto | | Vmean: 0.85 m/Roberto VTI: 29.14 cmAVA Vmax: 3.33 cm2AVA (VTI): 3.99 lk9VLFY (Vmax): | | 0.00 cm2/m2AVAI (VTI): 0.00 cm2/m2LVOT maxP.79 mmHgLVOT meanP.61 | | mmHgLVSI Dopp: 49.56 ml/m2LVSV Dopp: 116.47 mlLVOT Vmax: 1.09 m/sLVOT Vmean: | | 0.75 m/sLVOT VTI: 28.29 cmMV A Stephen: 1.12 m/sMV Dec [place]: 3.54 m/s2MV DecT: | | 268.22 msMV E Stephen: 0.95 m/sMV E/A Ratio: 0.84MV PHT: 77.78 msMVA By PHT: 2.82 | | zb3Eyjliz e': 0.05 m/sSeptal E/e': 16.37Lateral e': 0.06 m/sLateral E/e': | | 14.01RAP: 5 mmHgRVSP: 30.32 mmHgTR maxP.32 mmHgTR Vmax: 2.51 m/sRV s': | | 0.16 m/s Human Resources Receptionist: DBSAuthenticated by: Santo Soliman Date/Time: 05-02-2019 | [...] m/s | |AV VTI: 29.14 cm | |VICYK Vmax: 3.33 cm2 | |VICKY (VTI): 3.99 cm2 | |AVAI (Vmax): 0.00 cm2/m2 | |AVAI (VTI): 0.00 cm2/m2 | |LVOT maxP.79 mmHg | |LVOT meanP.61 mmHg | |LVSI Dopp: 49.56 ml/m2 | |LVSV Dopp: 116.47 ml | |LVOT Vmax: 1.09 m/s | |LVOT Vmean: 0.75 m/s | |LVOT VTI: 28.29 cm | |MV A Stephen: 1.12 m/s | |MV Dec [place]: 3.54 m/s2 | |MV DecT: 268.22 ms [...] |RV s': 0.16 m/s | | | |Human Resources Receptionist: DBS | |Authenticated by: Santo De La [...]
--- OUTSIDE RECORDS SUMMARY | ~2019-10-19 | XMS | Encounter Summary ---
Demographics + + + | Address | [address] [place] [address] RD | | | [place] [address] | + + + | Home Phone | | + + + | Preferred Language | Unknown | + + + | Marital Status | Single | + + + | Bahai Affiliation | Unknown | + + + | Race | Unknown | + + + | Ethnic Group | Unknown | + + + Author + + + | Author | [facility] | | | and [place] | + + + | Organization | [facility] | | | [...] Team Providers + +------+ + | Care Film Developer Name | Role | Phone | + +------+ + PCP | Unavailable | + +------+ + Encounter Details +--------+ + + + + | Date | Type | Department | Care Team | Description | +--------+ + + + + | 09/28/ | [facility] | [facility] | Tete Vazquez | | | 2012 | Encounter | MED CTR EMERGENCY | DO Karla Jones | | | | | TEA [address] | [facility] [place] | | | | | [place] | [address] | | | | | [address] | | | | | | [phone] | Colby Smith, | | | | | | [address] | | | | | | [place] | | | | | | [address] | | | | | | | [...] Description | +--------+---------+ + + + | 02/27/ | Office | Cardiology | LobatoCharlotte hui | | | 2020 | Visit | | [address] | | | | | | [place] | | | | | | [address] | | | | | | | | +--------+---------+ + + + documented as of this encounter Procedures + +--------+ + + + | Procedure Name | Priori | Date/Time | Associated Diagnosis | Comments | | | ty | | | | + +--------+ + + + | CBC WITH | Routin | 09/28/2013 | | Results for this | | DIFFERENTIAL | e | 10:39 PM | | procedure are in the | | | | PST | | results section. | + +--------+ + + + | LIPASE | Routin | 09/28/2013 | | Results for this | | | e | 10:39 PM | | procedure are in the | | | | PST | | results section. | + +--------+ + + + | COMPREHENSIVE | Routin | 09/28/2013 | | Results for this | | METABOLIC PANEL | e | 10:39 PM | | procedure are in the | | | | PST | | results section. | + +--------+ + + + documented in this encounter Results CBC with Differential (09/28/2013 10:39 PM PST) + + + + + + | Component | Value | Ref Range | Performed | Pathologist | | | | | At | Signature | + + + + + + | MANUAL | NO | | [facility] | | [facility] | | | [facility] | | | | | | C[facility] - | | | | | | LABORATORY | | + + + + + + | WBC | 5.3 | 4.0 - 11.0 K/uL | [facility] | | | | | | [facility] | | | | | | [facility]ICAL | | | | | | CENTER - | | | | | | LABORATORY | | + + + + + + | RBC | 4.26 (L) | 4.30 - 5.70 | [facility] | | | | | M/uL | [facility] | | | | | | MEDICAL | | | | | | CENTER - | | | | | | LABORATORY | | + + + + + + | Hemoglobin | 13.5 | 13.5 - 18.0 | [facility] | | | | | gm/dL | [facility] | | | | | | [facility]ICAL | | | | | | CENTER - | | | | | | LABORATORY | | + + + + + + | Hematocrit | 38.5 (L) | 40.0 - 51.0 % | [facility] | | | | | | [facility] | | | | | | [facility]ICAL | | | | | | CENTER - | | | | | | LABORATORY | | + + + + + + | MCV | 90.3 | 83.0 - 101.0 fL | [facility] | | | | | | [facility] | | | | | | [facility] | | | | | | CENTER - | | | | | | LABORATORY | | + + + + + + | MCH | 31.7 | 28.0 - 35.0 pg | [facility] | | | | | | [facility] | | | | | | [facility]ICAL | | | | | | CENTER - | | | | | | LABORATORY | | + + + + + + | MCHC | 35.1 | 32.0 - 36.0 | [facility] | | | | | g/dL | [facility] | | | | | | [facility] | | | | | | CENTER - | | | | | | LABORATORY | | + + + + + + | RDW-CV | 13.0 | <15.0 % | [facility] | | | | | | [facility] | | | | | | MEDICAL | | | | | | CENTER - | | | | | | LABORATORY | | + + + + + + | Platelet | 201 | 140 - 440 K/uL | [facility] | | | Count | | | [facility] | | | | | | MEDICAL | | | | | | CENTER - | | | | | | LABORATORY | | + + + + + + | % | 63.4 | 45 - 75 % | [facility] | | | Neutrophils | | | [facility] | | | | | | MEDICAL | | | | | | CENTER - | | | | | | LABORATORY | | + + + + + + | % | 25.3 | 20 - 45 % | [facility] | | | Lymphocytes | | | [facility] | | | | | | MEDICAL | | | | | | CENTER - | | | | | | LABORATORY | | + + + + + + | % Monocytes | 8.3 | 4 - 12 % | [facility] | | | | | | [facility] | | | | | | MEDICAL | | | | | | CENTER - | | | | | | LABORATORY | | + + + + + + | % | 2.6 | 0 - 5 % | [facility] | | | Eosinophils | | | [facility] | | | | | | MEDICAL | | | | | | CENTER - | | | | | | LABORATORY | | + + + + + + | % Basophils | 0.4 | 0 - 1 % | [facility] | | | | | | [facility] | | | | | | MEDICAL | | | | | | CENTER - | | | | | | LABORATORY | | + + + + + + | Absolute | 3.3 | 1.5 - 6.6 K/uL | [facility] | | | Neutrophils | | | [facility] | | | | | | MEDICAL | | | | | | CENTER - | | | | | | LABORATORY | | + + + + + + | Absolute | 1.3 | 0.6 - 3.2 K/uL | [facility] | | | Lymphocytes | | | [facility] | | | | | | MEDICAL | | | | | | CENTER - | | | | | | LABORATORY | | + + + + + + | Absolute | 0.4 | 0.0 - 1.0 K/uL | [facility] | | | Monocytes | | | [facility] | | | | | | MEDICAL | | | | | | CENTER - | | | | | | LABORATORY | | + + + + + + | Absolute | 0.1 | 0.0 - 0.4 K/uL | [facility] | | | Eosinophils | | | [facility] | | | | | | MEDICAL | | | | | | CENTER - | | | | | | LABORATORY | | + + + + + + | Absolute | 0.0 | 0.0 - 0.1 K/uL | [facility] | | | Basophils | | | [facility] | | | | | | MEDICAL | | | | | | CENTER - | | | | | | LABORATORY | | + + + + + + + + | Specimen | + + | | + + + + + + + | Performing | Address | City/State/Zipcode | Phone Number | | Organization | | | | + + + + + | [facility] | [address] | [place], [place] | [phone] | | [facility] | | [address] | | | - LABORATORY | | | | + + + + + | [facility] | [address] | [place], [place] | | | [facility] | | [address] | | | - LABORATORY | | | | + + + + + Comprehensive Metabolic Panel (09/28/2013 10:39 PM PST) + + + + + + | Component | Value | Ref Range | Performed | Pathologist | | | | | At | Signature | + + + + + + | Glucose | 377 (H) | 70 - 109 mg/dL | [facility] | | | | | | [facility] | | | | | | MEDICAL | | | | | | CENTER - | | | | | | LABORATORY | | + + + + + + | Calcium | 8.7 | 8.3 - 10.5 | [facility] | | | | | mg/dL | [facility] | | | | | | MEDICAL | | | | | | CENTER - | | | | | | LABORATORY | | + + + + + + | Alkaline | 56 | 40 - 110 IU/L | [facility] | | | Phosphatase | | | [facility] | | | | | | MEDICAL | | | | | | CENTER - | | | | | | LABORATORY | | + + + + + + | AST | 22 | 10 - 42 IU/L | [facility] | | | | | | [facility] | | | | | | MEDICAL | | | | | | CENTER - | | | | | | LABORATORY | | + + + + + + | ALT | 36 | 6 - 45 IU/L | [facility] | | | | | | [facility] | | | | | | MEDICAL | | | | | | CENTER - | | | | | | LABORATORY | | + + + + + + | Bilirubin | 0.8 | 0.2 - 1.0 mg/dL | [facility] | | | Total | | | [facility] | | | | | | MEDICAL | | | | | | CENTER - | | | | | | LABORATORY | | + + + + + + | Total | 6.1 | 6.0 - 7.8 gm/dL | [facility] | | | Protein | | | [facility] | | | | | | MEDICAL | | | | | | CENTER - | | | | | | LABORATORY | | + + + + + + | Albumin | 3.6 | 3.2 - 5.0 gm/dL | [facility] | | | | | | [facility] | | | | | | MEDICAL | | | | | | CENTER - | | | | | | LABORATORY | | + + + + + + | BUN | 14 | 7 - 18 mg/dL | [facility] | | | | | | [facility] | | | | | | MEDICAL | | | | | | CENTER - | | | | | | LABORATORY | | + + + + + + | Creatinine | 1.37 (H) | 0.60 - 1.30 | [facility] | | | | | mg/dL | [facility] | | | | | | [facility] | | | | | | CENTER - | | | | | | LABORATORY | | + + + + + + | Estimated | 52 (L)Comment: For | >60 mL/min/A | [facility] | | | GFR | -Americans, | | [facility] | | | | please multiply the | | MEDICAL | | | | result by 1.210 | | CENTER - | | | | This is an estimated | | LABORATORY | | | | GFR and is based on a | | | | | | standard adult | | | | | | body mass (A=1.73m2) and | | | | | | serum creatinine | | | | + + + + + + | BUN/Creatin | 10.2 (L) | 12 - 20 | [facility] | | | ine Ratio | | | [facility] | | | | | | MEDICAL | | | | | | CENTER - | | | | | | LABORATORY | | + + + + + + | Na | 134 (L) | 136 - 149 mEq/L | [facility] | | | | | | [facility] | | | | | | MEDICAL | | | | | | CENTER - | | | | | | LABORATORY | | + + + + + + | K | 3.8 | 3.5 - 5.1 mEq/l | [facility] | | | | | | [facility] | | | | | | MEDICAL | | | | | | CENTER - | | | | | | LABORATORY | | + + + + + + | Cl | 100 | 98 - 109 mEq/l | [facility] | | | | | | [facility] | | | | | | MEDICAL | | | | | | CENTER - | | | | | | LABORATORY | | + + + + + + | CO2 | 27 | 24 - 31 mEq/L | [facility] | | | | | | [facility] | | | | | | MEDICAL | | | | | | CENTER - | | | | | | LABORATORY | | + + + + + + | Anion Gap | 10.8 | 6.0 - 17.0 | [facility] | | | | | | [facility] | | | | | | MEDICAL | | | | | | CENTER - | | | | | | LABORATORY | | + + + + + + + + | Specimen | + + | | + + + + + + + | Performing | Address | City/State/Zipcode | Phone Number | | Organization | | | | + + + + + | [facility] | [address] | [place], [place] | [phone] | | [facility] | | [address] | | | - LABORATORY | | | | + + + + + | [facility] | [address] | [place] | | | [facility] | | [address] | | | - LABORATORY | | | | + + + + + Lipase (09/28/2013 10:39 PM PST) + +-------+ + + + | Component | Value | Ref Range | Performed | Pathologist | | | | | At | Signature | + +-------+ + + + | Lipase | 20 | 0 - 60 U/L | [facility] | | | | | | [facility] | | | | | | MEDICAL | | | | | | CENTER - | | | | | | LABORATORY | | + +-------+ + + + + + | Specimen | + + | | + + + + + + + | Performing | Address | City/State/Zipcode | Phone Number | | Organization | | | | + + + + + | [facility] | [address] | [place] | [phone] | | [facility] | | [address] | | | - LABORATORY | | | | + + + + + | [facility] | [address] | [place] | | | [facility] | | [address] | | | - LABORATORY | | | | + + + + + documented in this encounter Visit Diagnoses Not on filedocumented in this encounter"
--- OUTSIDE RECORDS SUMMARY | ~2019-10-19 | XMS | Clinical Summary ---
Demographics + + + | Address | [address] [place] [address] RD | | | [place] [address] | + + + | Home Phone | | + + + | Preferred Language | Unknown | + + + | Marital Status | Single | + + + | Episcopal Affiliation | Unknown | + + + | Race | Unknown | + + + | Ethnic Group | Unknown | + + + Author + + + | Author | [facility] | | | and [place] | + + + | Organization | [facility] | | | and [...] Team Providers + +------+ + | Care China Painter Name | Role | Phone | + [...] [place] | | | | | | [address] | | | | | | | [...] | | | | | by [facility] [place] Read Only, | | | | | | [facility] Kris ([phone]), | | | | | | rewrite editor Sinan Mo | | | | | | ([phone]) on 07/28/2019 | | | | | [...] +--------+ +---------+--------+ | MEDICARE | MEDICA | [id number] | 11/05/19 | [phone] | | Medica | | | RE | | 16-Pre | 5 | | re | | | PART A | | sent | | | | | | AND B | | | | | | + +--------+ +--------+ +---------+--------+ | MEDICARE | MEDICA | [id number] | 11/05/19 | [phone] | | Medica | | | RE | | 16-Pre | 5 | | re | | | PART A | | sent | | | | | | AND B | | | | | | + +--------+ +--------+ +---------+--------+ | [facility] | IHS | [id number] | | | | Indemn | | SERVICE | YELLOW | | 014-Pr | | | ity | | | HAWK | | esent | | | | + +--------+ +--------+ +---------+--------+ | [facility] | IHS | [id number] | 10/05/19 | | | Indemn | [...] Person | Self | [birth year] | [address] | | | al/Fam | | 1946 | [phone] | [address] [place] | | | [place] | | | 8 (Home) | [address] | + +--------+ +--------+ + + | Yefri Moreno | Person | Self | [birth year] | [address] | | | al/Fam | | 1946 | [phone] | [address] [place] | | | [place] | | | [address] (Home) | [address] | + +--------+ +--------+ + + Advance Directives + + + + + | Type | Date Recorded | Patient | Explanation | | | | Textbook Associate | | + + + + + | Power of | | | refused | | Waste Disposal Plant Operator | | | | + + + + + | Advance | 04/05/2014 9:29 | | | | Directive | AM | | | + + + + +
--- OUTSIDE RECORDS SUMMARY | ~2019-10-19 | XMS | Encounter Summary ---
Demographics + + + | Address | [address] [place] [address] RD | | | [place] [address] | + + + | Home Phone | | + + + | Preferred Language | Unknown | + + + | Marital Status | Single | + + + | Sabianist Affiliation | Unknown | + + + | Race | Unknown | + + + | Ethnic Group | Unknown | + + + Author + + + | Author | [facility] | | | and [place] | + + + | Organization | [facility] | | | and [...] Team Providers + +------+ + | Care Melt Helper Name | Role | Phone | + +------+ + PCP | Unavailable | + +------+ + Encounter Details +--------+ + + + + | Date | Type | Department | Care Team | Description | +--------+ + + + + | 06/06/ | Hospital | [facility] | Hansel Davis MD | | | 2007 | Encounter | [facility] | | | | | | CLINICAL DECISION | | | | | | [address] | | | | | | [place] | | | | | | [address] | | | | | | [phone] | | | +--------+ + + + [...] [place] | | | | | | [address] | | | | | | | | +--------+---------+ + + + documented as of this encounter Visit Diagnoses Not on filedocumented in this encounter"
--- OUTSIDE RECORDS SUMMARY | ~2019-10-19 | XMS | Encounter Summary ---
Demographics + + + | Address | [address] [place] [address] RD | | | [place] [address] | + + + | Home Phone | | + + + | Preferred Language | Unknown | + + + | Marital Status | Single | + + + | Latter Day Affiliation | Unknown | + + + | Race | Unknown | + + + | Ethnic Group | Unknown | + + + Author + + + | Author | [facility] | | | and [place] | + + + | Organization | [facility] | | [...] Team Providers + +------+ + | Care Sheriff'S Officer Name | Role | Phone | [...] [place] | | | | | | [place] CV STRS | [place] | | | | | | TST XERS&/OR | [address] | | | | | | RX CONT ECG | Phone: | | | | | | W/SI&R [place] | [phone] | | | | | | CV STRS TST | Fax: | | | | | | XERS&/OR RX | [phone] | | | | | | CONT ECG W/O | | | | | | | I&R [place] | | | | | | | CARDIAC | | | | | | | STRESS | | | | | | | TST,TRACING | | | | | | | ONLY NV | | | | | | | [...] + + | 04/05/ | Hospital | [facility] | Rachele Patel MD | Other chest pain | | 2014 | Encounter | MED CTR NUCLEAR | [address] | (Primary Dx) | | | | MEDICINE [address] | [place], [place] | | | | | [place], | [address] | | | | | [place] [address] | | | | | | [phone] | | | +--------+ + + + [...] [place] | | | | | | [address] | | | | | | | [...] for age. Signed by: Chente Medrano MD [facility] | | | 04/05/2014, 16:11 | | + + + + + | Procedure Note | + + | Chente Medrano MD - 04/05/2014 4:11 PM PDT Formatting of this note might be | | different from the original. TREADMILL STRESS TEST REPORT Patient Name: Yefri Moreno Study Date: 04/05/2014 Primary Care Provider: Rachele Patel MD MRN: | | [id number] : 1945 Age: 68 y.o. Gender: male [...] for age. Signed by: Chente Medrano MD [facility] 04/05/2014, 16:11 | |Indication: | | [...] | | |Signed by: Chente Medrano MD [facility] | | 04/05/2014, 16:11 | + + documented in this encounter Visit Diagnoses + + | Diagnosis | + + | Other chest pain - Primary | + + documented in this encounter"
--- OUTSIDE RECORDS SUMMARY | ~2019-10-19 | XMS | Encounter Summary ---
Demographics + + + | Address | [address] [place] [address] RD | | | [place] [address] | + + + | Home Phone | | + + + | Preferred Language | Unknown | + + + | Marital Status | Single | + + + | Anabaptism Affiliation | Unknown | + + + [...] Team Providers + +------+ + | Care Family Practice Doctor Name | Role | Phone | + +------+ + PCP | Unavailable | + +------+ + Encounter Details +--------+ + + + + | Date | Type | Department | Care Team | Description | +--------+ + + + + | 11/06/ | [facility] | [facility] | Gaurav Arteaga MD | | | 2005 - | Encounter | MED CTR GENERIC IP | [address] | | | | | CONV DEPT [address] | [place], [place] | | | 11/09/ | | [place], | [address] | | | 2005 | | [place] [address] | | | | | | [phone] | | | +--------+ + + + [...] | | | [facility] | | | | | | [address] | | | | | | | | +--------+---------+ + + + documented as of this encounter Visit Diagnoses Not on filedocumented in this encounter"
--- OUTSIDE RECORDS SUMMARY | ~2019-10-19 | XMS | Encounter Summary ---
Demographics + + + | Address | [address] [place] [address] RD | | | [place] [address] | + + + | Home Phone | | + + + | Preferred Language | Unknown | + + + | Marital Status | Single | + + + | Synagogue Affiliation | Unknown | + + + | Race | Unknown | + + + | Ethnic Group | Unknown | + + + Author + + + | Author | [facility] | | | and [place] | + + + | Organization | [facility] | | | [...] Team Providers + +------+ + | Care Switch Foreman Name | Role | Phone | + +------+ + PCP | Unavailable | + +------+ + Encounter Details +--------+ + + + + | Date | Type | Department | Care Team | Description | +--------+ + + + + | 06/06/ | Hospital | [facility] | Hansel Davis MD | | | 2007 | Encounter | [facility] | | | | | | CLINICAL DECISION | | | | | | [address] | | | | | | [place] | | | | | | [address] | | | | | | [phone] | | | +--------+ + + + [...] [place] | | | | | | [address] | | | | | | | | +--------+---------+ + + + documented as of this encounter Visit Diagnoses Not on filedocumented in this encounter"
--- OUTSIDE RECORDS SUMMARY | ~2019-10-19 | XMS | Encounter Summary ---
Demographics + + + | Address | [address] [place] [address] RD | | | [place] [address] | + + + | Home Phone | | + + + | Preferred Language | Unknown | + + + | Marital Status | Single | + + + | Anglican Affiliation | Unknown | + + + | Race | Unknown | + + + | Ethnic Group | Unknown | + + + Author + + + | Author | [facility] | | | and [place] | + + + | Organization | [facility] | | | and [...] Team Providers + +------+ + | Care Parts Runner Name | Role | Phone | + +------+ + PCP | Unavailable | + +------+ + Encounter Details +--------+ + + + + | Date | Type | Department | Care Team | Description | +--------+ + + + + | 09/28/ | [facility] | [facility] | Tete Vazquez | | | 2012 | Encounter | MED CTR EMERGENCY | DO Karla Jones | | | | | WHEELER [address] | [facility] [place] | | | | | [place] | [address] | | | | | [address] | | | | | | [phone] | [place], | | | | | | [address] | | | | | | [place] | | | | | | [address] | | | | | | | [...] [place] | | | | | | [address] | | | | | | | [...] + | [facility] | [address] | [place], [place] | [phone] | | [facility] | | [address] | | | - LABORATORY | | | | + + + + + | [facility] | [address] | [place], [place] | | | [facility] | | [address] | | | - LABORATORY | | [...] + | [facility] | [address] | [place], [place] | [phone] | | [facility] | | [address] | | | - LABORATORY | | | | + + + + + | [facility] | [address] | [place] | | | [facility] | | [address] | | | - LABORATORY | | [...] + | [facility] | [address] | [place] | [phone] | | [facility] | | [address] | | | - LABORATORY | | | | + + + + + | [facility] | [address] | [place] | | | [facility] | | [address] | | | - LABORATORY | | | | + + + + + documented in this encounter Visit Diagnoses Not on filedocumented in this encounter"
--- OUTSIDE RECORDS SUMMARY | ~2019-10-19 | XMS | Encounter Summary ---
Demographics + + + | Address | [address] [place] [address] RD | | | [place] [address] | + + + | Home Phone | | + + + | Preferred Language | Unknown | + + + | Marital Status | Single | + + + | Yazidism Affiliation | Unknown | + + + | Race | Unknown | + + + | Ethnic Group | Unknown | + + + Author + + + | Author | [facility] | | | and [place] | + + + | Organization | [facility] | | | [...] Team Providers + +------+ + | Care Job Service Consultant Name | Role | Phone | + [...] | | y | history of | Maiklo M, DO | E, MD [address] | | | | | smoking, | [address] | | | | | note | RD | [address] | | | | | increase | [place], | [place], | | | | | hoarseness, | [place] [address] | [place] [address] | | | | | throat | Phone: | Phone: | | | | | burning | [phone] | [phone] | | | | | | Fax: | Fax: | | | | | | [phone] | [phone] | +--------+--------+ + + + + Encounter Details +--------+---------+ + + + | Date | Type | Department | Care Team | Description | +--------+---------+ + + + | 10/01/ | Office | [facility] | Feliciano Zapata MD | Dysphonia (Primary | | 2017 | Visit | OTOLARYNGOLOGY [address] | [address] [place] | Dx) | | | | [address] | [address] [place], | | | | | [place], [place] | [place] [address] | | | | | [address] | [phone] | | | | | [phone] | | | +--------+---------+ + + + [...] [place] | | | | | | [address] | | | | | | | | +--------+---------+ + + + documented as of this encounter Visit Diagnoses + + | Diagnosis | + + | Dysphonia - Primary | + + documented in this encounter
--- OUTSIDE RECORDS SUMMARY | ~2019-10-19 | XMS | Encounter Summary ---
Demographics + + + | Address | [address] [place] [address] RD | | | [place] [address] | + + + | Home Phone [...] Team Providers + +------+ + | Care Floor Helper Name | Role | Phone | + +------+ + PCP | Unavailable | + +------+ + Encounter Details +--------+ + + + + | Date | Type | Department | Care Team | Description | +--------+ + + + + | 12/06/ | Hospital | [facility] | | | | 2009 | Encounter | MED CTR XRAY [address] | | | | | | [place] | | | | | | [place] [address] | | | | | | [phone] | | | +--------+ + + + [...] [place] | | | | | | [address] | | | | | | | | +--------+---------+ + + + documented as of this encounter Visit Diagnoses Not on filedocumented in this encounter"
--- OUTSIDE RECORDS SUMMARY | ~2019-10-19 | XMS | Clinical Summary ---
Demographics + + + | Address | [address] [place] [address] RD | | | [place] [address] | + + + | Home Phone | | + + + | Preferred Language | Unknown | + + + | Marital Status | Single | + + + | Taoism Affiliation | Unknown | + + + | Race | Unknown | + + + | Ethnic Group | Unknown | + + + Author + + + | Author | [employer] [facility] (Historical as of | | | 05-21-19) | + + + | Organization | [facility] (Historical as of | | | 05-21-19) [...] Team Providers + +------+ + | Care Toe Trimmer Name | Role | Phone | + [...] +------+-------+ + | MEDICARE | MEDICA | [id number] | | | [address] | | | RE | | | | [place] [address] | | | IP-OP | | | | | + +--------+ +------+-------+ + | [place] [employer]/[employer] | YELLOW | [id number] | | | | | PLANS | [...] | Self | [birth year] Home: | [address] [facility] | | | al/Fam | | 1946 | [phone] | [place] | | | [place] | | | [phone] | [phone] | + +--------+ +--------+ + +"
[~2019-10-19 14:07] MED LIST changes: +BACTRIM DS TAB1 EACH PO
[2019-10-19] MEDS ORDERED: TIZANIDINE HCL4 M1 PO (14:30)
--- NOTE | 2019-10-19 19:28 | EKG ---
[facility] [address] [place] [address] Signed Sinus bradycardia Right bundle branch block Abnormal ECG When compared with ECG of 05-APR-2019 16:12, No significant change was found Confirmed by FELICITY SMYTH MD ([id number]) on 10/19/2019 7:28:39 PM Electronically Signed By: FELICITY SMYTH MD 10/19/19 1928 PATIENT NAME: PATRICIO VIVAS [facility] Electrocardiogram DATE OF : 43 PHYSICIAN: FELICITY SMYTH MD REPORT #: [id number] REPORT IS CONFIDENTIAL AND NOT TO BE RELEASED WITHOUT AUTHORIZATION
== END 2019-10-19 16:46 | disposition home or self-care (01) ==
LOC: ED 14:07
DX: R40.0 Somnolence (principal); T42.8X5A Adverse effect of antiparkinsonism drugs and other central muscle-tone depressants, initial encounter; E11.9 Type 2 diabetes mellitus without complications; I10 Essential (primary) hypertension; Z88.0 Allergy status to penicillin; Z88.8 Allergy status to other drugs, medicaments and biological substances; Z88.1 Allergy status to other antibiotic agents; Z79.899 Other long term (current) drug therapy; Z79.4 Long term (current) use of insulin; Z79.82 Long term (current) use of aspirin
CPT/HCPCS: 80053; 85025; 93005; 93010; 99285-25; J7030

== ENCOUNTER 2021-03-21 03:33 | Emergency (ER) | payer MEDICARE, OTHER ==
[~2021-03-21] VITALS: Ht 190.5 cm; Wt 111.1 kg
[~2021-03-21 03:33] MED LIST changes: +TIZANIDINE HCL4 M1 PO
[2021-03-21] MEDS ORDERED: TAMSULOSIN HCL0.4 MG PO (03:46)
[2021-03-21] MEDS ORDERED: GLIMEPIRIDE4 MG PO (03:46)
[2021-03-21] MEDS ORDERED: IRBESARTAN300 MG PO (03:46)
[2021-03-21] MEDS ORDERED: AMLODIPINE BESY10 MG PO (03:46)
== END 2021-03-21 04:38 | disposition home or self-care (01) ==
LOC: ED 03:33
DX: J06.9 Acute upper respiratory infection, unspecified (principal); E11.9 Type 2 diabetes mellitus without complications; I10 Essential (primary) hypertension; E78.00 Pure hypercholesterolemia, unspecified; Z88.0 Allergy status to penicillin; Z88.8 Allergy status to other drugs, medicaments and biological substances; Z88.1 Allergy status to other antibiotic agents; Z79.899 Other long term (current) drug therapy; Z79.4 Long term (current) use of insulin; Z79.82 Long term (current) use of aspirin
CPT/HCPCS: 71046; 99283-25

== ENCOUNTER 2021-03-26 17:19 | Emergency (ER) | payer MEDICARE, OTHER ==
[~2021-03-26] VITALS: Ht 190.5 cm; Wt 111.1 kg
[~2021-03-26 17:19] MED LIST changes: +AMLODIPINE BESY10 MG PO; +GLIMEPIRIDE4 MG PO; +IRBESARTAN300 MG PO; +TAMSULOSIN HCL0.4 MG PO
--- OUTSIDE RECORDS SUMMARY | 2021-03-26 17:24 | XMS ---
PreManage Notification: PATRICIO VIVAS Security Business Associate Events No recent Security Events currently on file CRITERIA MET - [facility] - 2 Visits in 30 Days CARE PROVIDERS [facility] 07/18/2019-[facility] PHONE: [phone] Perla has no Care Guidelines for this patient. Care History Medical/Surgical 07/18/2019 [facility] \T\middot;\T\nbsp; PATIENT- [facility] ELIGIBLE \T\middot;\T\nbsp; PLEASE REFER PATIENT TO [facility] FOR NON EMERGENT MEDICAL NEEDS. \T\middot;\ T\nbsp; [facility] CAN SEE PATIENTS SAME DAY FOR APTS IF PATIENT CALLS FIRST THING IN THE MORNING. E.D. VISIT COUNT (12 MO.) [address] TOTAL 3 NOTE: Visits indicate total known visits. ED/C VISIT TRACKING (12 MO.) 03/26/2021 17:20 [facility] TYPE: Emergency COMPLAINT: - HEADACHE/SOB [facility] DIAGNOSES: - Hypotension, unspecified - Hypomagnesemia - Dehydration - Hypotension - Anemia, unspecified - Chronic kidney disease, stage 3 unspecified 03/21/2021 03:[address] [facility] [place] TYPE: Emergency COMPLAINT: - SORE THROAT, CHEST PAIN DIAGNOSES: - Essential (primary) hypertension - Allergy status to other antibiotic agents - Allergy status to penicillin - Cough - Pure hypercholesterolemia, unspecified - Other longterm (current) drug therapy - manager intermediate (current) use of aspirin - manager intermediate (current) use of insulin - Allergy status to other drugs, medicaments and biological substances - Type 2 diabetes mellitus without complications - Acute upper respiratory infection, unspecified INPATIENT VISIT TRACKING (12 MO.) No inpatient visits to display in this time frame [email or web address]
--- NOTE | 2021-03-28 18:31 | EKG ---
[facility] [address] [facility] [place] [address] Signed Normal sinus rhythm Right bundle branch block Abnormal ECG When compared with ECG of 19-OCT-2019 14:16, No significant change was found Confirmed by FELICITY SMYTH MD ([id number]) on 03/28/2021 6:30:53 PM Electronically Signed By: FELICITY SMYTH MD 03/28/211830 PATIENT NAME: PATRICIO VIVAS [facility] Electrocardiogram DATE OF : 43 PHYSICIAN: FELICITY SMYTH MD REPORT #: [id number] REPORT IS CONFIDENTIAL AND NOT TO BE RELEASED WITHOUT AUTHORIZATION
== END 2021-03-26 22:12 | disposition home or self-care (01) ==
LOC: ED 17:19
DX: U07.1 COVID-19 (principal); E11.9 Type 2 diabetes mellitus without complications; I10 Essential (primary) hypertension; E78.00 Pure hypercholesterolemia, unspecified; Z87.891 Personal history of nicotine dependence; Z88.0 Allergy status to penicillin; Z88.8 Allergy status to other drugs, medicaments and biological substances; Z88.1 Allergy status to other antibiotic agents; Z79.899 Other long term (current) drug therapy; Z79.82 Long term (current) use of aspirin
CPT/HCPCS: 71045; 80053; 81001; 83735; 84484; 85025; 93005; 93010; 99285-25; M0245

== ENCOUNTER 2021-05-17 04:36 | Emergency (ER) | payer MEDICARE, OTHER ==
[~2021-05-17] VITALS: Ht 190.5 cm; Wt 115.7 kg
[2021-05-17] MEDS ORDERED: METFORMIN HCL500 M1 PO (04:47)
[2021-05-17] MEDS ORDERED: GLIMEPIRIDE4 MG PO (04:48)
[2021-05-17] MEDS ORDERED: CYCLOBENZAPRINE10 MG PO (05:07)
== END 2021-05-17 06:49 | disposition home or self-care (01) ==
LOC: ED 04:36
DX: M54.42 Lumbago with sciatica, left side (principal); E11.9 Type 2 diabetes mellitus without complications; I10 Essential (primary) hypertension; E78.00 Pure hypercholesterolemia, unspecified; Z87.891 Personal history of nicotine dependence; Z88.0 Allergy status to penicillin; Z88.8 Allergy status to other drugs, medicaments and biological substances; Z88.1 Allergy status to other antibiotic agents; Z79.899 Other long term (current) drug therapy; Z79.84 Long term (current) use of oral hypoglycemic drugs; Z79.82 Long term (current) use of aspirin
CPT/HCPCS: 99283

== ENCOUNTER 2021-06-03 11:57 | Emergency (ER) | payer MEDICARE, OTHER ==
[~2021-06-03] VITALS: Ht 190.5 cm; Wt 115.7 kg
[~2021-06-03 11:57] MED LIST changes: +CYCLOBENZAPRINE10 MG PO; +METFORMIN HCL500 M1 PO
--- OUTSIDE RECORDS SUMMARY | 2021-06-03 12:02 | XMS ---
PreManage Notification: PATRICIO VIVAS Security Hair Cutter Events No recent Security Events currently on file CRITERIA MET - [facility] - 2 Visits in 30 Days CARE PROVIDERS [facility] 07/18/2019-[facility] PHONE: [phone] Perla has no Care Guidelines for this patient. Care History Medical/Surgical 07/18/2019 [facility] \T\middot;\T\nbsp; PATIENT- [facility] ELIGIBLE \T\middot;\T\nbsp; PLEASE REFER PATIENT TO [facility] FOR NON EMERGENT MEDICAL NEEDS. \T\middot;\ T\nbsp; [facility] CAN SEE PATIENTS SAME DAY FOR APTS IF PATIENT CALLS FIRST THING IN THE MORNING. E.D. VISIT COUNT (12 MO.) [address] TOTAL 5 NOTE: Visits indicate total known visits. 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 hypoglycemic drugs - penitentiary (current) use of aspirin - Essential (primary) hypertension - Type 2 diabetes mellitus without complications - Allergy status to other drugs, medicaments and biological substances - Other intermediate designer (current) drug therapy - Allergy status to penicillin - Low back pain - Allergy status to other antibiotic agents - Personal history of nicotine dependence - Lumbago with sciatica, left side 03/26/2021 17:20 [facility] TYPE: Emergency COMPLAINT: - HEADACHE/SOB DIAGNOSES: - Allergy status to other antibiotic agents - penitentiary (current) use of aspirin - Allergy status to penicillin - Essential (primary) hypertension - COVID-19 - Allergy status to other drugs, medicaments and biological substances - Pure hypercholesterolemia, unspecified - Type 2 diabetes mellitus without complications - Fever, unspecified - Personal history of nicotine dependence - Other intermediate designer (current) drug therapy 03/25/2021 16:24 [facility] TYPE: Emergency DIAGNOSES: - Hypotension, unspecified - Hypomagnesemia - Dehydration - Hypotension - Anemia, unspecified - Chronic kidney disease, stage 3 unspecified 03/21/2021 03:34 [facility] TYPE: Emergency COMPLAINT: - SORE THROAT, CHEST PAIN DIAGNOSES: - Essential (primary) hypertension - Allergy status to other antibiotic agents - Allergy status to penicillin - Cough - Pure hypercholesterolemia, unspecified - Other alf (current) drug therapy - superintendent [employer] (current) use of aspirin - penitentiary (current) use of insulin - Allergy status to other drugs, medicaments and biological substances - Type 2 diabetes mellitus without complications - Acute upper respiratory infection, unspecified INPATIENT VISIT TRACKING (12 MO.) No inpatient visits to display in this time frame [id number]
[2021-06-03] MEDS ORDERED: AMLODIPINE BESYL5 MG PO (14:29)
--- NOTE | 2021-06-03 17:20 | EKG ---
[facility] [address] [facility] [place] [address] Signed Normal sinus rhythm Right bundle branch block T wave abnormality, consider inferior ischemia Abnormal ECG When compared with ECG of 26-MAR-2021 18:18, T wave inversion now evident in Inferior leads Confirmed by RAMANA HALE MD ([id number]) on 06/03/2021 5:20:22 PM Electronically Signed By: RAMANA HALE MD 06/03/21 1720 PATIENT NAME: PATRICIO VIVAS [facility] Electrocardiogram DATE OF : 43 PHYSICIAN: RAMANA HALE MD REPORT #: [id number] REPORT IS CONFIDENTIAL AND NOT TO BE RELEASED WITHOUT AUTHORIZATION
== END 2021-06-03 15:05 | disposition home or self-care (01) ==
LOC: ED 11:57
DX: I10 Essential (primary) hypertension (principal); E11.9 Type 2 diabetes mellitus without complications; E78.00 Pure hypercholesterolemia, unspecified; Z87.891 Personal history of nicotine dependence; Z79.899 Other long term (current) drug therapy; Z88.0 Allergy status to penicillin; Z88.1 Allergy status to other antibiotic agents; Z88.8 Allergy status to other drugs, medicaments and biological substances; Z79.82 Long term (current) use of aspirin
CPT/HCPCS: 71045; 80053; 84484; 85025; 93005; 93010; 99285-25

== ENCOUNTER 2022-02-21 14:11 | Emergency (ER) | payer MEDICARE, OTHER ==
[~2022-02-21] VITALS: Ht 190.5 cm; Wt 117.9 kg
[~2022-02-21 14:11] MED LIST changes: +AMLODIPINE BESYL5 MG PO
[2022-02-21] MEDS ORDERED: TAMSULOSIN HCL0.4 MG PO (14:40)
[2022-02-21] MEDS ORDERED: TRULICITY0.75 MG/0. SUB-Q (14:41)
--- NOTE | 2022-02-23 08:57 | EKG ---
[facility] [address] [facility] [place] [address] Signed Sinus bradycardia Right bundle branch block Abnormal ECG When compared with ECG of 03-JUN-2021 12:05, Vent. rate has decreased BY 37 BPM T wave inversion no longer evident in Inferior leads Confirmed by FELICITY SMYTH MD ([id number]) on 02/23/2022 8:57:32 AM Electronically Signed By: FELICITY SMYTH MD 02/23/22 0857 PATIENT NAME: PATRICIO VIVAS [facility] Electrocardiogram DATE OF : 43 PHYSICIAN: FELICITY SMYTH MD REPORT #: [id number] REPORT IS CONFIDENTIAL AND NOT TO BE RELEASED WITHOUT AUTHORIZATION
== END 2022-02-21 17:44 | disposition home or self-care (01) ==
LOC: ED 14:11
DX: R55 Syncope and collapse (principal); E11.9 Type 2 diabetes mellitus without complications; I10 Essential (primary) hypertension; E78.00 Pure hypercholesterolemia, unspecified; Z87.891 Personal history of nicotine dependence; Z88.0 Allergy status to penicillin; Z88.8 Allergy status to other drugs, medicaments and biological substances; Z88.1 Allergy status to other antibiotic agents; Z79.899 Other long term (current) drug therapy; Z79.4 Long term (current) use of insulin; Z79.82 Long term (current) use of aspirin; Z79.84 Long term (current) use of oral hypoglycemic drugs
CPT/HCPCS: 36415; 80053; 83735; 84484; 85025; 93005; 93010; 99284-25

== ENCOUNTER 2022-05-12 02:04 | Emergency (ER) | payer MEDICARE, OTHER ==
[~2022-05-12] VITALS: Ht 190.5 cm; Wt 118.0 kg
[~2022-05-12 02:04] MED LIST changes: +TRULICITY0.75 MG/0. SUB-Q
[2022-05-12] MEDS ORDERED: METFORMIN HCL500 M1 PO (02:12)
[2022-05-12] MEDS ORDERED: JARDIANCE10 MG PO (02:14)
== END 2022-05-12 04:11 | disposition home or self-care (01) ==
LOC: ED 02:04
DX: R04.2 Hemoptysis (principal); R11.0 Nausea; E11.9 Type 2 diabetes mellitus without complications; I10 Essential (primary) hypertension; Z87.891 Personal history of nicotine dependence; Z79.899 Other long term (current) drug therapy; Z79.84 Long term (current) use of oral hypoglycemic drugs; Z79.82 Long term (current) use of aspirin; Z88.1 Allergy status to other antibiotic agents; Z88.0 Allergy status to penicillin; Z88.8 Allergy status to other drugs, medicaments and biological substances
CPT/HCPCS: 36415; 71046; 80053; 85025; 85610; 85730; A9270

== ENCOUNTER 2024-03-24 12:14 | Emergency (ER) | payer MEDICARE, OTHER ==
[~2024-03-24] VITALS: Ht 188 cm; Wt 106.3 kg
[~2024-03-24 12:14] MED LIST changes: -AMLODIPINE BESY10 MG PO; +JARDIANCE10 MG PO; +OMEPRAZOLE40 MG PO; -TRULICITY0.75 MG/0. SUB-Q; +TRULICITY3 MG/0.5 M SUB-Q
[2024-03-24] MEDS ORDERED: SODIUM CHLORIDE 0.9% 1,000 ML IV ONE (12:30)
[2024-03-24] MEDS ORDERED: LORATADINE10 MG PO (12:38)
[2024-03-24] MEDS ORDERED: LANTUS100 UNITS/ SUB-Q (12:38)
[2024-03-24] MEDS ORDERED: ARNUITY ELLIPT50 MCG INH (12:39)
[2024-03-24 12:40] LABS: BASOPHILS 0.7 % (0-2); EOSINOPHILS 2.4 % (0-6); HEMATOCRIT 38.8 % (35.0-50.0); HEMOGLOBIN 13.1 g/dL (12.0-18.0); LYMPHOCYTES 17.7 % (24-44); MCH 29.7 (27-36); MCHC 33.7 g/dl (30-36); MCV 88.2 fl (81-99); MONOCYTES 7.1 % (0-12); NEUTROPHILS 72.1 % (39-80); PLATELET COUNT 195 K/uL (140-440); RDW 14.5 (10.5-15.0)
[2024-03-24] MEDS ORDERED: VITAMIN D350 MC3 PO (12:40)
[2024-03-24 12:58] LABS: ALBUMIN 3.5 g/dL (3.4-5.0); ALBUMIN/GLOBULIN RATIO 1.09 (1.1-2.4); ANION GAP 11.4 (7-21); BILIRUBIN, TOTAL 0.7 ng/dL (0.2-1.0); BUN/CREATININE RATIO 11.33 (6.0-28.6); CALCIUM 8.4 mg/dL (8.5-10.1); CREATININE, SERUM 1.5 mg/dL (0.70-1.30); POTASSIUM 4.4 mmol/L (3.5-5.1); PROTEIN, TOTAL 6.7 g/dL (6.4-8.2)
[2024-03-24 14:19] LABS: BILIRUBIN, URINE NEGATIVE (negative); BLOOD/HGB, URINE NEGATIVE (Negative); KETONE, URINE NEGATIVE (Negative); LEUK ESTERASE, URINE NEGATIVE (negative); NITRITE, URINE NEGATIVE (negative)
[2024-03-24 15:40] VITALS: BP 150/84
--- NOTE | 2024-03-25 16:10 | EKG ---
[facility] [address] [facility] [place] [address] Signed Normal sinus rhythm Right bundle branch block Abnormal ECG When compared with ECG of 24-SEP-2023 18:52, No significant change was found Confirmed by Agapito Flynn ([id number]) on 03/25/2024 4:10:00 PM Electronically Signed By: AGAPITO FLYNN MD 03/25/24 1610 PATIENT NAME: PATRICIO VIVAS [facility] Electrocardiogram DATE OF : 43 PHYSICIAN: AGAPITO FLYNN MD REPORT #: [id number] REPORT IS CONFIDENTIAL AND NOT TO BE RELEASED WITHOUT AUTHORIZATION
== END 2024-03-24 15:40 | disposition home or self-care (01) ==
LOC: ED 12:14
PROVIDERS: Emergency Medicine
DX: R42 Dizziness and giddiness (principal); E11.9 Type 2 diabetes mellitus without complications; I10 Essential (primary) hypertension; E78.00 Pure hypercholesterolemia, unspecified; Z79.51 Long term (current) use of inhaled steroids; Z79.2 Long term (current) use of antibiotics; Z79.4 Long term (current) use of insulin; Z88.0 Allergy status to penicillin; Z88.1 Allergy status to other antibiotic agents; Z88.8 Allergy status to other drugs, medicaments and biological substances; Z87.891 Personal history of nicotine dependence
CPT/HCPCS: 36415; 70498; 71045; 80053; 81003; 84484; 85025; 93005; 93010; J7030; Q9967

== ENCOUNTER 2025-07-21 22:53 | Emergency (ER) | payer MEDICARE, OTHER ==
[~2025-07-21] VITALS: Ht 188 cm; Wt 100.0 kg
[~2025-07-21 22:53] MED LIST changes: +ARNUITY ELLIPT50 MCG INH; +LORATADINE10 MG PO; +VITAMIN D350 MC3 PO
[2025-07-21] MEDS ORDERED: FLUCONAZOLE 200 MG TAB PO ONE (23:30)
[2025-07-21] MEDS ORDERED: LIDOCAINE HCL 4% 50 ML BTL TOP ONE (23:30)
[2025-07-21] MEDS ORDERED: NYSTATIN100000 UN1 TOP (23:45)
[2025-07-21] MEDS ORDERED: FLUCONAZOLE200 MG PO (23:45)
[2025-07-21] MEDS ORDERED: HURRICAINE ONE1 EACH MM (23:45)
[2025-07-21 23:52] VITALS: BP 158/75
== END 2025-07-21 23:52 | disposition home or self-care (01) ==
LOC: ED 22:53
DX: B37.0 Candidal stomatitis (principal); E11.9 Type 2 diabetes mellitus without complications; I10 Essential (primary) hypertension; E78.00 Pure hypercholesterolemia, unspecified; Z87.891 Personal history of nicotine dependence; Z88.0 Allergy status to penicillin; Z88.1 Allergy status to other antibiotic agents; Z88.8 Allergy status to other drugs, medicaments and biological substances; Z79.85 Long-term (current) use of injectable non-insulin antidiabetic drugs; Z79.84 Long term (current) use of oral hypoglycemic drugs; Z79.4 Long term (current) use of insulin; Z79.82 Long term (current) use of aspirin; Z79.899 Other long term (current) drug therapy
CPT/HCPCS: 99282